=== PATIENT | female | born 2000 | race Caucasian/White ===

== ENCOUNTER 2020-10-10 01:19 | Observation (INO) | payer OTHER, SELFPAY ==
[2020-10-10] VITALS (9 sets, daily range): BP systolic 110–138; BP diastolic 60–95; PULSE 71–105; RESP 16–18; TEMP 35.7–36.6; O2SAT 99–100; BMI 22.4
--- NOTE | ~2020-10-10 | CT_ITS ---
EXAMINATION: CT abdomen pelvis w con DATE: 10/10/2020 03:50 INDICATION: Epigastric pain. Elevated lipase. TECHNIQUE: Computed tomography (CT) of the abdomen and pelvis was performed with 100 mL Omnipaque-350 intravenous contrast. Automated exposure control and iterative reconstruction technique were employe d. The dose-length product was 262.72 mGy-cm. COMPARISON: None FINDINGS: Calcified right lower lobe nodule consistent with old granulomatous disease. Heart size is normal. No pericardial or pleural effusion. Liver, gallbladder, spleen, bilateral adrenal glands and kidneys ar e normal. Swelling with interstitial edema in the head and body of the pancreas system with acute int erstitial pancreatitis. There is additional nonloculated peripancreatic fluid/edema which extends int o the right anterior pararenal space. No loculated abscess/pseudocyst. No nonenhancing pancreatic nec rosis. No abnormal bowel wall thickening or obstruction. The appendix is not visualized. No pericecal inflammatory change to suggest acute appendicitis. Bladder, uterus and right adnexa are normal. 1.4 cm cyst/follicle at the left ovary. Trace amount of free fluid at the cul-de-sac. No abscess or free intraperitoneal gas. No pathologically enlarged abdominal or pelvic lymphadenopathy. Mild lumbar dext rocurvature. L5 is sacralized on the right.. IMPRESSION: 1. Radiographically uncomplicated acute interstitial pancreatitis. Reviewed, dictated and finalized at location A.
--- NOTE | 2020-10-10 02:00 | ECG_ITS ---
Measurements Intervals [place] Rate: 92 P: 84 [place]: 168 QRS: 77 QRSD: 87 T: 24 QT: 357 QTc: 443 Interpretive Statements SINUS RHYTHM POSSIBLE LEFT ATRIAL ENLARGEMENT MINIMAL Q WAVES- INFERIOR LEADS BASELINE ARTIFACT- I, III, AVL BORDERLINE ECG Electronically Signed On 10-10-2020 7:05:33 CDT by Josh Ambrocio D.O.
--- NOTE | 2020-10-10 02:08 | ED.ABDPAIN ---
HPI - Abdominal Pain General Chief Complaint: Abdominal Pain Stated Complaint: abd pain, vomiting Time Seen by Provider: 10/10/20 01:54 Source: patient Mode of arrival: ambulatory Limitations: no limitations History of Present Illness HPI narrative: This is a 19 year old female with history of PUD who presents for evaluation of epigastric abdominal pain. She developed this pain 3 hours ago. She describes pain as sharp constant that will radiate to her back and chest pain. She has associated nausea, vomiting. She took Tylenol just prior to arrival without improvement of her pain. She rates her pain 10/10. She reports having normal BM today. Denies history of pancreatitis or gallbladder disease Related Data Home Medications Medication Instructions Recorded Confirmed venlafaxine [Effexor XR] 37.5 mg PO DAILY 10/10/20 10/10/20 Allergies Allergy/AdvReac Type Severity Reaction Status Date / Time No Known Allergies Allergy Unverified 09/21/15 16:53 Review of Systems Review of Systems: All systems reviewed & are unremarkable except as noted in HPI and below Constitutional: Constitutional: Denies chills and Denies fever(s) Cardiovascular: Cardiovascular: Reports chest pain, Denies rapid heart rate and Denies radiating jaw, neck or arm pain Respiratory: Respiratory: Denies cough and Denies dyspnea Gastrointestinal: Gastrointestinal: Reports abdominal pain, Denies diarrhea, Reports nausea and Reports vomiting PMFSH Past Medical History Medical History (Updated 10/10/20 @ 05:04 by Debra Zambrano MD) Peptic ulcer disease Surgical History Surgical History (Updated 10/10/20 @ 02:11 by Debra Zambrano MD) No pertinent past surgical history Social History Social History (Updated 10/10/20 @ 02:11 by Debra Zambrano MD) Tobacco type: e-cigarettes/vaping Alcohol intake: current Drinks per week: 6 Alcohol use details: 2 drinks a couple times a week Other substance usage details: use vape Spiritual care concerns: No Exam Const: General: alert Orientation/consciousness: patient oriented x3 Eyes: EOM: EOMs intact bilaterally Resp: Effort & Inspection: normal respiratory effort and no retractions Auscultation: clear to auscultation bilaterally Cardio: Rate: regular rate Rhythm: regular rhythm Heart sounds: no murmurs GI: GI Palp: Yes Soft to palpation, Yes Tenderness to palpation present (GI) (RUQ, epigastric, mild RLQ), No Guarding due to palpation present (GI) and No Rigid due to palpation Auscultation: normal bowel sounds Back/Spine/Pelvis: Back: no CVA tenderness Skin: General skin exam: normal color Rashes: no rashes Neuro: General: patient oriented x3, moves all extremities and CN's II-XI intact bilaterally Course Reevaluation(s) Reevaluation #1: I Discussed with patient and family that she will be admitted for pancreatitis. She reports drink 2 [employer] hard lemonades tonight. Date: 10/10/20 Time: 05:02 Consultations Consultation #1: I discussed case, CT and labs with Dr. marcus. She accepts to hospitalist service with aggressive hydration. Date: 10/10/20 Time: 05:03 Vital Signs Vital signs: Vital Signs Temperature 96.3 F L 10/10/20 01:32 Pulse Rate 102 H 10/10/20 01:32 Respiratory Rate 18 10/10/20 01:32 Blood Pressure 110/67 10/10/20 01:32 Pulse Oximetry 100 10/10/20 01:32 Temperature 97.9 F 10/10/20 06:10 Pulse Rate 71 10/10/20 06:10 Respiratory Rate 16 10/10/20 06:10 Blood Pressure 127/71 10/10/20 06:10 Pulse Oximetry 100 10/10/20 06:10 MDM - Abdominal Pain Lab Data Attestation: I reviewed the patient's lab results. Result diagrams: 10/10/20 02:20 10/10/20 02:20 Labs: Lab Results 10/10/20 10/10/20 10/10/20 Range/Units 02:05 02:20 02:20 WBC 13.5 H (4.5-10.0) K/mm3 RBC 4.33 (4.2-5.4) M/mm3 Hgb 14.0 (12.0-15.0) g/dL Hct 40.3 (37.0-47.0) % MCV 93.1
[2020-10-10 02:19] LABS: Add Urine Microscopic? YES; Appearance Urine Cloudy (Clear); Bacteria Urine Trace /hpf; Bilirubin Urine Negative (Negative); Blood Urine Negative (Negative); Color Urine Yellow (Yellow); Glucose Urine UA Negative (Negative); Ketones Urine Trace mg/dL (Negative); Leukocyte Esterase Ur Trace LEU/UL (Negative); Mucus Urine Few /lpf; Nitrate Urine Negative (Negative); Protein Urine Negative (Negative); RBC Urine 0-2 /hpf (0-2); Specific Grav Ur 1.019 (1.001-1.035); Squamous Epithelial Cell Urine Occasional /hpf (Few); Urobilinogen Urine Negative mg/dL (<2.0)
[2020-10-10] MEDS: LACTATED RINGERS 1,000 ML 999 ML IV CONT ×2 (02:21→05:42)
[2020-10-10] MEDS: ONDANSETRON INJ 4 MG/2 ML VIAL IV PUSH ×4 (02:21→20:44)
[2020-10-10] MEDS: PANTOPRAZOLE SODIUM IV 40 MG VIAL IV PUSH (02:21)
[2020-10-10 02:27] LABS: Basophils Absolute Auto 0.1 K/mm3 (0.0-0.1); Basophils Percent Auto 0.4 % (0.2-1.2); Eosinophils Percent Auto 0.1 % (0-4.4); Hematocrit 40.3 % (37.0-47.0); Immature Granulocyte Absolute 0.07 K/mm3 (0.00-0.031); Immature Granulocyte Percent A 0.5 % (0-0.5); Lymphocytes Absolute Auto 1.26 K/mm3 (0.9-3.2); Lymphocytes Percent Auto 9.3 % (18.3-44.2); Mean Corpuscular HGB Conc 34.7 g/dl (32-36); Mean Corpuscular Hemoglobin 32.3 pg (26-34); Mean Corpuscular Volume 93.1 fl (80-100); Mean Platelet Volume 9.7 fl (7.4-10.4); Monocytes Absolute Auto 0.7 K/mm3 (0.1-0.6); Monocytes Percent Auto 5.2 % (2.6-8.5); Neutrophils Absolute Auto 11.4 K/mm3 (1.3-6.7); Neutrophils Percent Auto 84.5 % (45.5-73.1); Platelet Count Result 224 k/mm3 (150-375); Red Blood Count 4.33 M/mm3 (4.2-5.4); Red Cell Distribution Width 12.1 % (11.5-14.5); White Blood Count 13.5 K/mm3 (4.5-10.0)
[2020-10-10 02:41] LABS: Alanine Aminotransferase 18 U/L (4-35); Albumin Level 4.8 g/dL (3.5-5.1); Alkaline Phosphatase 43 U/L (38-126); Anion Gap 11 mmol/L (8-16); Aspartate Amino Transferase 27 U/L (14-36); Bilirubin,Total 0.5 mg/dL (0.2-1.3); Blood Urea Nitrogen 16 mg/dL (7-17); Calcium 9.4 mg/dL (8.4-10.2); Carbon Dioxide 27 mmol/L (22-30); Chloride 97 mmol/L (98-107); Estimated Glomerular Filt Rate > 60; Glucose 107 mg/dL (65-105); Potassium 3.7 mmol/L (3.4-5.0); Sodium 135 mmol/L (137-145)
[2020-10-10 03:02] LABS: Lipase 5886 U/L (23-300)
[2020-10-10] MEDS: MORPHINE SULFATE (*CRX) 2 MG/ML INJ IV PUSH (03:12)
[2020-10-10] MEDS: PROMETHAZINE HCL 25 MG/ML AMPUL 12.5 MG IV PUSH (03:39)
[2020-10-10] MEDS: MORPHINE SULFATE (*CRX) 4 MG/ML INJ IV PUSH ×8 (05:40→23:14)
--- NOTE | 2020-10-10 06:07 | ADMGEN ---
This patient, Chen Ralph, was admitted to Medical Room 241-01. Patient/family oriented to hospital policies and general routines including ID bracelet, bed and alarms, visiting hours, pain management, procedures, bathroom and other care routines, personal items, smoking policy, room service/diet, and visiting hours. Information on how to activate the Rapid Response Team has been discussed. Patient/Family are encouraged to report perceived risks to care and to ask questions if they do not understand what they are told or what they should do.
[2020-10-10] MEDS: LACTATED RINGERS 1,000 ML 200 ML IV CONT ×4 (06:11→21:55)
[2020-10-10] MEDS: FAMOTIDINE 20 MG/2 ML VIAL IV PUSH ×2 (09:09→20:40)
--- NOTE | 2020-10-10 13:11 | PM.IMPN ---
Progress Note: A&P Assessment and Plan (1) Acute pancreatitis: Qualifiers: Acute pancreatitis complication: unspecified Pancreatitis type: alcohol induced Qualified Code(s): K85.20 - Alcohol induced acute pancreatitis without necrosis or infection Code(s): K85.90 - Acute pancreatitis without necrosis or infection, unspecified Status: Acute Assessment and Plan: 10/10/20 13:11 Patient is a 19 year old female with history peptic ulcer disease, depression, and and alcohol use presented to emergency depart with complaint of epigastric pain which started last night at 11:30 p.m., patient still c/o pain, it is sharp and Band like across her abdomen severe enough to cause her to vomit, denies any fever chills, patient lipase are elevated 5886, Ct scan of abdomen showed radiographically uncomplicated acute interstitial pancreatitis. Most likely patient has alcohol-related acute pancreatitis, will keep the patient NPO, IV for fluids, pain medication as needed, will trend her lipase and plan, her last drink was on 10/09 morning. stats no hx of DT. Will continue to monitor and further recommendation to follow. (2) Depression: Code(s): F32.9 - Major depressive disorder, single episode, unspecified Status: Acute Assessment and Plan: Will resume anti depression when patient able to take oral medication (3) Alcohol abuse: Code(s): F10.10 - Alcohol abuse, uncomplicated Status: Acute Assessment and Plan: Patient with history alcohol consumption will continue to monitor Subjective Date/time seen: 10/10/20 13:11 Patient is a 19 year old female with history peptic ulcer disease, depression, and and alcohol use presented to emergency depart with complaint of epigastric pain which started last night at 11:30 p.m., patient still c/o pain, it is sharp and Band like across her abdomen severe enough to cause her to vomit, denies any fever chills, patient lipase are elevated 5886, Ct scan of abdomen showed radiographically uncomplicated acute interstitial pancreatitis. Most likely patient has alcohol-related acute pancreatitis, will keep the patient NPO, IV for fluids, pain medication as needed, will trend her lipase and plan, her last drink was on 10/09 morning. stats no hx of DT. Will continue to monitor and further recommendation to follow. Review of Systems Review of Systems: All systems reviewed & are unremarkable except as noted in HPI and below Exam Narrative: Exam Narrative: Patient is comfortable, NAD HEENT: eyes are clear and none icteric LUNGS:CTA HEART: RR S1S2 ABD: BS+, tender in epigastric Lower extremities: no edema SKIN: nonjaundiced Neuro: grossly intact. Objective Data Vital Signs Vital Signs: Vital Signs - 24 hr 10/10/20 01:32 10/10/20 02:00 10/10/20 03:10 Temperature 96.3 F L 97.6 F Pulse Rate 102 H 105 H Respiratory Rate 18 16 Blood Pressure 110/67 138/95 H Pulse Oximetry 100 100 10/10/20 04:27 10/10/20 06:10 10/10/20 06:18 Temperature 97.9 F 97.1 F L Pulse Rate 80 71 82 Respiratory Rate 16 16 16 Blood Pressure 137/88 127/71 130/77 Pulse Oximetry 100 100 100 10/10/20 10:29 Temperature Pulse Rate Respiratory Rate Blood Pressure Pulse Oximetry 99 Intake/Output Intake/Output: Intake & Output 10/07/20 10/08/20 10/09/20 10/10/20 23:59 23:59 23:59 23:59 Intake Total 3100 Balance 3100 Meds/Results Medications: Active Medications Generic Name Dose Route Start Last Admin Trade Name Freq PRN Reason Stop Dose Admin Famotidine 20 mg 10/10/20 09:00 10/10/20 09:09 Famotidine 20 Mg/2 Ml Vial IV PUSH 20 mg Q12HR MADDIE Administration Acetaminophen 1,000 mg in 100 mls @ 400 mls/hr 10/10/20 05:04 10/10/20 06:13 Ofirmev 1,000 Mg Ivpb IVPB 10/11/20 05:05 Infused Q6H PRN Infusion Mild Pain (1-3) or Fever Lactated Ringer's 1,000 mls @ 200 mls/hr 10/10/20 05:05 10/10/20 11:33 Lr
[2020-10-10 15:05] LABS: Amphetamine Screen Urine Negative (Negative); Barbiturate Screen Urine Negative (Negative); Benzodiazepines Screen Urine Negative (Negative); Cannabinoid Screen Urine Negative (Negative); Cocaine Screen Urine Negative (Negative); Methadone Screen Urine Negative (Negative); Opiate Screen Urine Positive (Negative); Phencyclidine Screen Urine Negative (Negative)
[2020-10-10] MEDS: MELATONIN 3 MG TABLET PO (20:40)
[2020-10-11] MEDS: LACTATED RINGERS 1,000 ML 200 ML IV CONT (03:34)
[2020-10-11] MEDS: MORPHINE SULFATE (*CRX) 4 MG/ML INJ IV PUSH ×2 (03:34→05:44)
[2020-10-11 05:32] LABS: Basophils Percent Auto 0.3 % (0.2-1.2); Eosinophils Percent Auto 0.4 % (0-4.4); Hematocrit 34.2 % (37.0-47.0); Hemoglobin 11.8 g/dL (12.0-15.0); Immature Granulocyte Absolute 0.03 K/mm3 (0.00-0.031); Immature Granulocyte Percent A 0.4 % (0-0.5); Lymphocytes Absolute Auto 1.08 K/mm3 (0.9-3.2); Lymphocytes Percent Auto 14.6 % (18.3-44.2); Mean Corpuscular HGB Conc 34.5 g/dl (32-36); Mean Corpuscular Hemoglobin 32.3 pg (26-34); Mean Corpuscular Volume 93.7 fl (80-100); Mean Platelet Volume 9.9 fl (7.4-10.4); Monocytes Absolute Auto 0.5 K/mm3 (0.1-0.6); Monocytes Percent Auto 6.8 % (2.6-8.5); Neutrophils Absolute Auto 5.7 K/mm3 (1.3-6.7); Neutrophils Percent Auto 77.5 % (45.5-73.1); Platelet Count Result 148 k/mm3 (150-375); Red Blood Count 3.65 M/mm3 (4.2-5.4); Red Cell Distribution Width 12.3 % (11.5-14.5); White Blood Count 7.4 K/mm3 (4.5-10.0)
[2020-10-11 05:41] VITALS: BP 118/63; PULSE 80; RESP 16; TEMP 36.6; O2SAT 100
[2020-10-11 05:53] LABS: Alanine Aminotransferase 11 U/L (4-35); Albumin Level 3.1 g/dL (3.5-5.1); Alkaline Phosphatase 33 U/L (38-126); Anion Gap 2 mmol/L (8-16); Aspartate Amino Transferase 19 U/L (14-36); Bilirubin,Total 0.8 mg/dL (0.2-1.3); Blood Urea Nitrogen 3 mg/dL (7-17); Calcium 7.8 mg/dL (8.4-10.2); Carbon Dioxide 31 mmol/L (22-30); Chloride 102 mmol/L (98-107); Estimated CRCL calculation 119 ml/min; Estimated Glomerular Filt Rate > 60; Glucose 99 mg/dL (65-105); Lipase 780 U/L (23-300); Magnesium 1.5 mg/dL (1.6-2.3); Potassium 3.5 mmol/L (3.4-5.0); Sodium 135 mmol/L (137-145)
[2020-10-11] MEDS: MAGNESIUM SULF 2 GM/WATER 50ML 2 GM/50 ML BAG IVPB (08:24)
[2020-10-11] MEDS: FAMOTIDINE 20 MG/2 ML VIAL IV PUSH ×2 (08:25→20:06)
[2020-10-11] MEDS: HYDROcodone/acetaminophen (*CRX) 5-325 MG TABLET 1 TAB PO ×2 (08:25→18:00)
[2020-10-11] MEDS: POTASSIUM CHLORIDE 20 MEQ TABLET 40 MEQ PO (08:25)
[2020-10-11] MEDS: LACTATED RINGERS 1,000 ML 125 ML IV CONT ×2 (08:26→18:01)
[2020-10-11] MEDS: MAGNESIUM OXIDE 400 MG TABLET PO (09:06)
[2020-10-11] MEDS: ACETAMINOPHEN 325 MG TABLET 650 MG PO ×2 (12:32→20:11)
[2020-10-11 14:00] VITALS: BP 130/78; PULSE 94; RESP 16; TEMP 36.6; O2SAT 100
[2020-10-11 15:51] LABS: Lipase 513 U/L (23-300)
--- NOTE | 2020-10-11 16:30 | PM.IMPN ---
Progress Note: A&P Assessment and Plan (1) Acute pancreatitis: Qualifiers: Acute pancreatitis complication: unspecified Pancreatitis type: alcohol induced Qualified Code(s): K85.20 - Alcohol induced acute pancreatitis without necrosis or infection Code(s): K85.90 - Acute pancreatitis without necrosis or infection, unspecified Status: Acute Assessment and Plan: 10/11/20 16:30 Patient is a 19 year old female with history peptic ulcer disease, depression, and and alcohol use presented to emergency depart with complaint of epigastric pain which started last night at 11:30 p.m., patient still c/o pain, it is sharp and Band like across her abdomen severe enough to cause her to vomit, denies any fever chills, patient lipase are elevated 5886, Ct scan of abdomen showed radiographically uncomplicated acute interstitial pancreatitis. Most likely patient has alcohol-related acute pancreatitis, will keep the patient NPO, IV for fluids, pain medication as needed, will trend her lipase and plan, her last drink was on 10/09 morning. stats no hx of DT. Will continue to monitor and further recommendation to follow. Today patient states feeling much better the pain has improved and no nausea or vomiting, patient lipase had trended down from 5886 to 780 this am will start the patient on clear liquid, and advanced to full liquid as tolerated, will continue to monitor further recommendation to follow. (2) Depression: Code(s): F32.9 - Major depressive disorder, single episode, unspecified Status: Acute Assessment and Plan: Will resume anti depression when patient able to take oral medication (3) Alcohol abuse: Code(s): F10.10 - Alcohol abuse, uncomplicated Status: Acute Assessment and Plan: Patient with history alcohol consumption will continue to monitor Subjective Date/time seen: 10/11/20 16:30 Patient is a 19 year old female with history peptic ulcer disease, depression, and and alcohol use presented to emergency depart with complaint of epigastric pain which started last night at 11:30 p.m., patient still c/o pain, it is sharp and Band like across her abdomen severe enough to cause her to vomit, denies any fever chills, patient lipase are elevated 5886, Ct scan of abdomen showed radiographically uncomplicated acute interstitial pancreatitis. Most likely patient has alcohol-related acute pancreatitis, will keep the patient NPO, IV for fluids, pain medication as needed, will trend her lipase and plan, her last drink was on 10/09 morning. stats no hx of DT. Will continue to monitor and further recommendation to follow. Today patient states feeling much better the pain has improved and no nausea or vomiting, patient lipase had trended down from 5886 to 780 this am will start the patient on clear liquid, and advanced to full liquid as tolerated, will continue to monitor further recommendation to follow. Review of Systems Review of Systems: All systems reviewed & are unremarkable except as noted in HPI and below Exam Narrative: Exam Narrative: Patient is comfortable, NAD HEENT: eyes are clear and none icteric LUNGS:CTA HEART: RR S1S2 ABD: BS+, tender in epigastric Lower extremities: no edema SKIN: nonjaundiced Neuro: grossly intact. Objective Data Vital Signs Vital Signs: Vital Signs - 24 hr 10/10/20 21:15 10/11/20 05:41 Temperature 97.9 F 97.9 F Pulse Rate 91 80 Respiratory Rate 16 16 Blood Pressure 132/60 118/63 Pulse Oximetry 100 100 Intake/Output Intake/Output: Intake & Output 10/08/20 10/09/20 10/10/20 10/11/20 23:59 23:59 23:59 23:59 Intake Total 5200 3110 Output Total 600 Balance 4600 3110 Meds/Results Medications: Active Medications Generic Name Dose Route Start Last Admin Trade Name Freq PRN Reason Stop Dose Admin Acetaminophen 650 mg 10/11/20 07:56 10/11/20 12:32 Acetaminophen 325 Mg Tablet PO 650 mg
[2020-10-11 22:00] VITALS: BP 119/75; PULSE 92; RESP 16; TEMP 36.3; O2SAT 100
[2020-10-12] MEDS: HYDROcodone/acetaminophen (*CRX) 5-325 MG TABLET 1 TAB PO (01:34)
[2020-10-12] MEDS: LACTATED RINGERS 1,000 ML 125 ML IV CONT (01:36)
[2020-10-12 05:27] VITALS: BP 109/75; PULSE 84; RESP 16; TEMP 35.9; O2SAT 96
[2020-10-12 05:53] LABS: Hematocrit 34.9 % (37.0-47.0); Hemoglobin 11.6 g/dL (12.0-15.0); Mean Corpuscular HGB Conc 33.2 g/dl (32-36); Mean Corpuscular Hemoglobin 31.8 pg (26-34); Mean Corpuscular Volume 95.6 fl (80-100); Mean Platelet Volume 10.5 fl (7.4-10.4); Platelet Count Result 171 k/mm3 (150-375); Red Blood Count 3.65 M/mm3 (4.2-5.4); Red Cell Distribution Width 12.3 % (11.5-14.5); White Blood Count 8.7 K/mm3 (4.5-10.0)
[2020-10-12 06:11] LABS: Alanine Aminotransferase 10 U/L (4-35); Albumin Level 3.3 g/dL (3.5-5.1); Alkaline Phosphatase 40 U/L (38-126); Anion Gap 2 mmol/L (8-16); Aspartate Amino Transferase 20 U/L (14-36); Bilirubin,Total 0.5 mg/dL (0.2-1.3); Blood Urea Nitrogen 3 mg/dL (7-17); Calcium 8.1 mg/dL (8.4-10.2); Carbon Dioxide 31 mmol/L (22-30); Chloride 105 mmol/L (98-107); Estimated CRCL calculation 119 ml/min; Estimated Glomerular Filt Rate > 60; Glucose 110 mg/dL (65-105); Lipase 294 U/L (23-300); Potassium 3.8 mmol/L (3.4-5.0); Sodium 138 mmol/L (137-145)
[2020-10-12] MEDS: MAGNESIUM OXIDE 400 MG TABLET PO (08:54)
[2020-10-12] MEDS: FAMOTIDINE 20 MG/2 ML VIAL IV PUSH (08:55)
[2020-10-12 09:17] VITALS: O2SAT 99
--- NOTE | 2020-10-12 10:09 | PM.DS ---
DS: Admitting Diagnosis Admitting Diagnosis Admitting Diagnosis: Epigastric pain DS: Discharge Diagnosis Discharge Diagnosis (1) Acute pancreatitis: Qualifiers: Acute pancreatitis complication: unspecified Pancreatitis type: alcohol induced Qualified Code(s): K85.20 - Alcohol induced acute pancreatitis without necrosis or infection Code(s): K85.90 - Acute pancreatitis without necrosis or infection, unspecified Status: Acute Assessment and Plan: 10/11/20 16:30 Patient is a 19 year old female with history peptic ulcer disease, depression, and and alcohol use presented to emergency depart with complaint of epigastric pain which started last night at 11:30 p.m., patient still c/o pain, it is sharp and Band like across her abdomen severe enough to cause her to vomit, denies any fever chills, patient lipase are elevated 5886, Ct scan of abdomen showed radiographically uncomplicated acute interstitial pancreatitis. Most likely patient has alcohol-related acute pancreatitis, will keep the patient NPO, IV for fluids, pain medication as needed, will trend her lipase and plan, her last drink was on 10/09 morning. stats no hx of DT. Will continue to monitor and further recommendation to follow. Today patient states feeling much better the pain has improved and no nausea or vomiting, patient lipase had trended down from 5886 to 780 this am will start the patient on clear liquid, and advanced to full liquid as tolerated, will continue to monitor further recommendation to follow. (2) Depression: Code(s): F32.9 - Major depressive disorder, single episode, unspecified Status: Acute Assessment and Plan: Will resume anti depression when patient able to take oral medication (3) Alcohol abuse: Code(s): F10.10 - Alcohol abuse, uncomplicated Status: Acute Assessment and Plan: Patient with history alcohol consumption will continue to monitor DS: Summary Hospital Course Reason for hospitalization: Patient is a 19 year old female with history peptic ulcer disease, depression, and and alcohol use presented to emergency depart with complaint of epigastric pain which started last night at 11:30 p.m., patient still c/o pain, it is sharp and Band like across her abdomen severe enough to cause her to vomit, denies any fever chills, patient lipase are elevated 5886, Ct scan of abdomen showed radiographically uncomplicated acute interstitial pancreatitis. Most likely patient has alcohol-related acute pancreatitis, will keep the patient NPO, IV for fluids, pain medication as needed, will trend her lipase and plan, her last drink was on 10/09 morning. stats no hx of DT. Will continue to monitor and further recommendation to follow. Hospital Course: Patient is a 19 year old female with history peptic ulcer disease, depression, and and alcohol use presented to emergency depart with complaint of epigastric pain which started last night at 11:30 p.m., patient still c/o pain, it is sharp and Band like across her abdomen severe enough to cause her to vomit, denies any fever chills, patient lipase are elevated 5886, Ct scan of abdomen showed radiographically uncomplicated acute interstitial pancreatitis. Most likely patient has alcohol-related acute pancreatitis, will keep the patient NPO, IV for fluids, pain medication as needed, will trend her lipase and plan, her last drink was on 10/09 morning. stats no hx of DT. Will continue to monitor and further recommendation to follow. patient states feeling much better the pain has improved and no nausea or vomiting, patient lipase had trended down from 5886 to 780 this am will start the patient on clear liquid, and advanced to full liquid as tolerated, will continue to monitor further recommendation to follow. patient was feeling better yesterday started on clear liquids and advance her diet and able to tolerated her diet without any complaints, patient is
--- NOTE | 2020-11-07 10:44 | PM.IMHP ---
H&P: HPI History of Present Illness Date/Time: 11/07/20 10:44 Patient is a 19 year old female with history peptic ulcer disease, depression, and and alcohol use presented to emergency depart with complaint of epigastric pain which started last night at 11:30 p.m., patient still c/o pain, it is sharp and Band like across her abdomen severe enough to cause her to vomit, denies any fever chills, patient lipase are elevated 5886, Ct scan of abdomen showed radiographically uncomplicated acute interstitial pancreatitis. Most likely patient has alcohol-related acute pancreatitis, will keep the patient NPO, IV for fluids, pain medication as needed, will trend her lipase and plan, her last drink was on 10/09 morning. stats no hx of DT. Will continue to monitor and further recommendation to follow. Chief Complaint: Abdominal Pain Review of Systems Review of Systems: All systems reviewed & are unremarkable except as noted in HPI and below PMFSH Past Medical History Medical History (Updated 10/10/20 @ 13:23 by Bhavik Bronson MD) Peptic ulcer disease Surgical History Surgical History (Updated 10/10/20 @ 02:11 by Debra Zambrano MD) No pertinent past surgical history Family History Family History (Updated 10/10/20 @ 06:20 by Anastasia Stewart RN) Other Breast cancer Father Hypertension Mother Hypertension Heart attack Social History Social History (Updated 10/10/20 @ 02:11 by Debra Zambrano MD) Smoking packs per day: 0.5 Smoking cigarettes per day: 10.0 Years smoked: 4 Smoking pack-years: 2.00 Smoking status: Former smoker Tobacco type: cigarettes Second hand tobacco smoke exposure: Yes Smoking end date: 07/15/16 Additional smoking assessment comments: currently uses vape Alcohol intake: current Drinks per week: 6 Alcohol use details: 2 drinks a couple times a week Other substance usage details: use vape Spiritual care concerns: No Meds Home Medications and Allergies Home Medications Medication Instructions Recorded Confirmed Type venlafaxine [Effexor XR] 37.5 mg PO DAILY 10/10/20 10/10/20 History magnesium oxide 400 mg PO QAM #30 tablet 10/12/20 Rx Allergies Allergy/AdvReac Type Severity Reaction Status Date / Time No Known Allergies Allergy Unverified 09/21/15 16:53 Exam Narrative: Exam Narrative: Patient is comfortable, NAD HEENT: eyes are clear and none icteric LUNGS:CTA HEART: RR S1S2 ABD: BS+, tender in epigastric Lower extremities: no edema SKIN: nonjaundiced Neuro: grossly intact. Assessment and Plan Assessment and plan (1) Acute pancreatitis: Qualifiers: Acute pancreatitis complication: unspecified Pancreatitis type: alcohol induced Qualified Code(s): K85.20 - Alcohol induced acute pancreatitis without necrosis or infection Code(s): K85.90 - Acute pancreatitis without necrosis or infection, unspecified Status: Acute Assessment and Plan: Patient is a 19 year old female with history peptic ulcer disease, depression, and and alcohol use presented to emergency depart with complaint of epigastric pain which started last night at 11:30 p.m., patient still c/o pain, it is sharp and Band like across her abdomen severe enough to cause her to vomit, denies any fever chills, patient lipase are elevated 5886, Ct scan of abdomen showed radiographically uncomplicated acute interstitial pancreatitis. Most likely patient has alcohol-related acute pancreatitis, will keep the patient NPO, IV for fluids, pain medication as needed, will trend her lipase and plan, her last drink was on 10/09 morning. stats no hx of DT. Will continue to monitor and further recommendation to follow. (2) Alcohol abuse: Code(s): F10.10 - Alcohol abuse, uncomplicated Status: Acute Assessment and Plan: Patient with history alcohol consumption will continue to monitor (3) Depression: Code(s): F32.9 - Major depressive d
== END 2020-10-12 10:45 | disposition home or self-care (01) ==
LOC: ANHED 05:04 → ANH2MED 05:50
PROVIDERS: Admitting Provider Internal Medicine; Emergency Provider General Practice; PCP Family Medicine; Visit Provider Family Medicine
DX: K85.20 Alcohol induced acute pancreatitis without necrosis or infection (principal); K27.9 Peptic ulcer, site unspecified, unspecified as acute or chronic, without hemorrhage or perforation; F32.9 Major depressive disorder, single episode, unspecified; F10.10 Alcohol abuse, uncomplicated; F17.290 Nicotine dependence, other tobacco product, uncomplicated; Z79.899 Other long term (current) drug therapy
CPT/HCPCS: 36415; 74177; 80053; 80307; 81001; 81025; 83690; 83735; 85025; 85027; 93005; 96361; 96365; 96374; 96375; 96376; 99285; A9270; C9113; G0378; G0379; J0131; J2270; J2405; J2550; J3475; J7120; Q9967

== ENCOUNTER 2021-01-14 21:40 | Emergency (ER) | payer OTHER, SELFPAY ==
--- NOTE | ~2021-01-14 | XR_ITS ---
EXAMINATION: XR abdomen/kub 1V INDICATION: Constipation, lower abdominal pain TECHNIQUE: Supine views of the abdomen were obtained on 2 radiographs. COMPARISON: CT, 10/10/2020 FINDINGS: The bowel gas pattern is normal. No dilated loops of bowel are evident. The visualized osse ous structures are unremarkable. IMPRESSION: 1. No radiographic correlate for the patient's symptoms. Reviewed, dictated and finalized at location A.
[2021-01-14 21:46] VITALS: BP 146/103; PULSE 82; RESP 16; TEMP 36.4; O2SAT 100
--- NOTE | 2021-01-14 21:56 | PC.NURSE ---
Patient attempting to have a BM.
[2021-01-14 22:41] LABS: Add Urine Microscopic? YES; Appearance Urine Clear (Clear); Bilirubin Urine Negative (Negative); Blood Urine Negative (Negative); Color Urine Yellow (Yellow); Glucose Urine UA Negative (Negative); Ketones Urine 1+ mg/dL (Negative); Leukocyte Esterase Ur Negative LEU/UL (Negative); Mucus Urine Rare /lpf; Nitrate Urine Negative (Negative); Protein Urine 1+ mg/dL (Negative); Squamous Epithelial Cell Urine Many /hpf (Few); WBC Urine 0-3 /hpf
--- NOTE | 2021-01-14 22:42 | PC.NURSE ---
Xray in room at this time.
--- NOTE | 2021-01-14 23:16 | ED.GENADULT ---
HPI - General Adult General Chief complaint: Abdominal Pain Stated complaint: CONSTIPATED X2 DAYS Time Seen by Provider: 01/14/21 21:42 History of Present Illness HPI narrative: Patient is a 20-year-old female who presents ER with reports of constipation. Ongoing for 2 days. Feels like her rectum will spasm at times. She did just have a loose stool without blood noted. Patient also endorses dysuria ongoing over the last 5 days. She reports that she recently was exposed to chlamydia by her significant other. He was tested but has not been formally diagnosed. She reports she had chlamydia back in November of this year for which she received azithromycin and ceftriaxone. She denies anal intercourse but does endorse analingus. No pelvic pain or suprapubic pressure. No change in vaginal discharge. Related Data Home Medications Medication Instructions Recorded Confirmed venlafaxine [Effexor XR] 37.5 mg PO DAILY 10/10/20 10/10/20 dicyclomine mg 01/14/21 pantoprazole PO 01/14/21 Allergies Allergy/AdvReac Type Severity Reaction Status Date / Time No Known Allergies Allergy Verified 01/14/21 22:10 Review of Systems Review of Systems: All systems reviewed & are unremarkable except as noted in HPI and below Constitutional: Constitutional: Denies chills, Denies fever(s) and Denies weakness Gastrointestinal: Gastrointestinal: Denies abdominal pain, Reports constipation, Denies nausea and Denies vomiting Genitourinary: Genitourinary: Denies abnormal vaginal bleeding, Reports dysuria, Denies pelvic pain and Reports vaginal discharge [facility] Past Medical History Medical History (Updated 01/15/21 @ 00:37 by Monroe Haro MD) Peptic ulcer disease Surgical History Surgical History (Updated 10/10/20 @ 02:11 by Debra Zambrano MD) No pertinent past surgical history Family History Family History (Updated 10/10/20 @ 06:20 by Anastasia Stewart RN) Other Breast cancer Father Hypertension Mother Hypertension Heart attack Social History Social History (Updated 10/10/20 @ 02:11 by Debra Zambrano MD) Smoking packs per day: 0.5 Smoking cigarettes per day: 10.0 Years smoked: 4 Smoking pack-years: 2.00 Smoking status: Former smoker Tobacco type: cigarettes Second hand tobacco smoke exposure: Yes Smoking end date: 07/15/16 Additional smoking assessment comments: currently uses vape Alcohol intake: current Drinks per week: 6 Other substance usage details: use vape Spiritual care concerns: No Exam Narrative: Exam Narrative: GENERAL: Well-appearing, well-nourished, and in no acute distress. HEAD: Normocephalic, atraumatic. ENT: Mucous membranes moist. CHEST: Clear to auscultation. No respiratory distress. HEART: Regular rate and rhythm. Normal peripheral pulses. ABDOMEN: Soft, nontender, nondistended. : Normal external genitalia, small amount of vaginal discharge, mild friability of the cervix without CMT, no bleeding. EXTREMITIES: Normal range of motion. No edema. SKIN: Warm, dry, no rash. NEURO: Alert and oriented x3. Course Course Emergency Course: Patient treated for STI. Received enema and feels much better and has had evacuation of stool. Discharge home. Vital Signs Vital signs: Vital Signs Temperature 97.5 F L 01/14/21 21:46 Pulse Rate 82 01/14/21 21:46 Respiratory Rate 16 01/14/21 21:46 Blood Pressure 146/103 H 01/14/21 21:46 Pulse Oximetry 100 01/14/21 21:46 Temperature 97.5 F L 01/14/21 21:46 Pulse Rate 78 01/15/21 00:27 Respiratory Rate 17 01/15/21 00:27 Blood Pressure 127/78 01/15/21 00:27 Pulse Oximetry 98 01/15/21 00:27 Medical Decision Making Vital Signs Vital Signs: Vital Signs Temperature 97.5 F L 01/14/21 21:46 Pulse Rate 82 01/14/21 21:46 Respiratory Rate 16 01/14/21 21:46 Blood Pressure 146/103 H 01/14/21 21:46 Pulse Oximetry 100 01/14/21 21:46 Temperature 97.5 F L 01/14/21 21:46
[2021-01-14] MEDS: DOXYCYCLINE HYCLATE 100 MG TABLET PO (23:17)
[2021-01-14] MEDS: cefTRIAXone 1 GM VIAL 0.5 GM IM (23:18)
[2021-01-14] MEDS: LIDOCAINE HCL 1% LOCAL INJ 20 ML VIAL 2.1 ML XX (23:18)
--- NOTE | 2021-01-14 23:31 | PC.NURSE ---
Patient on BSC after soap suds enema.
[2021-01-15 00:27] VITALS: BP 127/78; PULSE 78; RESP 17; O2SAT 98
--- NOTE | 2021-01-15 00:27 | PC.NURSE ---
Patient states some relief with the enema. Patient was able to have a BM after enema.Patient states relief of her back pain and some relief of her abd pain, states it just feels like I have period cramps now.
== END 2021-01-15 00:56 | disposition home or self-care (01) ==
PROVIDERS: Emergency Provider Emergency Medicine; PCP Family Medicine
DX: K59.00 Constipation, unspecified (principal); Z20.2 Contact with and (suspected) exposure to infections with a predominantly sexual mode of transmission
CPT/HCPCS: 74018; 81001; 87070; 87491; 87591; 87808; 96372; 99284; A9270; J0696

== ENCOUNTER 2021-03-25 22:13 | Emergency (ER) | payer OTHER, SELFPAY ==
--- NOTE | ~2021-03-25 | CT_ITS ---
EXAMINATION: CT abdomen pelvis w con EXAM DATE: 03/25/2021 23:42 INDICATION: Diffuse abdominal pain TECHNIQUE: Spiral CT of the abdomen and pelvis was performed following intravenous injection of 100 m L Omnipaque 350. Axial, coronal and sagittal images of the abdomen and pelvis were reviewed. The do se-length product (DLP) for this examination was 264.80 mGy-cm. The exposure was tailored according to patient size (auto mA exposure control), and iterative reconstruction (ASIR) was used as additiona l dose reduction technique. Comparison is made to prior examination from 10/10/2020. FINDINGS: The bladder is distended, and there is mild bilateral hydronephrosis which could be transmi tted from the bladder. No obstructing stones identified. Please exclude urinary tract infection with urinalysis. The liver, spleen, adrenal glands and pancreas are unremarkable. Gallbladder is unremarkable. No bi liary obstruction. The bladder is unremarkable. There is no retroperitoneal or pelvic lymphadenopat hy. The appendix is normal. The stomach and small bowel are unremarkable. There is expected amount of c olonic stool. No free intraperitoneal gas. The heart is normal in size. There are no pericardial or pleural effusions. Right lower lobe calcified granuloma. The bones are unremarkable. Compared to prior study, peripancreatic inflammation has resolved. IMPRESSION: Mild bilateral hydroureteronephrosis could be transmitted from distended bladder. Please check urinalysis to exclude urinary tract infection. Reviewed, dictated and finalized at location A. IMPRESSION: Mild bilateral hydroureteronephrosis could be transmitted from dist ended bladder. Please check urinalysis to exclude urinary tract infection.
[2021-03-25 22:16] VITALS: BP 133/100; PULSE 118; RESP 18; TEMP 36.6; O2SAT 100
[2021-03-25] MEDS: ONDANSETRON INJ 4 MG/2 ML VIAL IV PUSH (22:46)
[2021-03-25] MEDS: SODIUM CHLORIDE 0.9% IV 1,000 ML 999 ML IV CONT (22:46)
[2021-03-25] MEDS: MORPHINE SULFATE (*CRX) 4 MG/ML INJ IV PUSH (22:47)
[2021-03-25 22:57] LABS: Basophils Percent Auto 0.4 % (0.2-1.2); Eosinophils Absolute Auto 0.1 K/mm3 (0-0.3); Eosinophils Percent Auto 0.9 % (0-4.4); Hematocrit 37.6 % (37.0-47.0); Hemoglobin 12.9 g/dL (12.0-15.0); Immature Granulocyte Absolute 0.04 K/mm3 (0.00-0.031); Immature Granulocyte Percent A 0.5 % (0-0.5); Lymphocytes Absolute Auto 2.33 K/mm3 (0.9-3.2); Lymphocytes Percent Auto 31.2 % (18.3-44.2); Mean Corpuscular HGB Conc 34.3 g/dl (32-36); Mean Corpuscular Hemoglobin 32.5 pg (26-34); Mean Corpuscular Volume 94.7 fl (80-100); Mean Platelet Volume 9.8 fl (7.4-10.4); Monocytes Absolute Auto 0.6 K/mm3 (0.1-0.6); Monocytes Percent Auto 8.3 % (2.6-8.5); Neutrophils Absolute Auto 4.4 K/mm3 (1.3-6.7); Neutrophils Percent Auto 58.7 % (45.5-73.1); Platelet Count Result 233 k/mm3 (150-375); Red Blood Count 3.97 M/mm3 (4.2-5.4); Red Cell Distribution Width 11.9 % (11.5-14.5); White Blood Count 7.5 K/mm3 (4.5-10.0)
[2021-03-25 23:11] LABS: Acetaminophen < 10 ug/mL (10-30); Ethanol 157 mg/dL (<10); Salicylate < 1.0 mg/dL (2-20)
[2021-03-25 23:12] LABS: Add Urine Microscopic? YES; Appearance Urine Clear (Clear); Bacteria Urine Trace /hpf; Bilirubin Urine Negative (Negative); Blood Urine Negative (Negative); Color Urine Straw (Yellow); Glucose Urine UA Negative (Negative); Ketones Urine Negative (Negative); Leukocyte Esterase Ur Trace LEU/UL (Negative); Nitrate Urine Negative (Negative); Protein Urine Negative (Negative); RBC Urine 0-2 /hpf (0-2); Specific Grav Ur 1.009 (1.001-1.035); Squamous Epithelial Cell Urine Moderate /hpf (Few); Urobilinogen Urine Negative mg/dL (<2.0); WBC Urine 0-3 /hpf
[2021-03-25 23:17] LABS: Amphetamine Screen Urine Negative (Negative); Barbiturate Screen Urine Negative (Negative); Benzodiazepines Screen Urine Negative (Negative); Cannabinoid Screen Urine Negative (Negative); Cocaine Screen Urine Positive (Negative); Methadone Screen Urine Negative (Negative); Opiate Screen Urine Negative (Negative); Phencyclidine Screen Urine Negative (Negative)
[2021-03-25 23:24] LABS: Alanine Aminotransferase 16 U/L (4-35); Albumin Level 4.5 g/dL (3.5-5.1); Alkaline Phosphatase 37 U/L (38-126); Anion Gap 15 mmol/L (8-16); Aspartate Amino Transferase 26 U/L (14-36); Bilirubin,Total 1.3 mg/dL (0.2-1.3); Blood Urea Nitrogen 10 mg/dL (7-17); Calcium 8.9 mg/dL (8.4-10.2); Carbon Dioxide 19 mmol/L (22-30); Chloride 107 mmol/L (98-107); Estimated CRCL calculation 113 ml/min; Estimated Glomerular Filt Rate > 60; Glucose 83 mg/dL (65-110); Lipase 96 U/L (23-300); Sodium 141 mmol/L (137-145)
[2021-03-26 00:58] VITALS: BP 126/74; PULSE 77; RESP 18; O2SAT 100
[2021-03-26] MEDS: KETOROLAC 30 MG/ML VIAL (*BKC) IV PUSH (01:51)
--- NOTE | 2021-03-26 02:36 | ED.GENADULT ---
HPI - General Adult General Chief complaint: Abdominal Pain Stated complaint: Abd cramping, mental issues Time Seen by Provider: 03/25/21 22:21 History of Present Illness HPI narrative: Patient is a 20-year-old female presents to emergency department with chief complaint of abdominal pain. Patient reports she has pain all throughout her abdomen reports its in the upper parts and also in the lower parts. Patient reports that she is also been very anxious denies actual suicidal ideation at this time but states she has been under a lot of stress patient reports that she has had irregular periods recently and had some bleeding the other day but then stopped having bleeding. Patient states that she has had a test recently that was negative. Related Data Home Medications Medication Instructions Recorded Confirmed amitriptyline 25 mg 03/25/21 pantoprazole 40 mg PO 03/25/21 venlafaxine 150 mg PO 03/25/21 Allergies Allergy/AdvReac Type Severity Reaction Status Date / Time latex Allergy Hives Verified 03/25/21 22:53 Review of Systems Review of Systems: A 10 system review of systems was completed on the patient and is negative except for what is stated in the HPI. Nursing and ancillary documentation was reviewed. [facility] Past Medical History Medical History Peptic ulcer disease Surgical History Surgical History No pertinent past surgical history Family History Family History Other Breast cancer Father Hypertension Mother Hypertension Heart attack Social History Social History Smoking packs per day: 0.5 Smoking cigarettes per day: 10.0 Years smoked: 4 Smoking pack-years: 2.00 Smoking status: Former smoker Tobacco type: cigarettes Second hand tobacco smoke exposure: Yes Smoking end date: 07/15/16 Additional smoking assessment comments: currently uses vape Alcohol intake: current Drinks per week: 6 Alcohol use details: 2 drinks a couple times a week Other substance usage details: use vape Spiritual care concerns: No Exam Narrative: GENERAL: Well-appearing, well-nourished, and in no acute distress. HEAD: Normocephalic, atraumatic. EYES: PERRLA and EOMI. ENT: Nares clear, no rhinorrhea or epistaxis. Mucous membranes moist. NECK: Supple. CHEST: Clear to auscultation. No respiratory distress. HEART: Regular rate and rhythm. No murmur heard. Normal peripheral pulses. ABDOMEN: Soft, nontender, nondistended, normal active bowel sounds. EXTREMITIES: Normal range of motion. No edema. SKIN: Warm, dry, no rash. NEURO: No focal deficits. Alert and oriented x3. PSYCH: Normal mood and affect. Course Course Emergency Course: CT scan shows no evidence of acute process she does have mild bilateral hydronephrosis but no evidence of obstructive uropathy. Vital Signs Vital signs: Vital Signs Temperature 36.6 C 03/25/21 22:16 Pulse Rate 118 H 03/25/21 22:16 Respiratory Rate 18 03/25/21 22:16 Blood Pressure 133/100 H 03/25/21 22:16 Pulse Oximetry 100 03/25/21 22:16 Temperature 36.6 C 03/25/21 22:16 Pulse Rate 77 03/26/21 00:58 Respiratory Rate 18 03/26/21 00:58 Blood Pressure 126/74 03/26/21 00:58 Pulse Oximetry 100 03/26/21 00:58 Medical Decision Making Vital Signs Vital Signs: Vital Signs Temperature 36.6 C 03/25/21 22:16 Pulse Rate 118 H 03/25/21 22:16 Respiratory Rate 18 03/25/21 22:16 Blood Pressure 133/100 H 03/25/21 22:16 Pulse Oximetry 100 03/25/21 22:16 Temperature 36.6 C 03/25/21 22:16 Pulse Rate 77 03/26/21 00:58 Respiratory Rate 18 03/26/21 00:58 Blood Pressure 126/74 03/26/21 00:58 Pulse Oximetry 100 03/26/21 00:58 Lab Data Resul
== END 2021-03-26 03:06 | disposition home or self-care (01) ==
PROVIDERS: Emergency Provider Emergency Medicine; PCP Family Medicine
DX: R10.84 Generalized abdominal pain (principal); Z87.11 Personal history of peptic ulcer disease; F17.290 Nicotine dependence, other tobacco product, uncomplicated
CPT/HCPCS: 36415; 74177; 80053; 80307; 81001; 81025; 83690; 84443; 85025; 96361; 96374; 96375; 99284; J1885; J2270; J2405; J7030; Q9967

== ENCOUNTER 2021-04-21 12:48 | Outpatient (CLI) | payer OTHER, SELFPAY ==
--- NOTE | ~2021-04-21 | US_ITS ---
EXAMINATION: US pelvic complete w TV DATE: 04/21/2021 14:11 INDICATION: Amenorrhea. TECHNIQUE: Multiple transabdominal and transvaginal sonographic images of the pelvis were obtained. COMPARISON: CT abdomen and pelvis 03/25/2021 FINDINGS: TRANSABDOMINAL ULTRASOUND: The uterus measures 6.6 x 3.9 x 3.2 cm. There is no free fluid in the pelvis. TRANSVAGINAL ULTRASOUND: The endometrial complex measures 5 mm in thickness. The right ovary measures 3.0 x 2.5 x 2.8 cm. The left ovary measures 3.0 x 2.4 x 2.3 cm. There is normal vascular flow in the ovaries. IMPRESSION: 1. Normal pelvis. Reviewed, dictated and finalized at location A. IMPRESSION: 1. Normal pelvis.
== END 2021-04-21 12:49 | disposition home or self-care (01) ==
LOC: ANHIMG 12:54
PROVIDERS: PCP Family Medicine; Visit Provider Family Medicine
DX: N91.2 Amenorrhea, unspecified (principal)
CPT/HCPCS: 76830; 76856

== ENCOUNTER 2021-04-24 06:55 | Emergency (ER) | payer OTHER, SELFPAY ==
[2021-04-24 06:59] VITALS: BP 100/80; PULSE 108; RESP 18; TEMP 35.9; O2SAT 99
[2021-04-24 07:04] VITALS: RESP 18
--- NOTE | 2021-04-24 08:10 | ECG_ITS ---
Measurements Intervals [place] Rate: 77 P: 65 TX: 152 QRS: 71 QRSD: 84 T: 40 QT: 375 QTc: 426 Interpretive Statements SINUS RHYTHM MINIMAL Q WAVES- INFERIOR LEADS BASELINE WANDER- I, II, AVR, AVL, AVF, V3-V6 BORDERLINE ECG Electronically Signed On 04-24-2021 14:28:42 CDT by Josh Ambrocio D.O.
[2021-04-24 08:35] LABS: Basophils Absolute Auto 0.1 K/mm3 (0.0-0.1); Basophils Percent Auto 1.4 % (0.2-1.2); Eosinophils Absolute Auto 0.1 K/mm3 (0-0.3); Eosinophils Percent Auto 1.8 % (0-4.4); Hematocrit 37.7 % (37.0-47.0); Hemoglobin 12.7 g/dL (12.0-15.0); Immature Granulocyte Absolute 0.03 K/mm3 (0.00-0.031); Immature Granulocyte Percent A 0.7 % (0-0.5); Lymphocytes Percent Auto 34.1 % (18.3-44.2); Mean Corpuscular HGB Conc 33.7 g/dl (32-36); Mean Corpuscular Hemoglobin 32.6 pg (26-34); Mean Corpuscular Volume 96.9 fl (80-100); Mean Platelet Volume 10.2 fl (7.4-10.4); Monocytes Absolute Auto 0.4 K/mm3 (0.1-0.6); Monocytes Percent Auto 9.1 % (2.6-8.5); Neutrophils Absolute Auto 2.3 K/mm3 (1.3-6.7); Neutrophils Percent Auto 52.9 % (45.5-73.1); Platelet Count Result 200 k/mm3 (150-375); Red Blood Count 3.89 M/mm3 (4.2-5.4); Red Cell Distribution Width 12.3 % (11.5-14.5); White Blood Count 4.4 K/mm3 (4.5-10.0)
[2021-04-24 08:38] LABS: Add Urine Microscopic? NO; Appearance Urine Clear (Clear); Bilirubin Urine Negative (Negative); Blood Urine Negative (Negative); Color Urine Yellow (Yellow); Glucose Urine UA Negative (Negative); Ketones Urine Negative (Negative); Leukocyte Esterase Ur Negative LEU/UL (Negative); Nitrate Urine Negative (Negative); Protein Urine Negative (Negative); Specific Grav Ur 1.015 (1.001-1.035); Urobilinogen Urine Negative mg/dL (<2.0)
[2021-04-24 08:47] LABS: Alanine Aminotransferase 16 U/L (4-35); Albumin Level 4.7 g/dL (3.5-5.1); Alkaline Phosphatase 31 U/L (38-126); Anion Gap 9 mmol/L (8-16); Aspartate Amino Transferase 28 U/L (14-36); Bilirubin,Total 0.6 mg/dL (0.2-1.3); Blood Urea Nitrogen 17 mg/dL (7-17); Calcium 8.9 mg/dL (8.4-10.2); Carbon Dioxide 25 mmol/L (22-30); Chloride 105 mmol/L (98-107); Estimated Glomerular Filt Rate > 60; Glucose 109 mg/dL (65-110); Potassium 4.2 mmol/L (3.4-5.0); Sodium 139 mmol/L (137-145)
[2021-04-24 08:53] LABS: Amphetamine Screen Urine Negative (Negative); Barbiturate Screen Urine Negative (Negative); Benzodiazepines Screen Urine Positive (Negative); Cannabinoid Screen Urine Positive (Negative); Cocaine Screen Urine Negative (Negative); Methadone Screen Urine Negative (Negative); Opiate Screen Urine Negative (Negative); Phencyclidine Screen Urine Negative (Negative)
--- NOTE | 2021-04-24 08:53 | ED.GENADULT ---
HPI - General Adult General Chief complaint: Overdose Stated complaint: OD? Time Seen by Provider: 04/24/21 08:01 Source: patient History of Present Illness HPI narrative: Patient is a 20 y/o female complaining of epigastric abdominal pain and vomiting starting last night. She states that her pain is mild and there is no pain radiation. There is no alleviating or exacerbating factor. Of note, she states that she took 1.5 mg of Xanax and someone else's Suboxone. She also had several drinks. She denies any SI or HI. She states that she just tried to relax. Related Data Home Medications Medication Instructions Recorded Confirmed amitriptyline 25 mg 03/25/21 pantoprazole 40 mg PO 03/25/21 venlafaxine 150 mg PO 03/25/21 alprazolam 04/24/21 famotidine 04/24/21 fluoxetine mg 04/24/21 Allergies Allergy/AdvReac Type Severity Reaction Status Date / Time latex Allergy Hives Verified 04/24/21 07:03 Review of Systems Constitutional: Constitutional: Denies chills, Reports fatigue, Denies fever(s), Denies headache(s), Reports malaise and Denies weakness Eyes: Eyes: Denies blurry vision ENT: Denies headache(s) and Denies neck pain Cardiovascular: Cardiovascular: Denies chest pain and Denies dyspnea Respiratory: Respiratory: Denies cough and Denies dyspnea Gastrointestinal: Gastrointestinal: Reports abdominal pain, Denies diarrhea, Reports nausea and Reports vomiting Genitourinary: Genitourinary: Denies hematuria and Denies dysuria Musculoskeletal: Musculoskeletal: Denies back pain and Denies neck pain Neurologic: Denies headache(s) and Denies weakness [facility] Past Medical History Medical History Peptic ulcer disease Surgical History Surgical History No pertinent past surgical history Family History Family History Other Breast cancer Father Hypertension Mother Hypertension Heart attack Social History Social History Smoking packs per day: 0.5 Smoking cigarettes per day: 10.0 Years smoked: 4 Smoking pack-years: 2.00 Smoking status: Former smoker Tobacco type: cigarettes Second hand tobacco smoke exposure: Yes Smoking end date: 07/15/16 Additional smoking assessment comments: currently uses vape Alcohol intake: current Drinks per week: 6 Alcohol use details: 2 drinks a couple times a week Other substance usage details: use vape Spiritual care concerns: No Exam Const: General: no acute distress and well developed Orientation/consciousness: oriented to person, oriented to place, oriented to time and patient oriented x3 HENMT: Head: normocephalic Ears: external ears normal General nose exam: Normal external nose present Eyes: General: appearance normal, both eyes and all related structures Conjunctivae: conjunctivae normal Neck: Neck: normal visual inspection and full ROM Chest: Chest palpation & inspection: normal inspection of the chest and no tenderness Resp: Effort & Inspection: normal respiratory effort Auscultation: clear to auscultation bilaterally Cardio: Rate: regular rate Rhythm: regular rhythm GI: GI Palp: No abdominal tenderness and Yes Soft to palpation Skin: General skin exam: normal color and turgor normal Neuro: General: oriented to person, oriented to place, oriented to time and patient oriented x3 Cognition (Neuro): normal cognition Extrem: General: normal to inspection, full ROM and no pedal edema Psych: Appearance: grossly normal Mental Status: mental status grossly normal Affect: normal affect Course Reevaluation(s) Reevaluation #1: Rechecked. Patient feels better. She is able to tolerate oral intake. Date: 04/24/21 Time: 11:29 Vital Signs Vital signs: Vital Signs Temperature
[2021-04-24 09:00] VITALS: BP 94/70; PULSE 94; RESP 14; O2SAT 100
[2021-04-24] MEDS: ONDANSETRON INJ 4 MG/2 ML VIAL IV PUSH (09:00)
[2021-04-24] MEDS: SODIUM CHLORIDE 0.9% IV 1,000 ML 999 ML IV CONT (09:00)
[2021-04-24 09:04] LABS: Acetaminophen < 10 ug/mL (10-30); Ethanol < 10 mg/dL (<10); Salicylate < 1.0 mg/dL (2-20)
--- NOTE | 2021-04-24 10:00 | PC.NURSE ---
lab notified to add on lipase to blood already in lab
[2021-04-24 10:08] LABS: Lipase 83 U/L (23-300)
[2021-04-24 11:15] VITALS: BP 118/85; PULSE 72; RESP 14; O2SAT 99
[2021-04-24] MEDS: METOCLOPRAMIDE HCL INJ 10 MG/2 ML VIAL IV PUSH (11:15)
[2021-04-24 11:47] VITALS: BP 112/68; PULSE 88; RESP 16; O2SAT 100
== END 2021-04-24 11:47 | disposition home or self-care (01) ==
PROVIDERS: Emergency Provider Emergency Medicine; PCP Family Medicine
DX: F19.10 Other psychoactive substance abuse, uncomplicated (principal); T40.711A Poisoning by cannabis, accidental (unintentional), initial encounter; R11.15 Cyclical vomiting syndrome unrelated to migraine; Z87.11 Personal history of peptic ulcer disease; Z87.891 Personal history of nicotine dependence
CPT/HCPCS: 36415; 80053; 80307; 81003; 81025; 83690; 84443; 85025; 93005; 96361; 96374; 96375; 99284; J2405; J2765; J7030

== ENCOUNTER 2021-06-18 00:19 | Emergency (ER) | payer OTHER, SELFPAY ==
[2021-06-18] VITALS (26 sets, daily range): BP systolic 106–132; BP diastolic 77–96; PULSE 63–92; RESP 13–22; TEMP 36.6–36.7; O2SAT 97–100
--- NOTE | 2021-06-18 00:26 | PC.NURSE ---
Abbi RN at poison control contacted. Patient took approx 60 - 0.25mg xanax approx 2 hours. Per poison control, peak is in 2 hours. 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 They encourage us to provide supportive care for any symptoms.
--- NOTE | 2021-06-18 00:31 | ECG_ITS ---
Measurements Intervals [place] Rate: 86 P: 70 SD: 167 QRS: 85 QRSD: 88 T: 29 QT: 356 QTc: 427 Interpretive Statements SINUS RHYTHM MINIMAL Q WAVES- INFERIOR LEADS BASELINE ARTIFACT- II, III, AVR, AVF, V1-V6 BORDERLINE ECG Electronically Signed On 06-18-2021 7:07:27 WOOD POLISHER by Josh Ambrocio D.O.
--- NOTE | 2021-06-18 00:58 | ED.OVERDOSE ---
HPI - Overdose General Chief Complaint: Overdose <Jai Murillo MD - Last Filed: 06/19/21 07:54> Stated Complaint: SI attempt <Jai Murillo MD - Last Filed: 06/19/21 07:54> Time Seen by Provider: 06/18/21 00:53 <Jai Murillo MD - Last Filed: 06/19/21 07:54> Source: patient <Jai Murillo MD - Last Filed: 06/19/21 07:54> History of Present Illness HPI Narrative: Patient presents for suicide attempt. Patient ports history depression and prior psychiatric admissions. For she is on is alprazolam and only takes it twice daily. Reports she took her usual dose in the morning and the evening however around 10:00 she took additional doses and took anywhere from 30 to 60 tablets from 10 PM to midnight. Friend was concerned and called EMS and patient was brought in for evaluation. She reports she does want to and this is an attempt to kill herself. <Jai Murillo MD - Last Filed: 06/19/21 07:54> Related Data Home Medications: Home Medications Medication Instructions Recorded Confirmed pantoprazole 40 mg PO DAILY 03/25/21 alprazolam 0.25 mg PO BID 04/24/21 famotidine 20 mg PO BID 04/24/21 fluoxetine 40 mg PO DAILY 04/24/21 ondansetron HCl 8 mg PO DAILY 06/18/21 <Jai Murillo MD - Last Filed: 06/19/21 07:54> Allergies/Adverse Reactions: Allergies Allergy/AdvReac Type Severity Reaction Status Date / Time latex Allergy Hives Verified 06/18/21 00:51 <Jai Murillo MD - Last Filed: 06/19/21 07:54> Review of Systems Review of Systems: CONSTITUTIONAL: Denies fever, chills, or sweats. EYES: Denies visual changes, redness, or discharge. ENT: Denies rhinorrhea, congestion, sore throat, or otalgia. CARDIOVASCULAR: Denies chest pain, palpitations, or edema. RESPIRATORY: Denies cough or dyspnea. GASTROINTESTINAL: Denies abdominal pain, vomiting, or diarrhea. GENITOURINARY: Denies dysuria or hematuria. SKIN: Denies rash or itching. MUSCULOSKELETAL: Denies back pain, joint pain, or myalgia. NEUROLOGIC: Denies headache, numbness, dizziness, or weakness. PSYCHIATRIC: Denies anxiety or depression. <Jai Murillo MD - Last Filed: 06/19/21 07:54> PMFSH Past Medical History Medical History: Medical History Peptic ulcer disease <Jai Murillo MD - Last Filed: 06/19/21 07:54> Surgical History Surgical History: Surgical History No pertinent past surgical history <Jai Murillo MD - Last Filed: 06/19/21 07:54> Family History Family History: Family History Other Breast cancer Father Hypertension Mother Hypertension Heart attack <Jai Murillo MD - Last Filed: 06/19/21 07:54> Social History Social History: Social History Smoking packs per day: 0.5 Smoking cigarettes per day: 10.0 Years smoked: 4 Smoking pack-years: 2.00 Smoking status: Former smoker Tobacco type: cigarettes Second hand tobacco smoke exposure: Yes Smoking end date: 07/15/16 Additional smoking assessment comments: currently uses vape Alcohol intake: current Drinks per week: 6 Alcohol use details: 2 drinks a couple times a week Substance use type: marijuana Other substance usage details: use vape Spiritual care concerns: No <Jai Murillo MD - Last Filed: 06/19/21 07:54> Exam Narrative: GENERAL: Well-appearing, well-nourished, and in no acute distress. HEAD: Normocephalic, atraumatic. EYES: PERRLA and EOMI. ENT: Nares clear, no rhinorrhea or epistaxis. Mucous membranes moist. NECK: Supple. No masses. No JVD CHEST: Clear to auscultation. No respiratory distress. No wheezes rales or rhonchi HEART: Regular rate and rhythm. No murmur heard. Normal peripheral pulses. ABDOMEN: Soft, nont
[2021-06-18 01:01] LABS: Basophils Absolute Auto 0.1 K/mm3 (0.0-0.1); Basophils Percent Auto 0.9 % (0.2-1.2); Eosinophils Absolute Auto 0.2 K/mm3 (0-0.3); Eosinophils Percent Auto 2.8 % (0-4.4); Hematocrit 37.2 % (37.0-47.0); Immature Granulocyte Absolute 0.07 K/mm3 (0.00-0.031); Lymphocytes Absolute Auto 2.52 K/mm3 (0.9-3.2); Lymphocytes Percent Auto 36.5 % (18.3-44.2); Mean Corpuscular HGB Conc 34.9 g/dl (32-36); Mean Corpuscular Hemoglobin 33.5 pg (26-34); Mean Corpuscular Volume 95.9 fl (80-100); Monocytes Absolute Auto 0.4 K/mm3 (0.1-0.6); Monocytes Percent Auto 5.5 % (2.6-8.5); Neutrophils Absolute Auto 3.7 K/mm3 (1.3-6.7); Neutrophils Percent Auto 53.3 % (45.5-73.1); Platelet Count Result 227 k/mm3 (150-375); Red Blood Count 3.88 M/mm3 (4.2-5.4); Red Cell Distribution Width 11.9 % (11.5-14.5); White Blood Count 6.9 K/mm3 (4.5-10.0)
[2021-06-18 01:10] LABS: Acetaminophen < 10 ug/mL (10-30); Ethanol 65 mg/dL (<10); Salicylate < 1.0 mg/dL (2-20)
[2021-06-18 01:11] LABS: Add Urine Microscopic? YES; Appearance Urine Cloudy (Clear); Bacteria Urine Trace /hpf; Bilirubin Urine Negative (Negative); Blood Urine Negative (Negative); Color Urine Straw (Yellow); Glucose Urine UA Negative (Negative); Ketones Urine Negative (Negative); Leukocyte Esterase Ur Negative LEU/UL (Negative); Mucus Urine Rare /lpf; Nitrate Urine Negative (Negative); Protein Urine Negative (Negative); Squamous Epithelial Cell Urine Many /hpf (Few); Urobilinogen Urine Negative mg/dL (<2.0); WBC Urine 0-3 /hpf
[2021-06-18 01:11] LABS: Alanine Aminotransferase 18 U/L (4-35); Albumin Level 4.2 g/dL (3.5-5.1); Alkaline Phosphatase 39 U/L (38-126); Anion Gap 13 mmol/L (8-16); Aspartate Amino Transferase 26 U/L (14-36); Bilirubin,Total 0.5 mg/dL (0.2-1.3); Blood Urea Nitrogen 12 mg/dL (7-17); Carbon Dioxide 20 mmol/L (22-30); Chloride 106 mmol/L (98-107); Estimated CRCL calculation 103 ml/min; Estimated Glomerular Filt Rate > 60; Glucose 113 mg/dL (65-110); Potassium 3.5 mmol/L (3.4-5.0); Sodium 139 mmol/L (137-145)
[2021-06-18 01:13] LABS: Specific Grav Ur 1.003 (1.001-1.035)
[2021-06-18] MEDS: ONDANSETRON INJ 4 MG/2 ML VIAL IV PUSH (01:20)
[2021-06-18 01:24] LABS: Amphetamine Screen Urine Negative (Negative); Barbiturate Screen Urine Negative (Negative); Benzodiazepines Screen Urine Positive (Negative); Cannabinoid Screen Urine Negative (Negative); Cocaine Screen Urine Negative (Negative); Methadone Screen Urine Negative (Negative); Opiate Screen Urine Negative (Negative); Phencyclidine Screen Urine Negative (Negative)
--- NOTE | 2021-06-18 02:18 | PC.NURSE ---
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 This RN currently on hold with [facility], as instructed by CRISIS as pt is 20 y/o.
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
--- NOTE | 2021-06-18 04:48 | PC.NURSE ---
Poison Control contacted by this RN to update on pt care. no further instructions/recommendations given.
--- NOTE | 2021-06-18 05:27 | PC.NURSE ---
Pt moved from ED 12 to ED 15.
[2021-06-18 05:39] LABS: EDCOVIDSCREEN Negative (Negative)
--- NOTE | 2021-06-18 06:32 | PC.NURSE ---
Pt now wants to leave. Hates her room and being here. Wants her bed and her cats. Asking this RN if she can just sign out AMA. Per Akira, he is currently working on placement. ED MD notified that pt no longer wants to be admitted, but at present, he does not feel like pt safe to ama or d/c home after taking 60+ alprazolam pills. [facility] called back by this RN, they are paging Akira or other clinician who will return my call.
[2021-06-18] MEDS: FAMOTIDINE 20 MG TABLET PO (10:29)
[2021-06-18] MEDS: FLUoxetine HCL 20 MG CAPSULE 40 MG PO (10:29)
[2021-06-18] MEDS: PANTOPRAZOLE 40 MG TABLET PO (10:29)
--- NOTE | 2021-06-18 11:13 | PC.NURSE ---
Pt called out saying she wants to leave AMA. Pt told that she is currently awaiting placement for an involuntary bed. She states well if i have to stay in the hospital and not work then I cant pay my rent and then i'll definitely want to kill myself. You guys took all my pills so i cant take those.
--- NOTE | 2021-06-18 12:35 | PC.NURSE ---
spoke / october reports someone will be here shortly with the involuntary petition. reports we can fax to [employer] when petition has been obtained.
--- NOTE | 2021-06-18 13:00 | PC.NURSE ---
pt. requesting to be reevaluated by Akira, reports she was barely conscious when she originally spoke w/ him. reports she is now in the right states of mind. Akira at bedside to speak w/ pt.
[2021-06-18] MEDS: NICOTINE (*PBKC) 21 MG PATCH 1 PATCH TRANSDERM (15:59)
[2021-06-18] MEDS: hydrOXYzine pamoate 25 MG CAPSULE 50 MG PO (17:00)
--- NOTE | 2021-06-18 20:00 | PC.NURSE ---
pt in room with sitter at bedside.
[2021-06-19] MEDS: MELATONIN 5 MG TABLET PO (04:57)
[2021-06-19 10:00] VITALS: BP 129/88; PULSE 72; RESP 16; O2SAT 100
--- NOTE | 2021-06-19 10:14 | PC.NURSE ---
bilingual secretary faxed pt file to [employer] @[phone]
[2021-06-19] MEDS: NICOTINE (*PBKC) 21 MG PATCH 1 PATCH TRANSDERM (10:28)
[2021-06-19] MEDS: ALPRAZolam (*CRX) 0.5 MG TABLET PO (10:28)
[2021-06-19] MEDS: ACETAMINOPHEN 325 MG TABLET 650 MG PO (10:45)
--- NOTE | 2021-06-19 10:58 | PC.NURSE ---
leonid made contact with ward secretary. asked to fax [facility] again but a different number @[phone]
[2021-06-19] MEDS: FAMOTIDINE 20 MG TABLET PO (11:09)
[2021-06-19] MEDS: PANTOPRAZOLE 40 MG TABLET PO (11:09)
[2021-06-19] MEDS: ONDANSETRON HCL ODT 4 MG TABLET PO (11:09)
[2021-06-19] MEDS: FLUoxetine HCL 10 MG CAPSULE 40 MG PO (11:10)
--- NOTE | 2021-06-19 12:28 | PCCCNOTE ---
Called to [facility] spoke with intake they do have beds available, Faxed referral to [phone]. Will need rapid covid if accepted. Provided intake with phone number for career development coordinator.
--- NOTE | 2021-06-19 13:32 | PC.NURSE ---
PT STATES SHE WILL NOW GO VOLUNTARY. AWAITING CALL BACK FROM GREGORIO AT [facility] AT [phone]
[2021-06-19] MEDS: NAPROXEN SODIUM 220 MG TABLET PO (15:15)
--- NOTE | 2021-06-19 16:49 | PC.NURSE ---
paralegal legal secretary re-faxed pt file. file was sent at [phone]
[2021-06-19 17:00] VITALS: BP 138/97; PULSE 66; RESP 16; TEMP 36.6; O2SAT 100
[2021-06-19] MEDS: ACETAMINOPHEN 500 MG TABLET 1000 MG PO (17:43)
[2021-06-19] MEDS: hydrOXYzine pamoate 25 MG CAPSULE 50 MG PO ×2 (17:44→22:27)
[2021-06-19 19:11] LABS: SARS-CoV-2 RNA PCR Negative
[2021-06-19 19:35] VITALS: BP 129/88; PULSE 71; RESP 20; O2SAT 100
--- NOTE | 2021-06-19 19:38 | PC.NURSE ---
Assumed care of pt. at this time report from Lola, RN
--- NOTE | 2021-06-19 20:26 | PC.NURSE ---
Pt. accepted at [facility] RN faxed over covid-19 negative results to [phone]. RN to give nurse to nurse report at [phone]. [id number] Report to DEONNA Hummel [address] Dr[address] [place] accepting physician. Mariama jaquez contact [phone]
[2021-06-19 22:30] VITALS: BP 122/88; PULSE 88; RESP 19; O2SAT 97
== END 2021-06-19 22:30 ==
PROVIDERS: Emergency Medicine; General Practice; Emergency Provider Family Medicine; PCP Family Medicine
DX: Z20.822 Contact with and (suspected) exposure to COVID-19 (principal); R45.851 Suicidal ideations
CPT/HCPCS: 36415; 80053; 80307; 81001; 81025; 84443; 85025; 87426; 93005; 96374; 99285; A9270; C9803; J2405; U0003; U0005

== ENCOUNTER 2021-07-07 13:25 | Observation (INO) | payer OTHER, SELFPAY ==
[2021-07-07] VITALS (11 sets, daily range): BP systolic 90–142; BP diastolic 43–84; PULSE 119–148; RESP 11–27; TEMP 36.7–36.9; O2SAT 98–100; BMI 23.1
--- NOTE | 2021-07-07 13:40 | PC.NURSE ---
This RN called poison control and spoke with pharmacist Amrita. Per Amrita she is not worried about Klonopin as this should have peaked sometime last night. With possible Wellbutrin overdose we need to watch for possible seizure, tachycardia, hypokalemia and conduction disturbances. Supportive care is also needed. Labs need to be drawn are : Tylenol, aspirin, urine drug screen, Ethyol level , EKG and registered nurse cardiac telemetry all need to be done. Posision control is sending over information in regards to medications as well.
--- NOTE | 2021-07-07 14:00 | PC.NURSE ---
took over care of patient, asked pt why she took pills she states I just wanted to feel better, feel different, just get through the holidays Pt denies any desire to kill herself.
--- NOTE | 2021-07-07 14:12 | ECG_ITS ---
Measurements Intervals [place] Rate: 132 P: 81 MT: 143 QRS: 78 QRSD: 84 T: 27 QT: 332 QTc: 493 Interpretive Statements SINUS TACHYCARDIA MINIMAL Q WAVES- ANTEROLAT/INF LEADS NONSPECIFIC ST & T-WAVE ABNORMALITY- ANTEROLAT/INF LEADS BASELINE ARTIFACT- I, II, III, AVR, AVL, AVF ABNORMAL ECG Electronically Signed On 07-07-2021 16:58:35 MENTAL HEALTH NURSE by Josh Ambrocio D.O.
--- NOTE | 2021-07-07 14:12 | ED.OVERDOSE ---
HPI - Overdose General Chief Complaint: Overdose Stated Complaint: OD Time Seen by Provider: 07/07/21 13:45 Source: patient Mode of arrival: ambulatory Limitations: altered mental status History of Present Illness HPI Narrative: Patient is a 20-year-old female brought in by EMS secondary to drug overdose. Patient states that she took 60 Klonopin pills last night, 2 Tylenol pills and 2 Suboxone pills. Patient states she took the pills to make her feel good . Patient denies any suicidal ideations. Patient denies any homicidal ideations. Patient was seen here on June 15 due to suicide attempt. Related Data Home Medications Medication Instructions Recorded Confirmed pantoprazole 40 mg PO DAILY 03/25/21 alprazolam 0.25 mg PO BID 04/24/21 famotidine 20 mg PO BID 04/24/21 fluoxetine 40 mg PO DAILY 04/24/21 ondansetron HCl 8 mg PO DAILY 06/18/21 Allergies Allergy/AdvReac Type Severity Reaction Status Date / Time latex Allergy Hives Verified 06/18/21 00:51 Review of Systems Review of Systems: All systems reviewed & are unremarkable except as noted in HPI and below Constitutional: Constitutional: Denies body ache(s), Denies chills, Denies excessive sweating, Denies fatigue, Denies fever(s), Denies headache(s), Denies lethargy, Denies malaise, Denies weakness and Denies weight loss Eyes: Eyes: Denies blurry vision, Denies change in vision and Denies loss of vision ENT: Denies dizziness, Denies ear discharge, Denies headache(s), Denies lip swelling, Denies epistaxis, Denies nasal congestion, Denies neck pain, Denies throat swelling and Denies tongue swelling Cardiovascular: Cardiovascular: Denies chest pain, Denies chest pain at rest, Denies chest pain with activity, Denies diaphoresis, Denies rapid heart rate, Denies edema, Denies irregular heart rhythm, Denies lightheadedness, Denies palpitations, Denies dyspnea and Denies dyspnea on exertion Respiratory: Respiratory: Denies chest congestion, Denies cough, Denies hemoptysis, Denies dyspnea and Denies dyspnea on exertion Gastrointestinal: Gastrointestinal: Denies abdominal pain, Denies melena, Denies hematochezia, Denies diarrhea, Denies nausea, Denies vomiting and Denies hematemesis Musculoskeletal: Musculoskeletal: Denies abnormal gait, Denies deformity, Denies joint swelling, Denies limited range of motion, Denies neck pain and Denies numbness Neurologic: Denies Abnormal speech present, Denies abnormal gait, Denies confusion, Denies dizziness, Denies headache(s), Denies focal weakness, Denies loss of vision, Denies numbness, Denies Other visual disturbances, Denies Sensory deficit (Neuro) and Denies weakness Psychiatric: Psychiatric: Denies confusion, Denies depression, Denies auditory hallucinations, Denies homicidal ideation and Denies suicidal ideation Endocrine: Endocrine: Denies cold intolerance, Denies excessive sweating, Denies fatigue, Denies heat intolerance and Denies palpitations Hematologic/Lymphatic: Hematologic/Lymphatic: Denies easy bleeding and Denies easy bruising Allergic/Immunologic: Allergic/Immunologic: Denies lip swelling, Denies throat swelling and Denies tongue swelling PMFSH Past Medical History Medical History Peptic ulcer disease Surgical History Surgical History No pertinent past surgical history Family History Family History Other Breast cancer Father Hypertension Mother Hypertension Heart attack Social History Social History Smoking packs per day: 0.5 Smoking cigarettes per day: 10.0 Years smoked: 4 Smoking pack-years: 2.00 Smoking status: Former smoker Tobacco type: cigarettes Second hand tobacco smoke exposure: Yes Smoking end date: 07/15/16 Additional smoking assessment comments: liang
[2021-07-07 14:31] LABS: Basophils Absolute Auto 0.1 K/mm3 (0.0-0.1); Basophils Percent Auto 0.9 % (0.2-1.2); Eosinophils Absolute Auto 0.1 K/mm3 (0-0.3); Eosinophils Percent Auto 0.7 % (0-4.4); Hemoglobin 14.2 g/dL (12.0-15.0); Immature Granulocyte Absolute 0.05 K/mm3 (0.00-0.031); Immature Granulocyte Percent A 0.7 % (0-0.5); Lymphocytes Absolute Auto 1.47 K/mm3 (0.9-3.2); Lymphocytes Percent Auto 21.1 % (18.3-44.2); Mean Corpuscular HGB Conc 33.8 g/dl (32-36); Mean Corpuscular Hemoglobin 32.4 pg (26-34); Mean Corpuscular Volume 95.9 fl (80-100); Mean Platelet Volume 10.3 fl (7.4-10.4); Monocytes Absolute Auto 0.6 K/mm3 (0.1-0.6); Monocytes Percent Auto 8.9 % (2.6-8.5); Neutrophils Absolute Auto 4.7 K/mm3 (1.3-6.7); Neutrophils Percent Auto 67.7 % (45.5-73.1); Platelet Count Result 219 k/mm3 (150-375); Red Blood Count 4.38 M/mm3 (4.2-5.4); Red Cell Distribution Width 12.2 % (11.5-14.5)
[2021-07-07 14:42] LABS: Acetaminophen 99 ug/mL (10-30); Ethanol 17 mg/dL (<10); Salicylate < 1.0 mg/dL (2-20)
[2021-07-07 14:44] LABS: Alanine Aminotransferase 22 U/L (4-35); Albumin Level 4.7 g/dL (3.5-5.1); Alkaline Phosphatase 42 U/L (38-126); Anion Gap 13 mmol/L (8-16); Aspartate Amino Transferase 30 U/L (14-36); Bilirubin,Total 1.7 mg/dL (0.2-1.3); Blood Urea Nitrogen 18 mg/dL (7-17); Calcium 8.7 mg/dL (8.4-10.2); Carbon Dioxide 23 mmol/L (22-30); Chloride 99 mmol/L (98-107); Estimated CRCL calculation 103 ml/min; Estimated Glomerular Filt Rate > 60; Glucose 78 mg/dL (65-110); Potassium 3.8 mmol/L (3.4-5.0); Sodium 135 mmol/L (137-145)
--- NOTE | 2021-07-07 16:19 | PCCCNOTE ---
Met with patient bedside, patient is alert and oriented x 3. patients mom is bedside. patient inquired about her Vap Pen . She is under the impression that the staff or paramedics took her vap pen. CC informed her that the ER staff did not have her vap pen. CC asked patient if she felt suicidal or homicidal and patient stated no. patient stated that she took all the pills to chill out. CC will continue to follow for any needs that arise.
--- NOTE | 2021-07-07 16:20 | PC.NURSE ---
Spoke with Poison control. They suggest getting a magnesium level and giving a dose of potassium to keep K and mag levels on the higher side of normal. Recommends repeat EKG at 5pm and to monitor prolonged QRS. If pt had prolong QRS give dose of bicarb. Discussed recommendations with Dr. Gonzalez. new orders placed
[2021-07-07 16:41] LABS: Magnesium 1.9 mg/dL (1.6-2.3)
[2021-07-07] MEDS: POTASSIUM CHLORIDE 20 MEQ PACKET (FOR LIQUID) 40 MEQ PO (16:46)
--- NOTE | 2021-07-07 16:56 | ECG_ITS ---
Measurements Intervals [place] Rate: 131 P: 86 RI: 148 QRS: 81 QRSD: 89 T: 35 QT: 328 QTc: 485 Interpretive Statements SINUS TACHYCARDIA MINIMAL Q WAVES- INFERIOR LEADS BORDERLINE ST-T WAVE ABNORMALITY- INFERIOR LEADS BASELINE ARTIFACT- II, III, AVR, AVL, AVF ABNORMAL ECG Electronically Signed On 07-07-2021 20:08:35 GASKET SUPERVISOR by Josh Ambrocio D.O.
[2021-07-07 17:05] LABS: Amphetamine Screen Urine Negative (Negative); Barbiturate Screen Urine Negative (Negative); Benzodiazepines Screen Urine Positive (Negative); Cannabinoid Screen Urine Negative (Negative); Cocaine Screen Urine Negative (Negative); Methadone Screen Urine Negative (Negative); Opiate Screen Urine Negative (Negative); Phencyclidine Screen Urine Negative (Negative)
--- NOTE | 2021-07-07 17:30 | PM.IMHP ---
H&P: HPI History of Present Illness Date/Time: 07/07/21 17:30 Chief Complaint: Overdose. Narrative: This is a 20-year-old female with history of suicide attempt, anxiety, depression who presented to the emergency department earlier today via EMS from home for evaluation after an overdose. At the time my evaluation she seems to be confused and hallucinating and is difficult to get an accurate history from her. As such a majority of the following is obtained via a review of her electronic medical records as well as discussions with staff and the patient's mother, Radha, at bedside with the patient's permission. The patient has been seen in this emergency department several times in the last few months under similar circumstances and most recently she was transferred to the psychiatric floor at [facility] through the emergency department on 06/18/2021. At that time she apparently had presented with suicidal ideation and the patient's mom tells me that she was only there for a couple of days. The patient has been doing okay at home and has been going to her job though over the last week or so she has become increasingly depressed. Late morning the patient's neighbor noticed that her apartment door was open and the patient did not respond when they called out to her. The neighbor then got in touch with the patient's friend who came and found the patient sitting on the toilet, somnolent and perhaps a bit confused. She had indicated to her friend that she took between 30 and 60 alprazolam, of which she is prescribed 0.25 mg tablets. She also reported taking 10 Tylenol, strength unknown, and possibly to of her friend's Suboxone pills. It is not entirely clear if she took them in attempt to harm herself or not. On EMS arrival she was lethargic and fell asleep quite easily and initially she was pretty calm in the emergency department although she seemed to be hallucinating the time my evaluation as she was picking at things in the air and she is speaking nonsensically and tangentially. She was also tachycardic with heart rates in the 140s to 170s and pupils were markedly dilated. Within about 30 minutes of my evaluation of the patient, she became agitated and violent, requiring chemical sedation with Benadryl, Ativan, and Haldol per the emergency department physician. Her symptoms and appearance were concerning for anticholinergic overdose and on further investigation I noted that she had a prescription filled just today for amitriptyline 25 mg tablets, 30 were dispensed. The patient's mother then went to her apartment indeed found an empty bottle of amitriptyline. She is being admitted to the ICU in this setting for close monitoring. Poison Control has been contacted and we will follow their recommendations. Review of Systems Review of Systems: Unable to obtain accurately given current clinical condition. [facility] Past Medical History Medical History (Updated 07/07/21 @ 22:47 by Betty Whitman PA-C) Anxiety Depression History of suicide attempt Pancreatitis Peptic ulcer disease Polysubstance abuse Surgical History Surgical History (Updated 07/07/21 @ 22:41 by Betty Whitman PA-C) History of esophagogastroduodenoscopy Family History Family History Other Breast cancer Father Hypertension Mother Hypertension Heart attack Social History Social History (Updated 07/07/21 @ 22:42 by Betty Whitman PA-C) Social History: Surrogate decision maker: Radha Donis, mother. Code status: Full code. Smoking packs per day: 0.5 Smoking cigarettes per day: 10.0 Years smoked: 4 Smoking pack-years: 2.00 Smoking status: Former smoker Second hand tobacco smoke exposure: Yes Additional smoking assessment comments: Currently vapes Alcohol intake: current Drinks per week: 8 Alcohol use details: 2 drinks several times a week Substance use type: prescripti
[2021-07-07] MEDS: WATER IVPB (17:57)
[2021-07-07] MEDS: ACETYLCYSTEINE IVPB (17:57)
[2021-07-07] MEDS: DEXTROSE 5% IVPB (17:57)
[2021-07-07] MEDS: SODIUM CHLORIDE 0.9% IV 1,000 ML 999 ML IV CONT (17:58)
--- NOTE | 2021-07-07 17:59 | PC.NURSE ---
Pt beginning to hallucinate.... trying to picker packer things that aren't there, taking to people not there, talking about things that dont make since.
--- NOTE | 2021-07-07 18:00 | PC.NURSE ---
While attempting to give ativan, pt thrashing and rips out forearm IV. unsure if pt recieved any of the Ativan. VORB from Dr. Gonzalez for 2 more mg.
--- NOTE | 2021-07-07 18:00 | PC.NURSE ---
Pt becoming combative with this RN. Pt thrashing, sliding down stretcher, attempting to bite this RN. VORB for 5mg Haldol, 2 mg Ativan, 25 benadryl.
[2021-07-07] MEDS: HALOPERIDOL LACTATE 5 MG/ML VIAL IM (18:14)
[2021-07-07] MEDS: LORazepam INJ (*CRX) 2 MG/ML VIAL IV PUSH ×2 (18:15→18:19)
[2021-07-07] MEDS: diphenhydrAMINE HCl INJ 50 MG/ML VIAL 25 MG IV PUSH (18:15)
--- NOTE | 2021-07-07 19:00 | PC.NURSE ---
This RN made aware that pt had amtryptilline filled today and the bottle was found empty. Called poison control to update. they states pt needs 1-2 meq/kg bolus of bicarb. do not admin haldol, benadryl or dilantin.
--- NOTE | 2021-07-07 19:22 | PC.NURSE ---
pt calm at this time. resting on bed.
--- NOTE | 2021-07-07 21:01 | ADMGEN ---
This patient, Chen Ralph, was admitted to Intensive Care Unit-4 at 2049 on 07/07/2021. Patient/family oriented to hospital policies and general routines including ID bracelet, bed and alarms, visiting hours, pain management, procedures, bathroom and other care routines, personal items, smoking policy, room service/diet, and visiting hours. Information on how to activate the Rapid Response Team has been discussed. Patient/Family are encouraged to report perceived risks to care and to ask questions if they do not understand what they are told or what they should do.
[2021-07-07] MEDS: SODIUM CHLORIDE 0.9% IV 1,000 ML 125 ML IV CONT ×2 (22:22→22:44)
--- NOTE | 2021-07-07 23:00 | ECG_ITS ---
Measurements Intervals [place] Rate: 119 P: 84 FL: 157 QRS: 73 QRSD: 88 T: 48 QT: 433 QTc: 609 Interpretive Statements SINUS TACHYCARDIA LEFT ATRIAL ENLARGEMENT MINIMAL Q WAVES- INFERIOR LEADS BORDERLINE ST-T WAVE ABNORMALITY- ANTEROLAT/INF LEADS BASELINE ARTIFACT- I, II, III, AVR, AVL, AVF ABNORMAL ECG Electronically Signed On 07-08-2021 7:46:49 MOTOR VEHICLE INSPECTOR by Josh Ambrocio D.O.
[2021-07-07 23:48] LABS: Alveolar/Arterial O2 Gradient 8.4 mmHg; Carboxyhemoglobin 0.3 % THb (0-2.0); Fractional Inspired Oxygen 21 %; HCO3 ABG 20.6 mEq/l (22.0-26.0); Methemoglobin ABG 0.3 %THb (0-1.5); Oxygen Content ABG 17.3 %vol (16.0-22.0); Oxygen Saturation ABG 97.3 % (95.0-100.0); PCO2 ABG 36.2 mmHg (35.0-45.0); PO2 FiO2 Ratio Arterial Blood 4.67 %; Reduced Hemoglobin 3.4 %THb (0-5.0); Total Hemoglobin 12.7 g/dL (12.0-18.0); pH ABG 7.373 (7.350-7.450)
[2021-07-07 23:49] LABS: Device ROOM AIR; Modified Allen's Test Pass; Site Drawn LEFT RADIAL
[2021-07-08] VITALS (12 sets, daily range): BP systolic 106–129; BP diastolic 56–79; PULSE 75–116; RESP 13–18; TEMP 36.3–37.3; O2SAT 97–100
[2021-07-08] MEDS: SODIUM BICARBONATE 8.4% 50 MEQ/50 ML SYRINGE 100 MEQ IV PUSH (00:10)
[2021-07-08 00:15] LABS: Anion Gap 12 mmol/L (8-16); Blood Urea Nitrogen 9 mg/dL (7-17); Calcium 8.2 mg/dL (8.4-10.2); Carbon Dioxide 18 mmol/L (22-30); Chloride 103 mmol/L (98-107); Estimated CRCL calculation 103 ml/min; Estimated Glomerular Filt Rate > 60; Glucose 86 mg/dL (65-110); Potassium 3.5 mmol/L (3.4-5.0); Sodium 133 mmol/L (137-145)
[2021-07-08] MEDS: POTASSIUM CHLORIDE 20 MEQ PACKET (FOR LIQUID) PO (01:50)
[2021-07-08 04:29] LABS: Hematocrit 35.6 % (37.0-47.0); Mean Corpuscular HGB Conc 33.7 g/dl (32-36); Mean Corpuscular Hemoglobin 32.5 pg (26-34); Mean Corpuscular Volume 96.5 fl (80-100); Platelet Count Result 177 k/mm3 (150-375); Red Blood Count 3.69 M/mm3 (4.2-5.4); Red Cell Distribution Width 12.2 % (11.5-14.5); White Blood Count 8.9 K/mm3 (4.5-10.0)
[2021-07-08 04:42] LABS: Acetaminophen < 10 ug/mL (10-30)
[2021-07-08 04:44] LABS: Alanine Aminotransferase 21 U/L (4-35); Albumin Level 3.7 g/dL (3.5-5.1); Alkaline Phosphatase 31 U/L (38-126); Anion Gap 7 mmol/L (8-16); Aspartate Amino Transferase 44 U/L (14-36); Bilirubin,Total 0.8 mg/dL (0.2-1.3); Blood Urea Nitrogen 5 mg/dL (7-17); Calcium 8.1 mg/dL (8.4-10.2); Carbon Dioxide 24 mmol/L (22-30); Chloride 106 mmol/L (98-107); Estimated CRCL calculation 103 ml/min; Estimated Glomerular Filt Rate > 60; Glucose 104 mg/dL (65-110); Phosphorus 2.2 mg/dL (2.5-4.5); Potassium 3.4 mmol/L (3.4-5.0); Sodium 137 mmol/L (137-145)
[2021-07-08] MEDS: SODIUM CHLORIDE 0.9% IV 1,000 ML 125 ML IV CONT ×2 (06:42→15:29)
[2021-07-08] MEDS: LACTATED RINGERS 1,000 ML 999 ML IV CONT (08:30)
[2021-07-08] MEDS: POTASSIUM CHLORIDE 20 MEQ TABLET 40 MEQ PO (08:30)
[2021-07-08] MEDS: ARTIFICIAL TEARS OPHTH SOLN 15 ML BOTTLE 1 DROP EACH EYE (11:08)
--- NOTE | 2021-07-08 11:48 | WPDCNINT ---
Assessment and Plan Assessment and plan (1) Intentional drug overdose: Qualifiers: Encounter type: initial encounter Qualified Code(s): T50.902A - Poisoning by unspecified drugs, medicaments and biological substances, intentional self-harm, initial encounter Code(s): T50.902A - Poisoning by unspecified drugs, medicaments and biological substances, intentional self-harm, initial encounter Status: Acute Assessment and Plan: Patient ingested amitriptyline, Tylenol, clonazepam. -poison control has been in contact, -patient completed N-acetylcysteine, received bicarb for tricyclic overdose -patient was being monitored for QT prolongation, tremors were noted which is a side effect amitriptyline -patient is awake, alert, oriented, nonfocal -hemodynamically stable (2) Suicidal behavior: Code(s): R45.89 - Other symptoms and signs involving emotional state Status: Acute Assessment and Plan: Patient denied suicidal behavior. Patient states she took all these medications to relax. -she stated she did a much to take, so she took so many pills. I did tell her that the dose on the bottle is what she should be taking. (3) Anxiety: Code(s): F41.9 - Anxiety disorder, unspecified Status: Acute Assessment and Plan: Will hold anxiety medications at this time (4) Depression: Code(s): F32.9 - Major depressive disorder, single episode, unspecified Status: Acute Assessment and Plan: Will hold meds Additional Plan Care coordination and crisis management to evaluate Code status: Full code Critical care time spent: 41 minutes This dictation may have been done utilizing a voice recognition system. Attempts have been made to correct errors. However, there may be uncorrected grammatical, spelling, and recognition errors present. Due to a high probability of clinically significant, life threatening deterioration, the patient required my highest level of preparedness to intervene emergently and I personally spent this critical care time directly and personally managing the patient. This critical care time included obtaining a history; examining the patient; pulse oximetry; ordering and review of studies; arranging urgent treatment with development of a management plan; evaluation of patient's response to treatment; frequent reassessment; and discussions with other providers. It was exclusive of separately billable procedures and treating other patients and teaching time. Please see Assessment and Plan section and the rest of the note for further information on patient assessment and treatment Cylinder Machine Operator Pulp Drier Consult Note Consult date: 07/08/21 Time Seen: 07:02 Reason for consult: Alprazolam, amitriptyline and Tylenol overdose HPI: Chen Ralph is a 20 year old female with past medical history of anxiety, depression, history of suicide attempt, pancreatitis, peptic ulcer disease, polysubstance abuse presented the ED with drug overdose. According the patient she took around Klonopin times 60 pills, Tylenol time 10 pills, Suboxone x2 pills. According the ER patient she took these pills to relax her with sleep well but she has denied any suicidal attempt or wanting to harm herself. Patient recently here and 06/15/2021 for suicidal attempt and was transferred to [facility] sent to the psychiatry floor which she was there for around 2 days. The mother also found an empty bottle of amitriptyline 25 mg times 30 tablets which was filled on 07/07/2021. Poison Control was notified, patient was started on N-Acetyl cysteine, given 2 amps of bicarbonate in the ICU. She received 1 L IV fluids and was started on maintenance IV fluids. Her initial Tylenol levels are 99, repeat this morning was <10. Urine drug screen was positive for benzodiazepines. Patient was admitted to the ICU for further management Patient seen and examined the ICU, states she took all those medication jus
[2021-07-08 12:05] LABS: Acetaminophen < 10 ug/mL (10-30); Alanine Aminotransferase 19 U/L (4-35); Albumin Level 3.1 g/dL (3.5-5.1); Alkaline Phosphatase 29 U/L (38-126); Anion Gap 6 mmol/L (8-16); Aspartate Amino Transferase 42 U/L (14-36); Bilirubin,Total 0.5 mg/dL (0.2-1.3); Blood Urea Nitrogen 2 mg/dL (7-17); Calcium 8.2 mg/dL (8.4-10.2); Carbon Dioxide 23 mmol/L (22-30); Chloride 109 mmol/L (98-107); Estimated CRCL calculation 103 ml/min; Estimated Glomerular Filt Rate > 60; Glucose 91 mg/dL (65-110); Potassium 3.7 mmol/L (3.4-5.0); Sodium 138 mmol/L (137-145)
--- NOTE | 2021-07-08 12:54 | PM.IMPN ---
Progress Note: A&P Assessment and Plan (1) Intentional drug overdose: Qualifiers: Encounter type: initial encounter Qualified Code(s): T50.902A - Poisoning by unspecified drugs, medicaments and biological substances, intentional self-harm, initial encounter Code(s): T50.902A - Poisoning by unspecified drugs, medicaments and biological substances, intentional self-harm, initial encounter Status: Acute (2) Overdose of tricyclic antidepressants: Code(s): T43.011A - Poisoning by tricyclic antidepressants, accidental (unintentional), initial encounter Status: Acute (3) Acetaminophen overdose: Code(s): T39.1X1A - Poisoning by 4-Aminophenol derivatives, accidental (unintentional), initial encounter Status: Acute (4) Benzodiazepine overdose: Code(s): T42.4X1A - Poisoning by benzodiazepines, accidental (unintentional), initial encounter Status: Acute (5) Suicide attempt: Code(s): T14.91XA - Suicide attempt, initial encounter Status: Acute (6) Depression: Code(s): F32.9 - Major depressive disorder, single episode, unspecified Status: Acute (7) Anxiety: Code(s): F41.9 - Anxiety disorder, unspecified Status: Acute Additional Plan Drug overdose with multiple different medication clonazepam Tylenol amitriptyline QT prolongation noted will recheck today to ensure improvement. Acetaminophen overdose received NS status cystine infusion LFTs been normal recheck labs in morning Accidental versus suicidal overdose. She has underlying psychosocial risk factors along with history of suicide attempts in the past. Will have crisis team see her once medically cleared. Anxiety disorder/major depressive disorder recurrent episode follow psychiatrist regularly Prolong QT Acute drug-induced delirium currently improving Continue on suicide precautions Recheck labs in the morning May move out of the ICU Subjective Date/time seen: 07/08/21 12:54 Interval history: HPI:This is a 20-year-old female with history of suicide attempt, anxiety, depression who presented to the emergency department earlier today via EMS from home for evaluation after an overdose. At the time my evaluation she seems to be confused and hallucinating and is difficult to get an accurate history from her. As such a majority of the following is obtained via a review of her electronic medical records as well as discussions with staff and the patient's mother, Radha, at bedside with the patient's permission. The patient has been seen in this emergency department several times in the last few months under similar circumstances and most recently she was transferred to the psychiatric floor at [facility] through the emergency department on 06/18/2021. At that time she apparently had presented with suicidal ideation and the patient's mom tells me that she was only there for a couple of days. The patient has been doing okay at home and has been going to her job though over the last week or so she has become increasingly depressed. Late morning the patient's neighbor noticed that her apartment door was open and the patient did not respond when they called out to her. The neighbor then got in touch with the patient's friend who came and found the patient sitting on the toilet, somnolent and perhaps a bit confused. She had indicated to her friend that she took between 30 and 60 alprazolam, of which she is prescribed 0.25 mg tablets. She also reported taking 10 Tylenol, strength unknown, and possibly to of her friend's Suboxone pills. It is not entirely clear if she took them in attempt to harm herself or not. On EMS arrival she was lethargic and fell asleep quite easily and initially she was pretty calm in the emergency department although she seemed to be hallucinating the time my evaluation as she was picking at things in the air and she is speaking nonsensically and tangentially. She was also tachycardic
--- NOTE | 2021-07-08 13:14 | ECG_ITS ---
Measurements Intervals [place] Rate: 83 P: 42 MD: 151 QRS: 72 QRSD: 82 T: 33 QT: 364 QTc: 428 Interpretive Statements SINUS RHYTHM MINIMAL Q WAVES- INFERIOR LEADS NONSPECIFIC T-WAVE ABNORMALITY- ANTERIOR LEADS BORDERLINE ECG Electronically Signed On 07-08-2021 14:41:24 BUMPER OPERATOR by Josh Ambrocio D.O.
--- NOTE | 2021-07-08 14:39 | PC.NURSE ---
Patient moved from ICU-4 to 333 via bed at 1410. Telemetry monitoring in place. All hazardous materials removed from room. Sitter at bedside. Patient alert and oriented x4 and drowsy. Denies any pains or discomfort when asked. Step mom made aware of room move. Video monitoring in place.
[2021-07-08] MEDS: NICOTINE (*PBKC) 14 MG PATCH 1 PATCH TRANSDERM (16:13)
[2021-07-08] MEDS: KETOROLAC 10 MG TABLET PO (18:43)
[2021-07-08] MEDS: LORazepam INJ (*CRX) 2 MG/ML VIAL 1 MG IV PUSH (18:48)
[2021-07-08] MEDS: ACETAMINOPHEN 325 MG TABLET 650 MG PO (23:58)
[2021-07-09] VITALS (9 sets, daily range): BP systolic 109–123; BP diastolic 55–77; PULSE 75–86; RESP 14–19; TEMP 36.4–37.2; O2SAT 98–100
[2021-07-09 06:24] LABS: Basophils Percent Auto 0.5 % (0.2-1.2); Eosinophils Absolute Auto 0.2 K/mm3 (0-0.3); Eosinophils Percent Auto 2.9 % (0-4.4); Hematocrit 36.3 % (37.0-47.0); Hemoglobin 12.1 g/dL (12.0-15.0); Immature Granulocyte Absolute 0.03 K/mm3 (0.00-0.031); Immature Granulocyte Percent A 0.5 % (0-0.5); Lymphocytes Absolute Auto 1.64 K/mm3 (0.9-3.2); Lymphocytes Percent Auto 29.5 % (18.3-44.2); Mean Corpuscular HGB Conc 33.3 g/dl (32-36); Mean Corpuscular Hemoglobin 31.8 pg (26-34); Mean Corpuscular Volume 95.5 fl (80-100); Mean Platelet Volume 10.6 fl (7.4-10.4); Monocytes Absolute Auto 0.5 K/mm3 (0.1-0.6); Monocytes Percent Auto 9.2 % (2.6-8.5); Neutrophils Absolute Auto 3.2 K/mm3 (1.3-6.7); Neutrophils Percent Auto 57.4 % (45.5-73.1); Platelet Count Result 168 k/mm3 (150-375); Red Cell Distribution Width 12.2 % (11.5-14.5); White Blood Count 5.6 K/mm3 (4.5-10.0)
[2021-07-09 06:44] LABS: Alanine Aminotransferase 21 U/L (4-35); Albumin Level 3.7 g/dL (3.5-5.1); Alkaline Phosphatase 36 U/L (38-126); Anion Gap 9 mmol/L (8-16); Aspartate Amino Transferase 44 U/L (14-36); Bilirubin,Total 0.5 mg/dL (0.2-1.3); Blood Urea Nitrogen 3 mg/dL (7-17); Calcium 8.9 mg/dL (8.4-10.2); Carbon Dioxide 23 mmol/L (22-30); Chloride 106 mmol/L (98-107); Estimated CRCL calculation 118 ml/min; Estimated Glomerular Filt Rate > 60; Glucose 99 mg/dL (65-110); Magnesium 1.8 mg/dL (1.6-2.3); Potassium 3.5 mmol/L (3.4-5.0); Sodium 138 mmol/L (137-145)
[2021-07-09] MEDS: NICOTINE (*PBKC) 14 MG PATCH 1 PATCH TRANSDERM (09:40)
--- NOTE | 2021-07-09 13:27 | PM.DS ---
DS: Admitting Diagnosis Discharge Date 07/09/21 Admitting Diagnosis Poly drug overdose DS: Discharge Diagnosis Discharge Diagnosis (1) Intentional drug overdose: Qualifiers: Encounter type: initial encounter Qualified Code(s): T50.902A - Poisoning by unspecified drugs, medicaments and biological substances, intentional self-harm, initial encounter Code(s): T50.902A - Poisoning by unspecified drugs, medicaments and biological substances, intentional self-harm, initial encounter Status: Acute Assessment and Plan: Patient ingested amitriptyline, Tylenol, clonazepam. -poison control has been in contact, -patient completed N-acetylcysteine, received bicarb for tricyclic overdose -patient was being monitored for QT prolongation, tremors were noted which is a side effect amitriptyline. EKG monitored for QT prolongation treated with bicarbonate back to normal by the time of discharge. -patient is awake, alert, oriented, nonfocal -hemodynamically stable (2) Suicidal behavior: Code(s): R45.89 - Other symptoms and signs involving emotional state Status: Acute Assessment and Plan: Patient denied suicidal behavior. Patient states she took all these medications to relax. she stated she did not now how much to take, so she took so many pills. She was counseled that dose on the bottle is what she should be taking. Crisis team evaluated and cleared her for discharge (3) Anxiety: Code(s): F41.9 - Anxiety disorder, unspecified Status: Acute Assessment and Plan: Will hold anxiety medications on admission Further resumption of her benzodiazepine after consultation with a psychiatrist She was also counseled to not take more than what is prescribed (4) Depression: Code(s): F32.9 - Major depressive disorder, single episode, unspecified Status: Acute Assessment and Plan: Resume home medication at discharge Counseled not to take more than what is prescribed. She verbalizes understanding. DS: Summary Hospital Course Hospital Course: See above Time Spent with Patient Time attestation: Total time spent providing and/or coordinating discharge services: 45 minutes Exam Narrative: General: Well-developed female common cooperative HEENT: Normocephalic, atraumatic. Respiratory: Lungs are clear to auscultation bilaterally. No respiratory distress Cardiovascular: Regular rate and rhythm no murmur rubs or gallops Gastrointestinal: Abdomen is soft, nontender, and nondistended with positive bowel sounds. Skin: Warm and dry. No rash or lesions on limited exam. Extremities: No cyanosis, clubbing, or edema. Radial and pedal pulses intact. Neurological: Alert and oriented x3 no focal motor deficits. Psychiatric: Calm and cooperative DS: Data Data Completed and Pending Labs on day of discharge: Labs from last 24 hours 07/09/21 07/09/21 05:11 05:11 WBC 5.6 RBC 3.80 L Hgb 12.1 Hct 36.3 L MCV 95.5 MCH 31.8 MCHC 33.3 RDW 12.2 Plt Count 168 MPV 10.6 H Immature Gran % (Auto) 0.5 Neut % (Auto) 57.4 Lymph % (Auto) 29.5 [place] % (Auto) 9.2 H Eos % (Auto) 2.9 Baso % (Auto) 0.5 Lymph # (Auto) 1.64 [place] # (Auto) 0.5 Eos # (Auto) 0.2 Baso # (Auto) 0.0 Abs Immat Gran (auto) 0.03 Absolute Neuts (auto) 3.2 Absolute Nucleated RBC 0.0 Nucleated RBC % 0.0 Sodium 138 Potassium 3.5 Chloride 106 Carbon Dioxide 23 Anion Gap 9 BUN 3 L Creatinine 0.60 L Estim Creat Clear Calc 118 Estimated GFR > 60 Glucose 99 Calcium 8.9 Magnesium 1.8 Total Bilirubin 0.5 AST 44 H ALT 21 Alkaline Phosphatase 36 L Total Protein 6.0 L Albumin 3.7 Discharge Plan Discharge Attending physician on discharge: Jourdan Hdez Consulting providers: Kae Loepz Discharging Clinician: Jourdan Hdez Anticipated Discharge Date/Time: 07/09/21 13:24 Patient Disposition: Home
--- NOTE | 2021-07-09 14:41 | PM.IMPN ---
Progress Note: A&P Assessment and Plan (1) Intentional drug overdose: Qualifiers: Encounter type: initial encounter Qualified Code(s): T50.902A - Poisoning by unspecified drugs, medicaments and biological substances, intentional self-harm, initial encounter Code(s): T50.902A - Poisoning by unspecified drugs, medicaments and biological substances, intentional self-harm, initial encounter Status: Acute Assessment and Plan: Patient ingested amitriptyline, Tylenol, clonazepam. -poison control has been in contact, -patient completed N-acetylcysteine, received bicarb for tricyclic overdose -patient was being monitored for QT prolongation, tremors were noted which is a side effect amitriptyline. EKG monitored for QT prolongation treated with bicarbonate back to normal . -patient is awake, alert, oriented, nonfocal -hemodynamically stable medically stable for discharge from medical standpoint. further treatment from psych team to be pursued. (2) Suicidal behavior: Code(s): R45.89 - Other symptoms and signs involving emotional state Status: Acute Assessment and Plan: Patient denied suicidal behavior. Patient states she took all these medications to relax. she stated she did not now how much to take, so she took so many pills. She was counseled that dose on the bottle is what she should be taking. Crisis team evaluated and suggest inpatient. will make arrangement as needed (3) Anxiety: Code(s): F41.9 - Anxiety disorder, unspecified Status: Acute Assessment and Plan: Will hold anxiety medications on admission Further resumption of her benzodiazepine after consultation with a psychiatrist She was also counseled to not take more than what is prescribed (4) Depression: Code(s): F32.9 - Major depressive disorder, single episode, unspecified Status: Acute Assessment and Plan: further treamtent per psych Counseled not to take more than what is prescribed. She verbalizes understanding. Subjective Date/time seen: 07/09/21 14:41 Interval history: HPI:This is a 20-year-old female with history of suicide attempt, anxiety, depression who presented to the emergency department earlier today via EMS from home for evaluation after an overdose. At the time my evaluation she seems to be confused and hallucinating and is difficult to get an accurate history from her. As such a majority of the following is obtained via a review of her electronic medical records as well as discussions with staff and the patient's mother, Radha, at bedside with the patient's permission. The patient has been seen in this emergency department several times in the last few months under similar circumstances and most recently she was transferred to the psychiatric floor at [facility] through the emergency department on 06/18/2021. At that time she apparently had presented with suicidal ideation and the patient's mom tells me that she was only there for a couple of days. The patient has been doing okay at home and has been going to her job though over the last week or so she has become increasingly depressed. Late morning the patient's neighbor noticed that her apartment door was open and the patient did not respond when they called out to her. The neighbor then got in touch with the patient's friend who came and found the patient sitting on the toilet, somnolent and perhaps a bit confused. She had indicated to her friend that she took between 30 and 60 alprazolam, of which she is prescribed 0.25 mg tablets. She also reported taking 10 Tylenol, strength unknown, and possibly to of her friend's Suboxone pills. It is not entirely clear if she took them in attempt to harm herself or not. On EMS arrival she was lethargic and fell asleep quite easily and initially she was pretty calm in the emergency department although she seemed to be hallucinating the time my evaluation as she was picking at things
[2021-07-09 15:25] LABS: EDCOVIDSCREEN Negative (Negative)
[2021-07-09] MEDS: LORazepam INJ (*CRX) 2 MG/ML VIAL 1 MG IV PUSH ×2 (16:19→22:56)
[2021-07-09 18:41] LABS: Pregnancy On Board Control Positive; Urine Pregnancy Test Negative
[2021-07-09] MEDS: MELATONIN 5 MG TABLET 10 MG PO (23:52)
[2021-07-10 05:51] VITALS: BP 116/66; PULSE 74; RESP 16; TEMP 36.6; O2SAT 97
--- NOTE | 2021-07-10 08:11 | PM.IMPN ---
Progress Note: A&P Assessment and Plan (1) Intentional drug overdose: Qualifiers: Encounter type: initial encounter Qualified Code(s): T50.902A - Poisoning by unspecified drugs, medicaments and biological substances, intentional self-harm, initial encounter Code(s): T50.902A - Poisoning by unspecified drugs, medicaments and biological substances, intentional self-harm, initial encounter Status: Acute Assessment and Plan: Patient ingested amitriptyline, Tylenol, clonazepam. -poison control has been in contact, -patient completed N-acetylcysteine, received bicarb for tricyclic overdose -patient was being monitored for QT prolongation, tremors were noted which is a side effect amitriptyline. EKG monitored for QT prolongation treated with bicarbonate back to normal . -patient is awake, alert, oriented, nonfocal -hemodynamically stable medically stable for discharge from medical standpoint. further treatment from psych team to be pursued. Planned inpatient psychiatry treatment, awaiting placement (2) Suicidal behavior: Code(s): R45.89 - Other symptoms and signs involving emotional state Status: Acute Assessment and Plan: Patient denied suicidal behavior. Patient states she took all these medications to relax. she stated she did not now how much to take, so she took so many pills. She was counseled that dose on the bottle is what she should be taking. Crisis team evaluated and suggest inpatient. Awaiting placement (3) Anxiety: Code(s): F41.9 - Anxiety disorder, unspecified Status: Acute Assessment and Plan: Will hold anxiety medications on admission Further resumption of her benzodiazepine after consultation with a psychiatrist She was also counseled to not take more than what is prescribed (4) Depression: Code(s): F32.9 - Major depressive disorder, single episode, unspecified Status: Acute Assessment and Plan: further treamtent per psych Counseled not to take more than what is prescribed. She verbalizes understanding. Subjective Date/time seen: 07/10/21 08:11 Interval history: HPI:This is a 20-year-old female with history of suicide attempt, anxiety, depression who presented to the emergency department earlier today via EMS from home for evaluation after an overdose. At the time my evaluation she seems to be confused and hallucinating and is difficult to get an accurate history from her. As such a majority of the following is obtained via a review of her electronic medical records as well as discussions with staff and the patient's mother, Radha, at bedside with the patient's permission. The patient has been seen in this emergency department several times in the last few months under similar circumstances and most recently she was transferred to the psychiatric floor at [facility] through the emergency department on 06/18/2021. At that time she apparently had presented with suicidal ideation and the patient's mom tells me that she was only there for a couple of days. The patient has been doing okay at home and has been going to her job though over the last week or so she has become increasingly depressed. Late morning the patient's neighbor noticed that her apartment door was open and the patient did not respond when they called out to her. The neighbor then got in touch with the patient's friend who came and found the patient sitting on the toilet, somnolent and perhaps a bit confused. She had indicated to her friend that she took between 30 and 60 alprazolam, of which she is prescribed 0.25 mg tablets. She also reported taking 10 Tylenol, strength unknown, and possibly to of her friend's Suboxone pills. It is not entirely clear if she took them in attempt to harm herself or not. On EMS arrival she was lethargic and fell asleep quite easily and initially she was pretty calm in the emergency department although she seemed to be hallucinating the t
[2021-07-10] MEDS: NICOTINE (*PBKC) 14 MG PATCH 1 PATCH TRANSDERM (09:03)
[2021-07-10] MEDS: LORazepam INJ (*CRX) 2 MG/ML VIAL 1 MG IV PUSH ×2 (09:03→15:25)
--- NOTE | 2021-07-10 11:00 | PM.DS ---
DS: Admitting Diagnosis Discharge Date 07/10/21 Admitting Diagnosis multiple drug overdose DS: Discharge Diagnosis Discharge Diagnosis (1) Intentional drug overdose: Qualifiers: Encounter type: initial encounter Qualified Code(s): T50.902A - Poisoning by unspecified drugs, medicaments and biological substances, intentional self-harm, initial encounter Code(s): T50.902A - Poisoning by unspecified drugs, medicaments and biological substances, intentional self-harm, initial encounter Status: Acute Assessment and Plan: Patient ingested amitriptyline, Tylenol, clonazepam. -poison control has been in contact, -patient completed N-acetylcysteine, received bicarb for tricyclic overdose -patient was being monitored for QT prolongation, tremors were noted which is a side effect amitriptyline. EKG monitored for QT prolongation treated with bicarbonate back to normal . -patient is awake, alert, oriented, nonfocal -hemodynamically stable medically stable for discharge from medical standpoint. further treatment from psych team to be pursued. Planned inpatient psychiatry treatment, transferred to psych facility (2) Suicidal behavior: Code(s): R45.89 - Other symptoms and signs involving emotional state Status: Acute Assessment and Plan: Patient denied suicidal behavior. Patient states she took all these medications to relax. she stated she did not now how much to take, so she took so many pills. She was counseled that dose on the bottle is what she should be taking. Crisis team evaluated and suggest inpatient. transferred to psych facility (3) Anxiety: Code(s): F41.9 - Anxiety disorder, unspecified Status: Acute Assessment and Plan: Will hold anxiety medications on admission Further resumption of her benzodiazepine after consultation with a psychiatrist She was also counseled to not take more than what is prescribed (4) Depression: Code(s): F32.9 - Major depressive disorder, single episode, unspecified Status: Acute Assessment and Plan: further treamtent per psych Counseled not to take more than what is prescribed. She verbalizes understanding. DS: Summary Hospital Course Hospital Course: see above Time Spent with Patient Time attestation: Total time spent providing and/or coordinating discharge services:40 mins Exam Narrative: General: Well-developed female common cooperative HEENT: Normocephalic, atraumatic. Respiratory: Lungs are clear to auscultation bilaterally. No respiratory distress Cardiovascular: Regular rate and rhythm no murmur rubs or gallops Gastrointestinal: Abdomen is soft, nontender, and nondistended with positive bowel sounds. Skin: Warm and dry. No rash or lesions on limited exam. Extremities: No cyanosis, clubbing, or edema. Radial and pedal pulses intact. Neurological: Alert and oriented x3 no focal motor deficits. Psychiatric: Calm and cooperative DS: Data Data Completed and Pending Labs on day of discharge: Labs from last 24 hours 07/09/21 17:48 SARS-CoV-2 RNA (RT-PCR) Negative Discharge Plan Discharge Attending physician on discharge: Jourdan Hdez Consulting providers: Kae Lopez Discharging Clinician: Jourdan Hdez Anticipated Discharge Date/Time: 07/09/21 13:24 Patient Disposition: Other Activity: as tolerated Diet: regular Discharge Instructions: Follow-up with your psychiatrist for continued treatment your anxiety and depression Patient Instructions: Antibiotic Form, Pain Management (DC) Stand Alone Forms: General Discharge Information Follow-up/Referrals: Mane,[place] MD [Primary Care Provider] - 1 Week Discharge Medications: Continued famotidine 20 mg tablet 20 mg PO BID RF: 0 fluoxetine 20 mg capsule 40 mg PO DAILY RF: 0 bupropion HCl 150 mg tablet sustained-release 12 hr 150 mg PO DAILY RF: 0 clonazepam 0.
[2021-07-10 14:00] VITALS: BP 104/73; PULSE 82; RESP 16; TEMP 36.7; O2SAT 100
[2021-07-10 19:04] LABS: SARS-CoV-2 RNA PCR Negative
== END 2021-07-10 15:35 ==
LOC: ANHED 19:02 → ANH3MEDSUR 07-09 04:50 → ANHICU 07-12 14:06
PROVIDERS: Internal Medicine; Physician Assistant; Admitting Provider Internal Medicine; Emergency Provider Emergency Medicine; PCP Family Medicine; Visit Provider Internal Medicine
DX: T43.012A Poisoning by tricyclic antidepressants, intentional self-harm, initial encounter (principal); F41.8 Other specified anxiety disorders; F17.290 Nicotine dependence, other tobacco product, uncomplicated; Z20.822 Contact with and (suspected) exposure to COVID-19
CPT/HCPCS: 36415; 36600; 80048; 80053; 80307; 81025; 82375; 82805; 83050; 83735; 84100; 84443; 85025; 85027; 87086; 87426; 93005; 96361; 96365; 96372; 96374; 96375; 96376; 99285; A9270; C9803; G0378; G0379; J0132; J1200; J1630; J2060; J7030; J7060; J7070; J7120; U0003; U0005

== ENCOUNTER 2021-07-30 22:01 | Emergency (ER) | payer OTHER, SELFPAY ==
[2021-07-30 22:05] VITALS: BP 141/87; PULSE 110; RESP 24; TEMP 36.4; O2SAT 100
--- NOTE | 2021-07-31 00:10 | PC.NURSE ---
no answer at triage
== END 2021-07-31 03:59 | disposition left against medical advice (07) ==
PROVIDERS: PCP Family Medicine
DX: R10.10 Upper abdominal pain, unspecified (principal)
CPT/HCPCS: 99199

== ENCOUNTER 2021-08-29 09:47 | Emergency (ER) | payer OTHER, SELFPAY ==
[2021-08-29 10:10] VITALS: BP 126/88; PULSE 75; RESP 19; TEMP 36.8; O2SAT 100
[2021-08-29 10:26] LABS: Basophils Percent Auto 0.4 % (0.2-1.2); Eosinophils Absolute Auto 0.1 K/mm3 (0-0.3); Eosinophils Percent Auto 1.1 % (0-4.4); Hematocrit 39.5 % (37.0-47.0); Hemoglobin 13.5 g/dL (12.0-15.0); Immature Granulocyte Absolute 0.04 K/mm3 (0.00-0.031); Immature Granulocyte Percent A 0.4 % (0-0.5); Lymphocytes Percent Auto 16.1 % (18.3-44.2); Mean Corpuscular HGB Conc 34.2 g/dl (32-36); Mean Corpuscular Hemoglobin 32.5 pg (26-34); Mean Platelet Volume 10.1 fl (7.4-10.4); Monocytes Absolute Auto 0.6 K/mm3 (0.1-0.6); Platelet Count Result 234 k/mm3 (150-375); Red Blood Count 4.16 M/mm3 (4.2-5.4); Red Cell Distribution Width 12.4 % (11.5-14.5); White Blood Count 10.6 K/mm3 (4.5-10.0)
--- NOTE | 2021-08-29 10:26 | ED.FEMALEGU ---
HPI - Female Genitourinary General Chief complaint: Urogenital-Female Stated complaint: uti, abd pain Time Seen by Provider: 08/29/21 09:55 Source: patient Mode of arrival: ambulatory Limitations: no limitations History of Present Illness HPI Narrative: This is a 20-year-old female that presents to the emergency department for dysuria noted since last night. Associated with lower abdominal discomfort and frequency. Does report possible concern for STDs. Denies fever or vomiting. Related Data Home Medications Medication Instructions Recorded Confirmed famotidine 20 mg PO BID 04/24/21 07/08/21 fluoxetine 40 mg PO DAILY 04/24/21 07/08/21 ondansetron HCl 8 mg PO DAILY 06/18/21 07/08/21 amitriptyline 25 mg PO DAILY 07/08/21 07/08/21 bupropion HCl 150 mg PO DAILY 07/08/21 07/08/21 clonazepam 0.5 mg PO DAILY 07/08/21 07/08/21 Allergies Allergy/AdvReac Type Severity Reaction Status Date / Time fluoxetine Allergy Unknown Verified 07/30/21 22:11 latex Allergy Hives Verified 07/30/21 22:10 Review of Systems Review of Systems: CONSTITUTIONAL: Denies fever GASTROINTESTINAL: Reports abdominal pain. Denies nausea, vomiting GENITOURINARY: Reports dysuria. Denies hematuria. All systems reviewed & are unremarkable except as noted in HPI and below PMFSH Past Medical History Medical History (Updated 08/29/21 @ 13:03 by Elise Morin PA-C) Anxiety Depression History of suicide attempt Pancreatitis Peptic ulcer disease Polysubstance abuse Surgical History Surgical History (Updated 07/07/21 @ 22:41 by Betty Whitman PA-C) History of esophagogastroduodenoscopy Family History Family History Other Breast cancer Father Hypertension Mother Hypertension Heart attack Social History Social History (Updated 07/07/21 @ 22:42 by Betty Whitman PA-C) Social History: Surrogate decision maker: Radha Donis, mother. Code status: Full code. Smoking packs per day: 0.5 Smoking cigarettes per day: 10.0 Years smoked: 4 Smoking pack-years: 2.00 Smoking status: Former smoker Second hand tobacco smoke exposure: Yes Additional smoking assessment comments: Currently vapes Alcohol intake: current Drinks per week: 8 Alcohol use details: 2 drinks several times a week Substance use type: prescription drug Additional living arrangements comments: The patient lives in her own apartment in [place]. Additional occupation/education comments: Works for [employer]. Exam Narrative: GENERAL: Well-appearing, well-nourished, and in no acute distress. HEAD: Normocephalic, atraumatic. EYES: EOMI. CHEST: Clear to auscultation. No respiratory distress. No wheezes rales or rhonchi HEART: Regular rate and rhythm. No murmur heard. Normal peripheral pulses. ABDOMEN: Soft, nontender, nondistended, normal active bowel sounds. No CVA tenderness EXTREMITIES: Normal range of motion. No edema. SKIN: Warm, dry, no rash. NEURO: No focal deficits. Alert and oriented x3. PSYCH: Normal mood and affect Course Vital Signs Vital signs: Vital Signs Temperature 98.3 F 08/29/21 10:10 Pulse Rate 75 08/29/21 10:10 Respiratory Rate 19 08/29/21 10:10 Blood Pressure 126/88 08/29/21 10:10 Pulse Oximetry 100 08/29/21 10:10 Temperature 98.3 F 08/29/21 10:10 Pulse Rate 69 08/29/21 11:56 Respiratory Rate 15 08/29/21 11:56 Blood Pressure 123/80 08/29/21 11:56 Pulse Oximetry 100 08/29/21 10:10 MDM - Female Genitourinary MDM Narrative Medical decision making narrative: Patient presents to the emergency department for symptoms of UTI present since last night. She is afebrile and nontoxic-appearing. Abdominal exam is benign. No CVA tenderness noted. CBC with mild leukocytosis to 10.6. Metabolic panel and lipase without concerning findings. UA is with evidence of infection. This will be sent for culture. Bedside t
[2021-08-29 10:32] LABS: Alanine Aminotransferase 20 U/L (4-35); Albumin Level 4.7 g/dL (3.5-5.1); Alkaline Phosphatase 38 U/L (38-126); Anion Gap 11 mmol/L (8-16); Aspartate Amino Transferase 26 U/L (14-36); Bilirubin,Total 0.7 mg/dL (0.2-1.3); Blood Urea Nitrogen 13 mg/dL (7-17); Calcium 9.4 mg/dL (8.4-10.2); Carbon Dioxide 22 mmol/L (22-30); Chloride 106 mmol/L (98-107); Estimated CRCL calculation 94 ml/min; Estimated Glomerular Filt Rate > 60; Glucose 115 mg/dL (65-110); Lipase 67 U/L (23-300); Potassium 3.7 mmol/L (3.4-5.0); Sodium 139 mmol/L (137-145)
[2021-08-29 10:35] LABS: Add Urine Microscopic? YES; Appearance Urine Cloudy (Clear); Bacteria Urine Trace /hpf; Bilirubin Urine Negative (Negative); Blood Urine 2+ (Negative); Color Urine Straw (Yellow); Glucose Urine UA Negative (Negative); Ketones Urine Negative (Negative); Leukocyte Esterase Ur 3+ LEU/UL (Negative); Mucus Urine Rare /lpf; Nitrate Urine Negative (Negative); Protein Urine Negative (Negative); Specific Grav Ur 1.009 (1.001-1.035); Squamous Epithelial Cell Urine Few /hpf (Few); Urobilinogen Urine Negative mg/dL (<2.0); WBC Urine >75 /hpf
[2021-08-29 11:56] VITALS: BP 123/80; PULSE 69; RESP 15
[2021-08-29] MEDS: CEFDINIR 300 MG CAPSULE PO (12:26)
== END 2021-08-29 13:15 | disposition home or self-care (01) ==
PROVIDERS: Physician Assistant; Emergency Provider Emergency Medicine; PCP Family Medicine
DX: N30.00 Acute cystitis without hematuria (principal); F41.9 Anxiety disorder, unspecified; F32.A Depression, unspecified; Z87.11 Personal history of peptic ulcer disease; F17.290 Nicotine dependence, other tobacco product, uncomplicated
CPT/HCPCS: 36415; 80053; 81001; 81025; 83690; 85025; 87070; 87077; 87086; 87088; 87186; 87491; 87591; 87808; 99284; A9270

== ENCOUNTER 2023-04-02 10:10 | Outpatient (CLI) | payer OTHER, SELFPAY ==
--- NOTE | 2023-04-02 11:30 | NEURO_ITS ---
Impression: # Non-diabetic complains of numbness of hands. # No Carpal Tunnel Syndrome or ulnar neuropathy. # Normal needle/EMG. # Clinical correlation recommended. Nerve Conduction Studies Anti Sensory Summary Table Stim Site NR Peak (ms) P-T Amp (?V) Site1 Site2 Delta-P (ms) Dist (cm) Deshawn (m/s) Left Median Anti Sensory (2-3nd Digit) Wrist 2.7 102.5 Wrist 2-3nd Digit 2.7 14.0 52 Wrist 2.6 102.0 Wrist 2-3nd Digit 2.7 14.0 52 Right Median Anti Sensory (2-3nd Digit) Wrist 2.6 107.8 Wrist 2-3nd Digit 2.6 14.0 54 Wrist 2.4 136.0 Wrist 2-3nd Digit 2.6 14.0 54 Left Radial Anti Sensory (Base 1st Digit) Wrist 1.7 65.8 Wrist Base 1st Digit 1.7 0.0 Right Radial Anti Sensory (Base 1st Digit) Wrist 2.6 27.9 Wrist Base 1st Digit 2.6 0.0 Left Ulnar Anti Sensory (5th Digit) Wrist 2.6 89.5 Wrist 5th Digit 2.6 14.0 54 Right Ulnar Anti Sensory (5th Digit) Wrist 2.5 81.1 Wrist 5th Digit 2.5 14.0 56 Motor Summary Table Stim Site NR Onset (ms) O-P Amp (mV) Site1 Site2 Delta-0 (ms) Dist (cm) Deshawn (m/s) Left Median Motor (Abd Poll Brev) Wrist 2.5 5.8 Elbow Wrist 4.8 29.0 60 Elbow 7.3 5.5 Right Median Motor (Abd Poll Brev) Wrist 2.4 12.7 Elbow Wrist 4.6 26.0 57 Elbow 7.0 11.2 Left Ulnar Motor (Abd Dig Minimi) Wrist 2.6 7.8 A Elbow Wrist 4.9 29.0 59 A Elbow 7.5 7.0 Right Ulnar Motor (Abd Dig Minimi) Wrist 2.3 8.7 A Elbow Wrist 5.2 30.0 58 A Elbow 7.5 8.0 F Wave Studies NR F-Lat (ms) L-R F-Lat (ms) Left Median (Mrkrs) (Abd Poll Brev) 25.68 0.64 Right Median (Mrkrs) (Abd Poll Brev) 26.33 0.64 Left Ulnar (Mrkrs) (Abd Dig Min) 27.72 0.37 Right Ulnar (Mrkrs) (Abd Dig Min) 27.34 0.37 EMG Side Muscle Nerve Root Ins Act Fibs Amp Dur Recrt Comment Right 1stDorInt Ulnar C8-T1 Nml Nml Nml Nml Nml Right Ext Indicis Radial (Post Int) C7-8 Nml Nml Nml Nml Nml Right Ext Digitorum Radial (Post Int) C7-8 Nml Nml Nml Nml Nml Right BrachioRad Radial C5-6 Nml Nml Nml Nml Nml Right PronatorTeres Median C6-7 Nml Nml Nml Nml Nml Right Abd Poll Brev Median C8-T1 Nml Nml Nml Nml Nml Left 1stDorInt Ulnar C8-T1 Nml Nml Nml Nml Nml Left Ext Indicis Radial (Post Int) C7-8 Nml Nml Nml Nml Nml Left Ext Digitorum Radial (Post Int) C7-8 Nml Nml Nml Nml Nml Left BrachioRad Radial C5-6 Nml Nml Nml Nml Nml Left PronatorTeres Median C6-7 Nml Nml Nml Nml Nml Left Abd Poll Brev Median C8-T1 Nml Nml Nml Nml Nml MTDD
== END 2023-04-02 10:11 | disposition home or self-care (01) ==
LOC: ANHNEURO 10:11
PROVIDERS: PCP Family Medicine; Visit Provider Family Medicine
DX: R20.2 Paresthesia of skin (principal)
CPT/HCPCS: 95886; 95911

== ENCOUNTER 2024-07-20 12:49 | Outpatient (CLI) | payer OTHER, SELFPAY ==
--- NOTE | ~2024-07-20 | US_ITS ---
EXAMINATION: US OB <=14 wk fetus w TV DATE: 07/20/2024 13:53 INDICATION: Gestational dating TECHNIQUE: Real-time transabdominal and transvaginal obstetric ultrasound. FINDINGS: No prior studies for comparison. The uterus measures 8 x 4.7 x 7 cm. There is an intrauterine gestational sac, with pole identif ied. The crown rump length measures 1.92 cm, which correlates with a estimated gestational age of 8 weeks 3 days. heart tones are identified measuring 170 BPM. There is a small subchorionic hem orrhage measuring 1.5 x 0.9 x 0.6 cm. There is a corpus luteal cyst measuring 2.1 cm. There is trace fluid near the cervix. IMPRESSION: 1. SL IUP with an EGA of 8 weeks, 3 days (EDC by current ultrasound of 02/26/2025). 2: Corpus luteal cyst of the left ovary measuring 2.1 cm. 3: Small subchorionic hemorrhage. Reviewed, dictated and finalized at location B. TER PNEUMATIC IMPRESSION: 1. SL IUP with an EGA of 8 weeks, 3 days (EDC by current ultrasound of ). 2: Corpus luteal cyst of the left ovary measuring 2.1 cm. 3: Small subchorionic hemorrhage.
== END 2024-07-20 12:50 | disposition home or self-care (01) ==
PROVIDERS: PCP Family Medicine; Visit Provider Student in an Organized Health Care Education/Training Program
DX: Z36.87 Encounter for antenatal screening for uncertain dates (principal); O34.80 Maternal care for other abnormalities of pelvic organs, unspecified trimester; N83.202 Unspecified ovarian cyst, left side; O46.8X9 Other antepartum hemorrhage, unspecified trimester; Z3A.00 Weeks of gestation of pregnancy not specified
CPT/HCPCS: 76801; 76817

== ENCOUNTER 2024-07-27 14:03 | Outpatient (CLI) | payer OTHER, SELFPAY | END 2024-07-27 14:04 | disposition home or self-care (01) | LOC: ANHLAB 14:08 | PROVIDERS: PCP Physician Assistant; Visit Provider Student in an Organized Health Care Education/Training Program | DX: F41.9 Anxiety disorder, unspecified (principal) | CPT/HCPCS: 36415; 84443 ==

== ENCOUNTER 2024-07-30 09:32 | Emergency (ER) | payer OTHER, SELFPAY ==
[2024-07-30 09:39] VITALS: BP 133/80; PULSE 95; RESP 16; TEMP 36.4; O2SAT 100
[2024-07-30 09:41] VITALS: O2SAT 100
--- NOTE | 2024-07-30 09:54 | ED_ITS ---
HPI - General Adult General Chief complaint: Unspecified Stated complaint: MULTIPLE C/O Time Seen by Provider: 07/30/24 09:34 History of Present Illness HPI narrative: Patient is a 23-year-old female who presents to the ER with complaints of nausea vomiting, headache, dizziness, shakiness. She reports she is approximately 10 weeks . This is her 2nd with the 1st ending in early termination. Patient has a history of migraines, GERD, anxiety. She reports her most concerning symptom is shakiness and reports she was sent home from work today because of it. Patient last saw her OBGYN 3 days ago for similar symptoms. She endorses intermittent back pain, and upper abdominal pain intermittently. Patient also reports her headache is currently a 4/10. Her last menstrual period was May 21. Patient denies any shortness of breath, palpitations, vaginal bleeding, lower abdominal pain, or recent fevers. Related Data Home Medications ?Medication ?Instructions ?Recorded ?Confirmed ?Last Taken ?Type vits no.126-ferrous fum tablet PO 07/16/24 07/16/24 Unknown History 28 mg iron-folic acid 800 mcg tablet (Classic ) Allergies Allergy/AdvReac Type Severity Reaction Status Date / Time fluoxetine Allergy Mild Other Verified 07/30/24 09:33 latex Allergy Hives Verified 07/30/24 09:33 Review of Systems 2 Review of Systems: All systems reviewed & are unremarkable except as noted in HPI and below PMFSH Past Medical History Medical History Suppression of menses Pancreatitis Polysubstance abuse History of suicide attempt Anxiety Depression Peptic ulcer disease Surgical History Surgical History History of esophagogastroduodenoscopy Family History Family History Other Breast cancer Father Hypertension Mother Hypertension Heart attack Social History Social History Smoking packs per day: 0.5 Smoking cigarettes per day: 10.0 Years smoked: 4 Smoking pack-years: 2.00 Smoking status: Former smoker Second hand tobacco smoke exposure: Yes Additional smoking assessment comments: Currently vapes Alcohol intake: former Substance use: former Substance use type: prescription drug Do You Feel Safe in your Home?: Yes Lack of Transportation: No Lack of Food: Never True Current Housing: I Have Housing Concerned About Future Housing: No Difficulty Paying Gas/Electric Bills: No Difficulty Paying for Meds: No Currently Unemployed: No Education: Associate Degree Difficulty w/ Childcare or Family Care: No Living arrangements: with family 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 HEAD: Normocephalic, atraumatic. NECK: Supple. No adenopathy, no masses. RESPIRATORY: Airway patent, respirations nonlabored. Clear to auscultation bilaterally, no rales, rhonchi, wheezing. CARDIOVASCULAR: Regular rate and rhythm without murmurs, rubs, or gallops. Peripheral pulses 2+ and equal bilaterally. ABDOMINAL: Soft, nontender, nondistended, no hepatosplenomegaly. Normoactive BS. MUSCULOSKELETAL: Moves all extremities. Strength/ROM intact without gross deformities. SKIN: Warm, dry, normal color. No rashes. NEURO: A&O X3. Speech clear. Cranial nerves II-XII grossly intact. Steady gait. No ataxic movements. PSYCHIATRIC: Appropriate mood and affect. Normal interaction. Course Vital Signs Vital signs: Vital Signs Temperature 36.4 C 07/30/24 09:39 Pulse Rate 95 07/30/24 09:39 Respiratory Rate 07/30/24 09:39 Blood Pressure 133/80 07/30/24 09:39 Pulse Oximetry 100 07/30/24 09:39 Oxygen Delivery Room Air 07/30/24 09:39 Temperature 36.4 C 07/30/24 09:39 Pulse Rate 95 07/30/24 09:39 Respiratory Rate 07/30/24 09:39 Blood Pressure 133/80 07/30/24 09:39 Pulse Oximetry 100 07/30/24 09:39 Oxygen Delivery Room Air 07/30/24 09:39 Medical Decision Making MDM Narrative Medical decision making narrative: Patient is a 23-year-old female who presents to the ER with complaints of nausea vomiting, headache, dizziness, shakiness. She reports she is approximately 10 weeks . This is her 2nd with the 1st ending in early termination. Patient has a history of migraines, GERD, anxiety. She reports her most concerning symptom is shakiness and reports she was sent home from work today because of it. Patient last saw her OBGYN 3 days ago for similar symptoms. She endorses intermittent back pain, and upper abdominal pain intermittently. Patient also reports her headache is currently a 4/10. Her last menstrual period was May 21. Patient denies any shortness of breath, palpitations, vaginal bleeding, lower abdominal pain, or recent fevers. Labs Ordered: CBC, CMP, lipase, beta HCG quant, COVID/flu/RSV swab Imaging Ordered: None necessary Medications Ordered: Normal saline 1 L bolus, Reglan 10 mg IV, Benadryl 25 mg IV Diagnosis: Mild dehydration, anxiety Consults: None necessary Patient Education/Shared MDM: 1145-Results shared with patient. She reports feeling better after IV bolus, Reglan, Benadryl. Patient is inquiring as to when she can be discharged home. Suggested patient ambulate to see if her symptoms return. She is in agreement with plan. Disposition/Plan: Patient ambulated around the ER with no increasing symptoms. Extensive education provided added to patient and her mother regarding the variable, but normal symptoms that can be associated with in increased hCG levels. She was strongly advised to follow-up with her OBGYN as soon as possible. Patient was also strongly advised to try to maintain a 3 L p.o. water intake each day. She and her mother verbalized understanding and are in agreement with plan. Vital signs stable at time of discharge. All questions answered. Differential Diagnosis Differential Diagnosis: UTI, dehydration, COVID/influenza Vital Signs Vital Signs: Vital Signs Temperature 36.4 C 07/30/24 09:39 Pulse Rate 95 07/30/24 09:39 Respiratory Rate 16 07/30/24 09:39 Blood Pressure 133/80 07/30/24 09:39 Pulse Oximetry 100 07/30/24 09:39 Oxygen Delivery Room Air 07/30/24 09:39 Temperature 36.4 C 07/30/24 09:39 Pulse Rate 95 07/30/24 09:39 Respiratory Rate 16 07/30/24 09:39 Blood Pressure 133/80 07/30/24 09:39 Pulse Oximetry 100 07/30/24 09:39 Oxygen Delivery Room Air 07/30/24 09:39 Lab Data Lab results reviewed: Yes I reviewed the patient's lab results. 07/30/24 10:14 07/30/24 10:14 Labs: Lab Results 07/30/24 07/30/24 Range/Units 10:13 10:14 WBC 7.1 (4.5-10.0) K/mm3 RBC 4.04 L (4.2-5.4) M/mm3 Hgb 12.6 (12.0-15.0) g/dL Hct 36.9 L (37.0-47.0) % MCV 91.3 (80-100) fl MCH 31.2 (26-34) pg MCHC 34.1 (32-36) g/dl RDW 12.5 (11.5-14.5) % Plt Count 199 (150-375) k/mm3 MPV 10.5 H (7.4-10.4) fl Immature Gran % (Auto) 0.6 H (0-0.5) % Neut % (Auto) 69.1 (45.5-73.1) % Lymph % (Auto) 22.8 (18.3-44.2) % [place] % (Auto) 6.0 (2.6-8.5) % Eos % (Auto) 1.1 (0-4.4) % Baso % (Auto) 0.4 (0.2-1.2) % Lymph # (Auto) 1.62 (0.9-3.2) K/mm3 [place] # (Auto) 0.4 (0.1-0.6) K/mm3 Eos # (Auto) 0.1 (0-0.3) K/mm3 Baso # (Auto) 0.0 (0.0-0.1) K/mm3 Abs Immat Gran (auto) 0.04 H (0.00-0.031) K/mm3 Absolute Neuts (auto) 4.9 (1.3-6.7) K/mm3 Absolute Nucleated RBC 0.000 (0.0-0.012) K/mm3 Nucleated RBC % 0.0 (0.0-0.2) % Sodium 136 L (137-145) mmol/L Potassium 4.1 (3.4-5.0) mmol/L Chloride 104 (98-107) mmol/L Carbon Dioxide 26 (22-30) mmol/L Anion Gap 6 (4-12) mmol/L BUN 7 D (7-17) mg/dL Creatinine 0.46 L (0.7-1.0) mg/dL Estim Creat Clear Calc 146 ml/min Estimated GFR > 60 (59 - ) Glucose 81 (65-110) mg/dL Calcium 9.5 (8.4-10.2) mg/dL Total Bilirubin 0.6 (0.2-1.3) mg/dL AST 20 (14-36) U/L ALT 16 (6-35) U/L Alkaline Phosphatase 32 L (38-126) U/L Total Protein 7.0 (6.3-8.2) g/dL Albumin 4.1 (3.5-5.1) g/dL Lipase 79 (23-300) U/L Beta HCG, Quant 49566.00 mIU/ML Urine Color Yellow (Yellow) Urine Appearance Clear (Clear) Urine pH 6.5 (5.0-9.0) Ur Specific [place] 1.005 (1.001-1.035) Urine Protein Negative (Negative) mg/dL Urine Glucose (UA) Negative (Negative) mg/dL Urine Ketones Negative (Negative) mg/dL Ur Blood (Man) Negative (Negative) Urine Nitrate Negative (Negative) Urine Bilirubin Negative (Negative) Urine Urobilinogen 0.2 (<2.0) mg/dL Leukocyte Esterase Rfl Negative (Negative) RONNELL/UL Influenza A (RT-PCR) Negative (Negative) Influenza B (RT-PCR) Negative (Negative) RSV (RT-PCR) Negative (Negative) SARS-CoV-2 RNA (RT-PCR) Negative (Negative) Discharge Plan Discharge Clinical Impression: Dehydration, mild, Anxiety Patient Disposition: Home, Self-Care Condition: Stable Instructions: Antibiotic Form, Dehydration (ED) Additional Instructions: Please return to the ER with an worsening symptoms. Follow-up with primary care provider in the next 2-3 days. Take all medications as prescribed. Patient Language: Macedonian Prescriptions: No Action Classic 28 mg iron- 800 mcg tablet PO ondansetron HCl 4 mg tablet 4 mg PO Q6H PRN (Reason: nausea and vomiting) Qty: 30 1RF Follow-up/Referrals: Roddy,MOE Montes De Oca [Primary Care Provider] - Time of Disposition: 13:22
[2024-07-30] MEDS: SODIUM CHLORIDE 0.9% IV 1,000 ML 999 ML IV CONT (10:17)
[2024-07-30] MEDS: METOCLOPRAMIDE HCL INJ 10 MG/2 ML VIAL IV PUSH (10:17)
[2024-07-30] MEDS: diphenhydrAMINE HCl INJ 50 MG/ML VIAL 25 MG IV PUSH (10:17)
[2024-07-30 10:21] LABS: Basophils Percent Auto 0.4 % (0.2-1.2); Eosinophils Absolute Auto 0.1 K/mm3 (0-0.3); Eosinophils Percent Auto 1.1 % (0-4.4); Hematocrit 36.9 % (37.0-47.0); Hemoglobin 12.6 g/dL (12.0-15.0); Immature Granulocyte Absolute 0.04 K/mm3 (0.00-0.031); Immature Granulocyte Percent A 0.6 % (0-0.5); Lymphocytes Absolute Auto 1.62 K/mm3 (0.9-3.2); Lymphocytes Percent Auto 22.8 % (18.3-44.2); Mean Corpuscular HGB Conc 34.1 g/dl (32-36); Mean Corpuscular Hemoglobin 31.2 pg (26-34); Mean Corpuscular Volume 91.3 fl (80-100); Mean Platelet Volume 10.5 fl (7.4-10.4); Monocytes Absolute Auto 0.4 K/mm3 (0.1-0.6); Neutrophils Absolute Auto 4.9 K/mm3 (1.3-6.7); Neutrophils Percent Auto 69.1 % (45.5-73.1); Platelet Count Result 199 k/mm3 (150-375); Red Blood Count 4.04 M/mm3 (4.2-5.4); Red Cell Distribution Width 12.5 % (11.5-14.5); White Blood Count 7.1 K/mm3 (4.5-10.0)
[2024-07-30 10:23] LABS: Add Urine Microscopic? NO; Appearance Urine Clear (Clear); Bilirubin Urine Negative (Negative); Blood Urine Negative (Negative); Color Urine Yellow (Yellow); Glucose Urine UA Negative (Negative); Ketones Urine Negative (Negative); Leukocyte Esterase Ur Negative LEU/UL (Negative); Nitrate Urine Negative (Negative); Protein Urine Negative (Negative); Specific Grav Ur 1.005 (1.001-1.035); Urobilinogen Urine 0.2 mg/dL (<2.0); pH Urine 6.5 (5.0-9.0)
[2024-07-30 10:34] LABS: Alanine Aminotransferase 16 U/L (6-35); Albumin Level 4.1 g/dL (3.5-5.1); Alkaline Phosphatase 32 U/L (38-126); Anion Gap 6 mmol/L (4-12); Aspartate Amino Transferase 20 U/L (14-36); Bilirubin,Total 0.6 mg/dL (0.2-1.3); Blood Urea Nitrogen 7 mg/dL (7-17); Calcium 9.5 mg/dL (8.4-10.2); Carbon Dioxide 26 mmol/L (22-30); Chloride 104 mmol/L (98-107); Estimated CRCL calculation 146 ml/min; Estimated Glomerular Filt Rate > 60; Glucose 81 mg/dL (65-110); Lipase 79 U/L (23-300); Potassium 4.1 mmol/L (3.4-5.0); Sodium 136 mmol/L (137-145)
[2024-07-30 10:58] LABS: Influenza A QL RT-PCR Negative (Negative); Influenza B QL RT-PCR Negative (Negative); RSV RNA, RT-PCR Negative (Negative); SARS-CoV-2 RNA PCR Negative (Negative)
[2024-07-30 11:00] VITALS: O2SAT 100
== END 2024-07-30 13:41 | disposition home or self-care (01) ==
PROVIDERS: Emergency Provider Registered Nurse; PCP Physician Assistant
DX: O99.281 Endocrine, nutritional and metabolic diseases complicating pregnancy, first trimester (principal); E86.0 Dehydration; O99.341 Other mental disorders complicating pregnancy, first trimester; F41.9 Anxiety disorder, unspecified; F32.A Depression, unspecified; Z20.822 Contact with and (suspected) exposure to COVID-19; O99.611 Diseases of the digestive system complicating pregnancy, first trimester; K21.9 Gastro-esophageal reflux disease without esophagitis; O99.331 Smoking (tobacco) complicating pregnancy, first trimester; F17.290 Nicotine dependence, other tobacco product, uncomplicated; Z3A.10 10 weeks gestation of pregnancy; Z87.11 Personal history of peptic ulcer disease
CPT/HCPCS: 36415; 80053; 81003; 83690; 84702; 85025; 87637; 96374; 96375; 99284; J1200; J2765; J7030

== ENCOUNTER 2024-10-20 15:02 | Outpatient (CLI) | payer OTHER, SELFPAY ==
--- NOTE | ~2024-10-20 | US_ITS ---
EXAMINATION: US OB /maternal detail DATE: 10/21/2024 8:18 CDT INDICATION: Anatomy scan TECHNIQUE: Real-time transabdominal obstetric ultrasound. FINDINGS: 2 para 0 There is a single intrauterine gestation in variable presentation. The placenta is posterior. The tip of the placenta covers the cervix, with approximately 1.5 - 2 cm o f overlap (best visualized on cine view). The cervix measures 3.1cm in length. cardiac activity and movement is noted with a heart rate of 136 beats per minute. The deepest vertical pocket of amniotic fluid measures 4.2 cm Anatomic parameters are as follows The bladder is visualized and is unremarkable. A three-vessel cord is present. Cord insertion is demonstrated to be on the midline. Bilateral kidneys are present without hydronephrosis. The anterior and posterior margin of the diaphragm is continuous. The cervical and lumbar spines are covered in their entirety. The thoracic spine does not demonstrate continuous coverage on the submitted images. choroid plexi are visualized, and unremarkable. Lateral ventricles are visualized and are unremarkable. The falx is visualized and is unremarkable. The cerebellum is visualized measuring 20.4 mm, and is sonographically unremarkable. The cisterna magna measures 4.6 mm in anterior to posterior dimension (normal measurement is 2 to 10 mm). Dedicated evaluation of the nuchal fold is not present on the submitted images. Cine of the four-chamber heart is visualized and is anatomic. Both the right and left ventricular outflow tracts are identified and are anatomic. Limited views of the arms, hands, legs and feet were performed and appear grossly unremarkable. The upper lip and nose demonstrate continuity on the submitted images. The following biometric data were obtained: Biparietal diameter (BPD): 5.3 cm; head circumference (HC): 19.7 cm; abdominal circumference (AC): 17.6 cm; femur length (FL): 3.8 cm. These measurements are concordant. Estimated weight is 493 g +/- 74 g, which correlates with the 82nd percentile when 02/22/2025 is used as estimated date of delivery. As single measurements, these parameters are each equal to the following estimated gestational ages: BPD: 22 weeks 0 days. HC: 21 weeks 6 days. AC: 22 weeks 4 days. FL: 22 weeks 1 day. estimated gestational age based solely on measurements from this exam is 22 weeks 1 day +/- 1 w crow 4 days. IMPRESSION: Single intrauterine gestation with an approximate gestational age of 22 weeks and 1 day. Estimated du e date by ultrasound is 02/22/2025. The placenta is posterior and the tip appears to cover the cervix with an overlap ranging from 1 to 2 cm (on the submitted images) for which short-term follow-up is recommended. The thoracic spine does not demonstrate continuous coverage on the submitted images, likely artifa ctual for which follow-up imaging is recommended for confirmation. Dedicated evaluation of the nuchal fold is not present on the submitted images, for which follow-u p dedicated imaging is recommended. Remainder of anatomy scan is unremarkable, as detailed above. Reviewed, dictated and finalized at location A. IMPRESSION: Single intrauterine gestation with an approximate gestational age of 22 weeks a nd 1 day. Estimated due date by ultrasound is 02/22/2025. The placenta is posterior and the tip appears to cover the cervix with an overl ap ranging from 1 to 2 cm (on the submitted images) for which short-term follow -up is recommended. The thoracic spine does not demonstrate continuous coverage on the submitted images, likely artifactual for which follow-up imaging is recommended for conf irmation. Dedicated evaluation of the nuchal fold is not present on the submitted imag es, for which follow-up dedicated imaging is recommended. Remainder of anatomy scan is unremarkable, as detailed above.
--- OUTSIDE RECORDS SUMMARY | 2024-10-20 16:29 | XMS_ITS | Clinical Summary ---
Author Organization [facility] Address [address] [place] [address] Care Team Providers Care Steam Setter Name Role Phone Mike Ugarte MD Unavailable [phone] Mike Ugarte MD Primary Care Provider Jessica Recinos PT Unavailable Unavailable Pineda, Isabel Johnston AUTOMATED WEAVER Unavailable [phone] Brandi Lambert PT Unavailable Unavailab le Allergies Active Allergy Reactions Criticality Noted Date Comments Sumatriptan Hives Medium 12/02/2022 Medications azithromycin (ZITHROMAX) 250 mg tabletIndication s:Upper respiratory tract infection, unspecified type Take two tabs first day, then one tab daily x 4 days 6 tablet 4 Active Additional Information Patient not taking.Reported on 08/10/2024 albuterol HFA (PROVENTIL HFA,VENTOLIN HFA,PROAIR HFA) 90 mcg/actuation inhalerIndicatio ns:Upper respiratory tract infection, unspecified type Inhale 2 puffs every 4 (four) hours as needed for wheezing or shortness of breath 1 each 4 Active ondansetron (ZOFRAN) 4 mg tablet TAKE 1 TABLET BY MOUTH EVERY 6 HOURS NEEDED FOR NAUSEA OR VOMITING 5 Active Active Problems Problem Noted Date Diagnosed Date Acute vaginitis 11/22/2018 Acute cervicitis 01/27/2018 Urinary tract infection in female 12/26/2017 Estimated Date of Delivery Comme nts Yes 02/26/2025 Encounters Date Type Department Care Team Description 08/10/2024 9:00 AM OPERATION SPECIALIST Office Visit [facility] [place] [address] [place] [address] Bettina Guzman, CHAGO Viral URI with cough (Primary Dx) from Last 3 Months Medical History Medical History Date Comments GERD (gastroesophageal reflux disease) Headache Vitamin D deficiency Gastric ulcer Social History Tobacco Use Types Packs/Day Years Used Date Smoking Tobacco: Former Smokeless Tobacco: Never Tobacco Cessation:Counseling Given: Not Answered Alcohol Use Standard Drinks/Week Comments No 0 (1 standard drink = 0.6 oz pur e alcohol) Estimated Date of Delivery Comme nts Yes 02/26/2025 Sex and Gender Information Value Date Recorded Sex Assigned at Not on file Legal Sex Female 6:10 AM OPERATION SPECIALIST Gender Identity Not on file Sexual Orientation Not on file Obstetrics History Para Term AB IAB SAB Ectopic Multiple Livin g Live Births 1 Date Outcome GA Total Labor Labor/2nd/3rd Weight Sex Type Anes PTL Christine A1 A5 Name Clin Current Last Filed Vital Signs Vital Sign Reading Time Taken Comments Blood Pressure 122/72 08/10/2024 8:37 AM OPERATION SPECIALIST Pulse 100 08/10/2024 8:37 AM OPERATION SPECIALIST Temperature 36.9 C (98.5 F) 08/10/2024 8:37 AM OPERATION SPECIALIST Respiratory Rate 19 08/10/2024 8:37 AM OPERATION SPECIALIST Oxygen Saturation 97% 08/10/2024 8:37 AM OPERATION SPECIALIST Inhaled Oxygen Concentration - - Weight 65.6 kg (144 lb 9.6 oz) 08/10/2024 8:37 A M OPERATION SPECIALIST Height 167.6 cm (5' 6 ) 08/10/2024 8:37 AM OPERATION SPECIALIST Body Mass Index 23.34 08/10/2024 8:37 AM OPERATION SPECIALIST Plan of Treatment Health Maintenance Due Date Last Done Comments Cervical Cancer Screening 1999 Depression Screening 1999 Hepatitis C Screening 1999 Regular Well Visit/Exam 18-64 12/15/2017 DTaP/Tdap/Td Vaccine (7 - Td or Tdap) 02/23/2021 02/23/2011, 03/01/2004, 03/03/2003, Additional history exists Chlamydia and Gonorrhea (GC/CT) Screening 12/03/2023 12/02/2022, 11/22/2018 Covid-19 Vaccine ( season) 2024 08/17/2020, 07/27/2020 Influenza Vaccine (#1) 2024 , 05/20/2013, 06/03/2012 Hepatitis B Screening Completed 05/01/2001 , 01/13/2000, 1999 Varicella Vaccines Completed 03/13/2007, 11/04/2001 HPV Vaccines Completed 11/26/2013, 12/2012, 06/03/2012 Pneumococcal vaccine <65 Aged Out No longer eligible based on patient's age to complete this topic Procedures Procedure Name Priority Date/Time Associated Diagnosis Comments POC INFLUENZA A/B, COVID-19 ANTIGEN Routine 08/10/2024 8:57 AM OPERATION SPECIALIST Viral URI with cough POCT RAPID STREP Routine 08/10/2024 8:51 AM OPERATION SPECIALIST Viral URI with cough N. GONORRHOEAE/C. TRACHOMATIS AMPLIFICATION Routine 12/02/2022 10:26 AM CDT Vaginal burning from Last 3 Months or Most Recently Relevant to Health Maintenance Results * POC Influenza A/B, COVID-19 antigen (08/10/2024 8:57 AM OPERATION SPECIALIST) [facility] Influenza A Ag, POC Negative Negative [facility] Influenza B Ag, POC Negative Negative [facility] COVID-19 Ag POC Presumptive Negative Presumptive Negative, Invalid [facility] Nasal 08/10/2024 8:57 AM OPERATION SPECIALIST us Bettina Guzman NP POINT OF CARE TEST ORDERABLES Fi nal Result [facility] [address] [place] [address], [facility] * POCT rapid strep A (08/10/2024 8:51 AM OPERATION SPECIALIST) Rapid Strep A, POC Negative Negative Swab 08/10/2024 8:51 AM OPERATION SPECIALIST Bettina Guzman NP POINT OF CARE TEST ORDERABLES Fi nal Result * N. gonorrhoeae/C. trachomatis Amplification Urine (12/02/2022 10:26 AM CDT) C. trachomatis Not detected Not detected MICHAEL LEE N. gonorrhoeae Not detected Not detected MICHAEL LEE Comment: Testing performed by the [facility]. This assay detects Chlamydia trachomatis and Neisseria gonorrhoeae by nucleic acid amplification testing (NAAT). This test is approved by the [place] Food and Drug Administration and the performance characteristics have been verified by the laboratory. The performance characteristics of this test have not been evaluated in women or individuals less than 16 years of age. Urine (None) 12/02/2022 10:2 6 AM CDT 12/03/2022 8:43 AM CDT Bettina Guzman NP LAB MICROBIOLOGY - GENERAL ORDER KATHERINE Final Result MICHAEL LEE [id number] Department [place] [address] from Last 3 Months or Most Recently Relevant to Health Maintenance Insurance [facility] MEDICAID [facility] MEDICAID [facility] CHOICE PLUS [facility] MEDICAID [facility] MEDICAID Care Teams Steam Setter Relationship Specialty Start Date End Date Mike Ugarte MD PCP - General 07/26/17 Mike Ugarte MD Pediatrics 07/25/17 Jessica Recinos, PT Physical Therapist Physical Therapy 07/26/17 Isabel Pineda NP [address] [address] Nurse Practitioner Nurse Practitioner 02/05/18 Brandi Lambert, PT Physical Therapist Physical Therapy 02/07/18
--- OUTSIDE RECORDS SUMMARY | 2024-10-20 16:29 | XMS_ITS | Clinical Summary ---
Author Organization [facility] Address [address] [place] [address] Care Team Providers Care Watch Engine Operator Name Role Phone Unavailable Primary Care Provider Unavailabl e Encounters Date Type Department Care Team Description 08/03/2024 Telephone [facility] Family & Internal Medicine [address] [address] Abbi Mon FNP Information from Last 3 Months Social History Tobacco Use Types Packs/Day Years Used Date Smoking Tobacco: Never Assessed Comments Unknown Sex and Gender Information Value Date Recorded Sex Assigned at Not on file Legal Sex Female 11:18 AM FREELANCE INTERPRETER/TRANSLATOR Gender Identity Not on file Sexual Orientation Not on file Plan of Treatment Health Maintenance Due Date Last Done Comments Cervical Cancer Screening Pa p Smear (Age 21 to 29) Every 3 Years 1999 Cervical Cancer Screening 1999 Annual Physical 12/15/2002 HPV Vaccines (1 - 3-dose series) 12/15/2014 Hepatitis C 12/15/2017 DTaP, Tdap and Td Vaccines ( 1 - Tdap) 12/15/2018 Hepatitis B Vaccines (1 of 3 - 19+ 3-dose series) 12/15/2018 COVID-19 Vaccine (2023-2 5 season) 2024 Meningococcal B Vaccine Aged Out No l onger eligible based on patient's age to complete this topic Meningococcal Vaccine Aged Out No duong giorgi eligible based on patient's age to complete this topic Pneumococcal Vaccine: Pediat rics (0 to 5 Years) and At-Risk Patients (6 to 64 Years) Aged Out No longer eligible b ased on patient's age to complete this topic RSV Immunizations Under 20 Months Aged Out No longer eligible based on patient's age to complete this topic
--- OUTSIDE RECORDS SUMMARY | 2024-10-20 16:29 | XMS_ITS | Referral Summary ---
Author Organization [facility] Address [address] [place] [address] Care Team Providers Care Ad Operations Coordinator Name Role Phone Mike Ugarte MD Unavailable [phone] Mike Ugarte MD Primary Care Provider Jessica Recinos PT Unavailable Unavailable Isabel Pineda COBOL MAINFRAME DEVELOPER Unavailable [phone] Brandi Lambert PT Unavailable Unavailab le Encounters Date Type Department Care Team Description 08/10/2024 9:00 AM PRODUCT DEVELOPMENT CHEMIST Office Visit [facility] [place] [address] [place] [id number] Bettina Guzman NP Viral URI with cough (Primary Dx) from Last 3 Months Allergies Active Allergy Reactions Criticality Noted Date Comments Sumatriptan Hives Medium 12/02/2022 Medications azithromycin (ZITHROMAX) 250 mg tabletIndication s:Upper respiratory tract infection, unspecified type Take two tabs first day, then one tab daily x 4 days 6 tablet Active Additional Information Patient not taking.Reported on 08/10/2024 albuterol HFA (PROVENTIL HFA,VENTOLIN HFA,PROAIR HFA) 90 mcg/actuation inhalerIndicatio ns:Upper respiratory tract infection, unspecified type Inhale 2 puffs every 4 (four) hours as needed for wheezing or shortness of breath 1 each 11/25/202 4 Active ondansetron (ZOFRAN) 4 mg tablet TAKE 1 TABLET BY MOUTH EVERY 6 HOURS NEEDED FOR NAUSEA OR VOMITING 5 Active Active Problems Problem Noted Date Diagnosed Date Acute vaginitis 11/22/2018 Acute cervicitis 01/27/2018 Urinary tract infection in female 12/26/2017 Estimated Date of Delivery Comme nts Yes 02/26/2025 Social History Tobacco Use Types Packs/Day Years Used Date Smoking Tobacco: Former Smokeless Tobacco: Never Tobacco Cessation:Counseling Given: Not Answered Alcohol Use Standard Drinks/Week Comments No 0 (1 standard drink = 0.6 oz pur e alcohol) Estimated Date of Delivery Comme nts Yes 02/26/2025 Sex and Gender Information Value Date Recorded Sex Assigned at Not on file Legal Sex Female 6:10 AM PRODUCT DEVELOPMENT CHEMIST Gender Identity Not on file Sexual Orientation Not on file Last Filed Vital Signs Vital Sign Reading Time Taken Comments Blood Pressure 122/72 08/10/2024 8:37 AM PRODUCT DEVELOPMENT CHEMIST Pulse 100 08/10/2024 8:37 AM PRODUCT DEVELOPMENT CHEMIST Temperature 36.9 C (98.5 F) 08/10/2024 8:37 AM PRODUCT DEVELOPMENT CHEMIST Respiratory Rate 19 08/10/2024 8:37 AM PRODUCT DEVELOPMENT CHEMIST Oxygen Saturation 97% 08/10/2024 8:37 AM PRODUCT DEVELOPMENT CHEMIST Inhaled Oxygen Concentration - - Weight 65.6 kg (144 lb 9.6 oz) 08/10/2024 8:37 A M PRODUCT DEVELOPMENT CHEMIST Height 167.6 cm (5' 6 ) 08/10/2024 8:37 AM PRODUCT DEVELOPMENT CHEMIST Body Mass Index 23.34 08/10/2024 8:37 AM PRODUCT DEVELOPMENT CHEMIST Plan of Treatment Not on file Procedures Procedure Name Priority Date/Time Associated Diagnosis Comments POC INFLUENZA A/B, COVID-19 ANTIGEN Routine 08/10/2024 8:57 AM PRODUCT DEVELOPMENT CHEMIST Viral URI with cough POCT RAPID STREP Routine 08/10/2024 8:51 AM PRODUCT DEVELOPMENT CHEMIST Viral URI with cough N. GONORRHOEAE/C. TRACHOMATIS AMPLIFICATION Routine 12/02/2022 10:26 AM CDT Vaginal burning from Last 3 Months or Most Recently Relevant to Health Maintenance Results * POC Influenza A/B, COVID-19 antigen (08/10/2024 8:57 AM PRODUCT DEVELOPMENT CHEMIST) Influenza A Ag, POC Negative Negative [facility] Influenza B Ag, POC Negative Negative [facility] COVID-19 Ag POC Presumptive Negative Presumptive Negative, Invalid [facility] Nasal 08/10/2024 8:57 AM PRODUCT DEVELOPMENT CHEMIST Bettina Guzman NP POINT OF CARE TEST ORDERABLES Fi nal Result Performing Organization Address [facility] Co de Phone Number [facility] [address] [place] [address], [facility] * POCT rapid strep A (08/10/2024 8:51 AM PRODUCT DEVELOPMENT CHEMIST) Pathologist [facility] Rapid Strep A, POC Negative Negative Swab 08/10/2024 8:51 AM PRODUCT DEVELOPMENT CHEMIST Bettina Guzman NP POINT OF CARE TEST ORDERABLES Fi nal Result * N. gonorrhoeae/C. trachomatis Amplification Urine (12/02/2022 10:26 AM CDT) Pathologist [facility] C. trachomatis Not detected Not detected MICHAEL LEE N. gonorrhoeae Not detected Not detected MICHAEL LEE Comment: Testing performed by the [facility]. This assay detects Chlamydia trachomatis and Neisseria gonorrhoeae by nucleic acid amplification testing (NAAT). This test is approved by the [facility] Food and Drug Administration and the performance characteristics have been verified by the laboratory. The performance characteristics of this test have not been evaluated in women or individuals less than 16 years of age. Urine (None) 12/02/2022 10:2 6 AM CDT 12/03/2022 8:43 AM CDT us Bettina Guzman NP LAB MICROBIOLOGY - GENERAL ORDER KATHERINE Final Result Performing Organization Address City/[facility]/ZIP Co de Phone Number MICHAEL LEE [id number] [address] Department [place] [address] from Last 3 Months or Most Recently Relevant to Health Maintenance Insurance [facility] MEDICAID [facility] MEDICAID [facility] CHOICE PLUS [facility] [place] [address] [facility] MEDICAID Care Teams Ad Operations Coordinator Relationship Specialty Start Date End Date Mike Ugarte MD PCP - General 07/26/17 Mike Ugarte MD Pediatrics 07/25/17 Jessica Recinos PT Physical Therapist Physical Therapy 07/26/17 Isabel Pineda NP [address] [address] [place] [id number] Nurse Practitioner Nurse Practitioner 02/05/18 Brandi Lambert PT Physical Therapist Physical Therapy 02/07/18
--- OUTSIDE RECORDS SUMMARY | 2024-10-20 16:29 | XMS_ITS | Clinical Summary ---
Author Organization [facility] Address [address] [place] [address] Care Team Providers Care Vac Press Operator Name Role Phone Jaylyn Andrade MD Primary Care Provider [phone] Source Comments [facility],non-owned Affiliates and Associated Physician Practices is amultiple site organization consisting of ambulatory clinics and hospital sitesin [place], [place], [place] and [place]. This disclosure is being madepursuant to the Care Everywhere program and may not contain all information available regarding this patient. Last updated 18.[facility] [employer] Allergies No known active allergies Medications * Be aware that medications may not be up to date on this document. Alwaysverify current medications with the patient. Medication Sig Dispensed Refills Start Date End Date Status SUMAtriptan (IMITREX) 25 MG tablet 0 10/04/2014 Active naproxen (NAPROSYN) 500 MG tabletIndications:Chr onic daily headache Take 1 Tab by mouth 2 times daily as needed for Pain (moderate-severe headache). 12 Tab 2 11/22/2014 Active nortriptyline (PAMELOR) 10 MG capsuleIndications:Ch ronic daily headache 1 cap PO QHS x 2 weeks, then increase to 2 caps PO QHS 60 Cap 5 11/22/2014 Active Active Problems Problem Noted Date Diagnosed Date Abdominal pain 08/22/2017 Nausea 08/22/2017 Underweight 08/22/2017 Depression 08/22/2017 Adjustment disorder with depressed mood 08/22/19 18 Chronic daily headache 11/22/2014 Assessment & Plan (11/22/2014 2:38 PM CDT): Chronic daily headaches are mostly migraines, worsened by analgesic overuse and some lifestyle issues. 1. Keep headache diary 2. Maintain active lifestyle 3. Eat healthy diet, and do not skip meals 4. Drink plenty of water, and avoid caffeine regularly. 5. Sleep: 1. Maintain good sleep routine. 2. Avoid distractions at bedtime such as TV, computer. 3. Get at least 8-10 hours of sleep nightly 6. Do not use pain medication (such as Tylenol, Ibuprofen) more than 3-4 times/week in order to avoid medication overuse headaches 7. Use Naproxen 500 mg twice a day as needed only for headaches - take at onset of headache 8. Start Nortriptyline 10 mg caps - 1 cap at bedtime x 2 weeks, then increase to 2 caps at bedtime. Take regularly and as prescribed. 9. Call in 4-6 weeks with update regarding headaches, sooner for concerns Social History Tobacco Use Types Packs/Day Years Used Date Smoking Tobacco: Never Assessed Sex and Gender Information Value Date Recorded Sex Assigned at Not on file Gender Identity Not on file Sexual Orientation Not on file Last Filed Vital Signs Vital Sign Reading Time Taken Comments Blood Pressure 108/66 07/25/2017 11:11 AM ASSURANCE SENIOR MANAGER INSURANCE per pcp Pulse 84 07/25/2017 11:11 AM ASSURANCE SENIOR MANAGER INSURANCE per pcp Temperature 36.6 C (97.9 F) 07/25/2017 11:11 AM ASSURANCE SENIOR MANAGER INSURANCE per pcp Respiratory Rate 16 07/25/2017 11:1 1 AM ASSURANCE SENIOR MANAGER INSURANCE per pcp Oxygen Saturation - - Inhaled Oxygen Concentration - - Weight 46.2 kg (101 lb 12.8 oz) 018 11:11 AM ASSURANCE SENIOR MANAGER INSURANCE per pcp Height 168.3 cm (5' 6.25 ) 07/25/2017 1 1:11 AM ASSURANCE SENIOR MANAGER INSURANCE per pcp Body Mass Index 16.31 07/25/2017 11:11 AM ASSURANCE SENIOR MANAGER INSURANCE Plan of Treatment Health Maintenance Due Date Last Done Comments PAP SMEAR 1999 HIV SCREENING 12/15/2014 HPV VACCINE (1 - 3-dose series) 12/15/2014 CHLAMYDIA/GONORRHEA SCREENING 2015 HEPATITIS C SCREENING 12/11/2017 DTAP/TDAP/TD VACCINES (1 - Tdap) 12/15/2018 HEPATITIS B VACCINE (1 of 3 - 19+ 3-dose series) 12/15/2018 COVID-19 VACCINE (1 - 2023-2 5 season) 2024 DEPRESSION SCREENING 07/15/2024 INFLUENZA VACCINE (Season Ended) 2025 ZOSTER VACCINE (1 of 2) 12/15/2049 HIB VACCINE Aged Out No longer eligi ble based on patient's age to complete this topic MENINGOCOCCAL (Group B) VACC INE SHARED DECISION-MAKING Aged Out No longer eligibl e based on patient's age to complete this topic MENINGOCOCCAL GROUPS A/C/Y/W VACCINE Aged Out No longer eligible b ased on patient's age to complete this topic PNEUMOCOCCAL VACCINE Aged Out No long er eligible based on patient's age to complete this topic Care Teams Vac Press Operator Relationship Specialty Start Date End Date Jaylyn Andrade MD [address] [place] [address] PCP - General Pediatrics 11/05/14
== END 2024-10-20 15:03 | disposition home or self-care (01) ==
PROVIDERS: Visit Provider Student in an Organized Health Care Education/Training Program
DX: Z34.82 Encounter for supervision of other normal pregnancy, second trimester (principal); Z3A.22 22 weeks gestation of pregnancy
CPT/HCPCS: 76805

== ENCOUNTER 2024-12-05 11:20 | Outpatient (CLI) | payer OTHER, SELFPAY ==
--- OUTSIDE RECORDS SUMMARY | 2024-12-05 11:23 | XMS_ITS | Clinical Summary ---
Author Organization [facility] Address [address] [place] [address] Phone Care Team Providers Care Fundraising Manager Name Role Phone Provider, None Primary Care Provider Unavailabl e Allergies Active Allergy Reactions Criticality Noted Date Comments Latex Hives 11/29/2024 Medications No known medications Encounters Date Type Department Care Team Description 11/29/2024 12:49 AM CDT - 11/29/2024 2:09 AM CDT Emergency [facility] Emergency [address] [place] [address] Luis Tapia MD COVID Discharge Disposition: Discharged to home or Selfcare 11/29/2024 Travel from Last 3 Months Social History Tobacco Use Types Packs/Day Years Used Date Smoking Tobacco: Never Smokeless Tobacco: Never Tobacco Cessation:Counseling Given: Not Answered Alcohol Use Standard Drinks/Week Comments Never 0 (1 standard drink = 0.6 oz pur e alcohol) Estimated Date of Delivery Comme nts Yes 02/22/2025 Sex and Gender Information Value Date Recorded Sex Assigned at Not on file Legal Sex Female 12:48 AM CDT Gender Identity Not on file Sexual Orientation Not on file Last Filed Vital Signs Vital Sign Reading Time Taken Comments Blood Pressure 117/81 11/29/2024 2:00 AM CDT Pulse 102 11/29/2024 2:00 AM CDT Temperature 37 C (98.6 F) 11/29/2024 12:54 AM CDT Respiratory Rate 18 11/29/2024 2:00 AM CDT Oxygen Saturation 100% 11/29/2024 2:00 AM CDT Inhaled Oxygen Concentration - - Weight 71.2 kg (156 lb 15.5 oz) 025 12:54 AM CDT Height 170.2 cm (5' 7 ) 11/29/2024 12:5 4 AM CDT Body Mass Index 24.58 11/29/2024 12:54 AM CDT Plan of Treatment Not on file Procedures Procedure Name Priority Date/Time Associated Diagnosis Comments RSV,SARS-COV-2,INFL UENZA A&B BY PCR STAT 11/29/2024 1:03 AM CDT from Last 3 Months Results * (ABNORMAL) RSV,SARS-COV-2,INFLUENZA A&B BY PCR (11/29/2024 1:03 AM CDT) FLU A Negative Negative, Error 11/29/2024 1:47 AM CDT [facility] FLU B Negative Negative 11/29/2024 1:47 AM CDT [facility] RESP SYNC VIRUS Negative Negative 11/29/2024 1:47 AM CDT [facility] SARSCOV2 DETECTED(A) (Reference Range for this test is Not Detected) 11/29/2024 1:47 AM CDT [facility] Swab NASOPHARYNGEAL STRUCTURE / Unknown Non-Phlebotomy Collection / Unknown 11/29/2024 1:03 AM CDT 11/29/2024 1:09 AM CDT us Luis Tapia MD MICROBIOLOGY - GENERAL OR DERABLES Final Result [facility] [address] [place] [address] from Last 3 Months Additional Health Concerns Infection Onset Date Last Indicated COVID - 19 Confirmed 11/29/2024 11/29/2024 Care Teams Fundraising Manager Relationship Specialty Start Date End Date Provider, None [place] PCP - General 11/29/24
--- OUTSIDE RECORDS SUMMARY | 2024-12-05 11:23 | XMS_ITS | Clinical Summary ---
Author Organization [facility] Address [address] [place] [address] Care Team Providers Care Precision Jig Grinder Name Role Phone Mike Ugarte MD Unavailable [phone] Mike Ugarte MD Primary Care Provider Jessica Recinos PT Unavailable Unavailable Pineda, Isabel Johnston TRACK TEMPLATE MAKER Unavailable [phone] Brandi aLmbert PT Unavailable Unavailab le Allergies Active Allergy [...] Date of Delivery Comme nts Yes 02/26/2025 Medical History Medical History Date Comments GERD [...] on file Legal Sex Female 6:10 AM ACTIVITIES COUNSELOR Gender Identity Not on file Sexual Orientation Not on file Obstetrics History Para Term AB IAB SAB Ectopic Multiple Livin g Live Births 1 Date Outcome GA Total Labor Labor/2nd/3rd Weight Sex Type Anes PTL Christine A1 A5 Name Clin Current Last Filed Vital Signs Vital Sign Reading Time Taken Comments Blood Pressure 122/72 08/10/2024 8:37 AM ACTIVITIES COUNSELOR Pulse 100 08/10/2024 8:37 AM ACTIVITIES COUNSELOR Temperature 36.9 C (98.5 F) 08/10/2024 8:37 AM ACTIVITIES COUNSELOR Respiratory Rate 19 08/10/2024 8:37 AM ACTIVITIES COUNSELOR Oxygen Saturation 97% 08/10/2024 8:37 AM ACTIVITIES COUNSELOR Inhaled Oxygen Concentration - - Weight 65.6 kg (144 lb 9.6 oz) 08/10/2024 8:37 A M ACTIVITIES COUNSELOR Height 167.6 cm (5' 6 ) 08/10/2024 8:37 AM ACTIVITIES COUNSELOR Body Mass Index 23.34 08/10/2024 8:37 AM ACTIVITIES COUNSELOR Plan of Treatment Health Maintenance Due Date Last Done Comments Cervical Cancer Screening 1999 Depression Screening 1999 Hepatitis C Screening 1999 Regular Well Visit/Exam 18-64 12/15/2017 DTaP/Tdap/Td Vaccine (7 - Td or Tdap) 02/23/2021 02/23/2011, 03/01/2004, 03/03/2003, Additional history exists Chlamydia and Gonorrhea (GC/CT) Screening 12/03/2023 12/02/2022, 11/22/2018 Covid-19 Vaccine ( season) 2024 08/17/2020, 07/27/2020 Influenza Vaccine (Season Ended) 2025 04/03/2021, 05/20/2013, 06/03/2012 Hepatitis B Screening Completed 05/01/2001 , 01/13/2000, 1999 Varicella Vaccines Completed 03/13/2007, 11/04/2001 HPV Vaccines Completed 11/26/2013, 12/2012, 06/03/2012 Pneumococcal vaccine <65 Aged Out No longer eligible based on patient's age to complete this topic Procedures Procedure Name Priority Date/Time Associated Diagnosis Comments N. GONORRHOEAE/C. TRACHOMATIS AMPLIFICATION Routine 12/02/2022 10:26 AM CDT Vaginal burning from Last 3 Months or Most Recently Relevant to Health Maintenance Results * N. gonorrhoeae/C. trachomatis Amplification Urine (12/02/2022 10:26 AM CDT) C. trachomatis Not detected Not detected MICHAEL LEE N. gonorrhoeae Not detected Not detected MICHAEL LEE Comment: Testing performed by the [facility]. This assay detects Chlamydia trachomatis and Neisseria gonorrhoeae by nucleic acid amplification testing (NAAT). This test is approved by the [facility] Food and Drug Administration and the performance characteristics have been verified by the laboratory. The performance characteristics of this test have not been evaluated in women or individuals less than 16 years of age. Urine (None) 12/02/2022 10:2 6 AM CDT 12/03/2022 8:43 AM CDT Bettina Guzman NP LAB MICROBIOLOGY - GENERAL ORDER KATHERINE Final Result MICHAEL [id number] [address] [place] [address] from Last 3 Months or Most Recently Relevant to Health Maintenance Insurance [facility] MEDICAID [facility] MEDICAID [facility] CHOICE PLUS [facility] MEDICAID [facility] MEDICAID Care Teams Precision Jig Grinder Relationship Specialty Start Date End Date Mike Ugarte MD PCP - General 07/26/17 Mike Ugarte MD Pediatrics 07/25/17 Jessica Recinos, PT Physical Therapist Physical Therapy 07/26/17 Isabel Pineda NP [address] [place] [address] Nurse Practitioner Nurse Practitioner 02/05/18 Brandi Lambert, PT Physical Therapist Physical Therapy 02/07/18
--- OUTSIDE RECORDS SUMMARY | 2024-12-05 11:23 | XMS_ITS | Clinical Summary ---
Author Organization [facility] Address [address] [place] [address] Care Team Providers Care Pharmacy Retail Support Specialist Name Role Phone Jaylyn Andrade MD Primary Care Provider Source Comments [facility],non-owned Affiliates and Associated Physician Practices is amultiple site organization consisting of ambulatory clinics and hospital sitesin [place], [place], [place] and [place]. This disclosure is being madepursuant to the Care Everywhere program and may not contain all information available regarding this patient. Last updated 18.[facility] [employer] [facility] Allergies No known active allergies Medications * Be aware that medications may not be up to date on this document. Alwaysverify current medications with the patient. SUMAtriptan (IMITREX) 25 MG tablet 0 10/04/2014 Active naproxen (NAPROSYN) 500 MG tabletIndicatio ns:Chronic daily headache Take 1 Tab by mouth 2 times daily as needed for Pain (moderate-sev ere headache). 12 Tab 2 11/22/2014 Active nortriptyline (PAMELOR) 10 MG capsuleIndicati ons:Chronic daily headache 1 cap PO QHS x [...] with update regarding headaches, sooner for concerns Estimated Date of Delivery Comme nts Yes 02/25/2025 Based on last ne nstrual period of 05/21/2024 Encounters Date Type Department Care Team Description 11/30/2024 8:56 AM CDT - 11/30/2024 11:59 PM CDT Hospital Encounter [facility] [address] [place] [address] Gali Nguyen MD Discharge Disposition: Home or Self Care 11/02/2024 12:56 PM CDT - 11/02/2024 11:59 PM T Hospital Encounter [facility] [address] [place] [address] Erick Steinberg MD Discharge Disposition: Home or Self Care 10/27/2024 Travel 10/26/2024 Telephone [facility] SOAP MAKER [address] [place] [address] Neto Bolden MD Care from Last 3 Months Social History Tobacco Use Types Packs/Day Years Used Date Smoking Tobacco: Never Assessed Estimated Date of Delivery Comme nts Yes 02/25/2025 Based on last ne nstrual period of 05/21/2024 Sex and Gender Information Value Date Recorded Sex Assigned at Not on file Legal Sex Female 11:00 AM CDT Gender Identity Female 11/03/2024 5:38 PM CDT Sexual Orientation Not on file Last Filed Vital Signs Vital Sign Reading Time Taken Comments Blood Pressure 108/66 07/25/2017 11:11 AM MIDDLE SCHOOL BASEBALL COACH per pcp Pulse 84 07/25/2017 11:11 AM MIDDLE SCHOOL BASEBALL COACH per pcp Temperature 36.6 C (97.9 F) 07/25/2017 11:11 AM MIDDLE SCHOOL BASEBALL COACH per pcp Respiratory Rate 16 07/25/2017 11:1 1 AM MIDDLE SCHOOL BASEBALL COACH per pcp Oxygen Saturation - - Inhaled Oxygen Concentration - - Weight 46.2 kg (101 lb 12.8 oz) 018 11:11 AM MIDDLE SCHOOL BASEBALL COACH per pcp Height 168.3 cm (5' 6.25 ) 07/25/2017 1 1:11 AM MIDDLE SCHOOL BASEBALL COACH per pcp Body Mass Index 16.31 07/25/2017 11:11 AM MIDDLE SCHOOL BASEBALL COACH Plan of Treatment Health Maintenance Due Date Last Done Comments PAP SMEAR 1999 HIV SCREENING 12/15/2014 HPV VACCINE (1 - 3-dose series) 12/15/2014 HEPATITIS C SCREENING 12/11/2017 DTAP/TDAP/TD VACCINES (1 - Tdap) 12/15/2018 HEPATITIS B VACCINE (1 of 3 - 19+ 3-dose series) 12/15/2018 CHLAMYDIA/GONORRHEA SCREENING 12/03/2023 12/02/2022 COVID-19 VACCINE (3 - 2023-2 5 season) 2024 08/17/2020, 07/27/2020 DEPRESSION SCREENING 07/15/2024 OB-ONE HOUR GLUCOSE 11/19/2024 OB-TDAP CURRENT 11/26/2024 02/23/2011 OB-RHOGAM INJECTION 12/03/2024 INFLUENZA VACCINE (Season Ended) 2025 04/03/2021, 05/20/2013, 06/03/2012 ZOSTER VACCINE (1 of 2) 12/15/2049 HIB VACCINE Aged Out No longer eligi ble based on patient's age to complete this topic MENINGOCOCCAL (Group B) VACCINE SHARED DECISION-MAKING Aged Out No longer eligible based on patient's age to complete this topic MENINGOCOCCAL GROUPS A/C/Y/W VACCINE Aged Out No longer eligible b ased on patient's age to complete this topic PNEUMOCOCCAL VACCINE Aged Out No long er eligible based on patient's age to complete this topic Respiratory Syncytial Virus (RSV) Vaccine Pt: or over 60 yrs (No Doses Required) Completed Procedures Procedure Name Priority Date/Time Associated Diagnosis Comments SONOGRAM - COMPLETE Routine 11/30/2024 8 :54 AM CDT Encounter for anatomic survey (HCC) Placenta previa without hemorrhage, antepartum (HCC) SONOGRAM - COMPLETE Routine 11/02/2024 1 2:54 PM CDT Encounter for anatomic survey (HCC) Placenta previa without hemorrhage, antepartum (HCC) from Last 3 Months Results * SONOGRAM - COMPLETE (11/30/2024 8:54 AM CDT) Only the most recent of2 resultswithin the time period is included. Linked Results Indication ======== US 11/02- low-lying placenta, dilated kidneys, Left VEGETABLE LOADER Placenta previa on outside ultrasound Incomplete spine imaging Hx subchorionic hematoma in early History ====== OB History 2. Para 0 A1 Lab Tests Test Date Result NIPT Low risk, Male Maternal Assessment Physical Exam Height 168 cm, 5 ft 6 in. Weight 69 kg, 152 lb. Initial weight 65 kg, 144 lb. BMI 24.53 kg/m . Initial BMI 23.24 kg/m . Weight gain 4 kg, 8 lb Method ====== Transabdominal ultrasound. View: Sufficient ========= Pascual . Number of fetuses: 1 Dating ====== Date Details Gest. age NICHOLAS Stated NICHOLAS 27 w + 3 d 02/26/2025 Previous U/S 07/20/2024 GA, GA 8 w + 3 d 27 w + 3 d 02/26/2025 U/S 11/30/2024 based upon AC, BPD, Femur, HC 28 w + 5 d 02/17/2025 Assigned dating based on ultrasound (GA), selected on 11/02/2024 27 w + 3 d 02/26/2025 General Evaluation Cardiac activity present. FHR 132 bpm. Presentation: breech Placenta: Placental site: posterior; left. Placental slgx-jr-liyjzzdt os distance 23 mm. no longer low-lying Umbilical cord: Cord vessels: 3 vessel cord - previously documented. Insertion site: normal insertion - previously documented Amniotic fluid: Amount of AF: normal. MVP 5.3 cm Biometry BPD 71.7 mm 28w 5d 81% Hadlock HC 264.5 mm 28w 6d 66% Hadlock AC 240.4 mm 28w 2d 70% Hadlock Femur 54.8 mm 29w 0d 78% Hadlock Humerus 48.6 mm 28w 4d 76% Laisha HC / AC 1.10 Weight Calculation: EFW 1,254 g 81% Hadlock EFW (lb,oz) 2 lb 12 oz EFW by Hadlock (XED-[id number]-FL) appropriate Growth Overview Exam date GA BPD (mm) HC (mm) AC (mm) FL (mm) HL (mm) EFW (g) 11/02/2024 23w 3d 59.7 78% 219.2 55% 194.1 64% 43.4 65% 40.6 76% 666 75% 11/30/2024 27w 3d 71.7 81% 264.5 66% 240.4 70% 54.8 78% 48.6 76% 1254 81% Anatomy The following structures appear normal: Head / Neck Choroid plexus. Abdomen Stomach. Kidneys. Bladder. Spine Lumbar spine. Sacral spine. The following structures were documented previously: Head / Neck Cranium. Lateral ventricles. Midline falx. Cavum septi pellucidi. Cerebellum. Cisterna magna. Thalami. Nuchal fold. Face Lips. Profile. Nose. Nasal bone. Orbits. Heart / Thorax 4-chamber view. RVOT view. LVOT view. 3-vessel view. 7-bhhqcq-ldjtjqn view. Situs. Aortic arch view. Bicaval view. Ductal arch view. Great vessels. Right lung. Left lung. Diaphragm. Abdomen Cord insertion. Bowel. Genitals. Spine Cervical spine. Thoracic spine. Extremities / Skeleton Arms. Hands. Legs. Feet. Head / Neck other: Left VEGETABLE LOADER is no longer seen sex: male. Maternal Structures Cervix reassuring Approach - Transvaginal: Cervical length 2.90 cm Funneling absent Impression ========= Single, live, intrauterine at 27w 3d The size is appropriate. The amniotic fluid volume is normal. No major malformations were seen within the limitations of ultrasound Comment ======== ultrasound alone cannot detect all structural, genetic, or functional , placental, or maternal abnormalities Follow-up ======== Follow up as clinically indicated Coding ====== Procedures 40620: [place] [id number]: US Preg Uterus Transvaginal [facility] [employer] PACS Anatomical Region Laterality Modality Other 11/30/2024 8:54 AM CDT us Pardeep Smith MD [facility] ORDERABLES Edited Result - Final from Last 3 Months Insurance LEVEL FUNDED: [facility] Care Teams Pharmacy Retail Support Specialist Relationship Specialty Start Date End Date Jaylyn Andrade MD [address] [place] [id number] PCP - General Pediatrics 11/05/14
--- OUTSIDE RECORDS SUMMARY | 2024-12-05 11:23 | XMS_ITS | Data Portability ---
Author Organization [facility], Main Office Address [address] [place] [address] Assessment No assessment recorded. Plan of Treatment Reminders Order Date Submit Date Provider Last Modified By Organization Details Last Modified Time Details Appointments None recorded. Lab None recorded. Referral None recorded. Procedures None recorded. Surgeries None recorded. Imaging None recorded. Medication Orders prednisone 20 mg tablet 2022 023 [email or web address] #[id number], [address], [place], [place], [id number], 3 16:42:00 norethindro ne 1 mg-ethinyl estradiol 10 mcg (24)-iron 10 mcg(2) tablet 2022 023 JAKI [facility] #[id number], [address], [place], [place], [id number], 3 09:45:56 Patient TargetsNo targets recorded. Patient InstructionsNo instructions recorded. Reason for Referral None Reported. Results Created Date Observation Date Name Description Value Unit Range Abnormal Flag Note LastModifiedBy Organization Detail LastModifiedTime 09/11/19 22 09/11/2021 urina lysis , dipst ick Color Yellow Not Available [facility], [place], [address], 09/11/2021 09:37:09 09/11/19 22 09/11/2021 urina lysis , dipst ick Appearance Slight ly Cloudy Not Available [facility] , [place], [address], 09/11/2021 09:37:09/11/1909/11/2021 urina lysis , dipst ick Glucose (reference range: negative mg/dl) Negati ve Not Available [address] [place] [address], [place], [address], 09/11/2021 09:37:09/11/19 22 09/11/2021 urina lysis , dipst ick Bilirubin (reference range: negative mg/dl) Negati ve Not Available [address], [place], [address], 09/11/2021 09:37:09/11/19 22 09/11/2021 urina lysis , dipst ick Ketone (reference range: negative mg/dl) Negati ve Not Available [address], [place], [address], 09/11/2021 09:37:09/11/1909/11/2021 urina lysis , dipst ick Specific [place] (reference range: 1.005-1.030) 1.020 Not Available [place] [address], [place], [address], 09/11/2021 09:37:09/11/19 22 09/11/2021 urina lysis , dipst ick Blood (reference range: negative Zhen/ l) Negati ve Not Available [address], [place], [address], 09/11/2021 09:37:09/11/19 22 09/11/2021 urina lysis , dipst ick pH (reference range: 5-7) 7.0 Not Available [address] [address], [place], [address], 09/11/2021 09:37:09 09/11/19 22 09/11/2021 urina lysis , dipst ick Protein (reference range: negative mg/dl) Negati ve Not Available [address] , [place], [address], 09/11/2021 09:37:09 09/11/19 22 09/11/2021 urina lysis , dipst ick Urobilinogen (reference range: 0.2-1 mg/dl) 0.2 Not Available [address] , [place], [address], 09/11/2021 09:37:09 09/11/19 22 09/11/2021 urina lysis , dipst ick Nitrite (reference rage: negative mg/dl) positi ve Not Available [address] , [place], [address], 09/11/2021 09:37:09 09/11/19 22 09/11/2021 urina lysis , dipst ick Leukocytes (reference range: negative verenice/ l) Small Not Available [address] , [place], [address], 09/11/2021 09:37:09 04/03/20 23 04/02/2023 nerve condu ction study /EMG, upper extre mity (PROC ) No observ ation record ed. [email or web address] [facility] [address], [place], [address], 04/15/2023 18:19:19 07/20/19 25 07/20/2024 US, obste tric No observ ation record ed. [email or web address] [facility] [address], [place], [address], 08/20/2024 10:23:53 Result Notes None recorded. Problems Name Problem SNOMED Code Status Onset Date Resolution Date Notes Provider Name and Address Organization Details Recorded Time Acute pancreatit is 303708550 Active 2020 Not Available [facility] 3 05:57:28 Abdominal pain 66714406 Active Not Available [facility] 3 05:57:28 Mixed anxiety and depressive disorder 133263751 Active 2019 Not Available [facility] 3 05:57:28 Gastroesop hageal reflux disease 145655737 Active Not Available [facility] 3 05:57:28 Migraine 13349847 Active Not Available [facility] 3 05:57:28 Diarrhea 21217567 Active Not Available [facility] 3 05:57:28 Pain of right shoulder joint 0019870092215 9100 Active 2022 Oumou Seals MD [address], [address] , [facility] [employer] [facility] [employer] [facility] 3 10:28:14 Paresthesi a of upper limb 18073078 Active 2022 Oumou Seals MD [address] [facility], [address] [address], [place], [address] , [facility] [employer] [facility] [employer] [facility] 3 16:54:51 Herpes labialis 3043257 Active 2022 MARIANNE Saenz [address], [address] , [facility] [employer] [facility] 3 11:59:33 Problem Notes None recorded. Medical Equipment None Reported. Allergies Allergen ID Allergen Name Allergen Category Reaction Reaction Severity Criticality Documentation Date Start Date Code Code System Note Provider Name and Address Organization Details Recorded Time 41769 Prozac medicatio n other Not available Not available 09/12/2022 57991 RxNorm suici lorne ideat ion Not Available [facility] 3 06:03:12 Medications Name Sig Start Date Stop Date Status Note LastModified by Organization Details LastModified Time fluoxetine 40 mg capsule Take 1 capsule every day by oral route. 07/19 completed Not Available Not Available Not Available bupropion HCl SR 150 mg tablet,12 hr sustained-re lease 01/03 completed Not Available Not Available Not Available venlafaxine ER 37.5 mg capsule,exte nded release 24 hr TAKE 1 CAPSULE BY MOUTH EVERY DAY 01/18 completed Not Available Not Available Not Available venlafaxine ER 75 mg capsule,exte nded release 24 hr TAKE 1 CAPSULE BY MOUTH EVERY DAY active Not Available Not Available No t Available trazodone 50 mg tablet 01/03 completed Not Available Not Available Not Available valacyclovir 1 gram tablet Take 1 tablet every 12 hours by oral route for 7 days. active Not Available Not Available No t Available ondansetron HCl 8 mg tablet TAKE 1 TABLET DAILY 01/03 completed Not Available Not Available Not Available prednisone 20 mg tablet Take 2 tablets every day by oral route for 5 days. 2022 active Not Available Not Available Not Avai lable clonazepam 0.5 mg tablet 08/30 completed Not Available Not Available Not Available metronidazol e 500 mg tablet 01/18 completed Not Available Not Available Not Available alprazolam 0.25 mg tablet Take 1 tablet twice a day by oral route as needed for 30 days. active Not Available Not Available No t Available famotidine 20 mg tablet Take 1 tablet twice a day by oral route for 30 days. 01/03 completed Not Available Not Available Not Available amitriptylin e 25 mg tablet Take 1 tablet every day by oral route at bedtime for 30 days. 07/19 completed Not Available Not Available Not Available magnesium oxide 400 mg (241.3 mg magnesium) tablet TAKE 1 TABLET BY MOUTH EVERY DAY IN THE MORNING 11/02 completed Not Available Not Available Not Available dicyclomine 20 mg tablet 1 po q6 hours prn abd pain 01/03 completed Not Available Not Available Not Available doxycycline monohydrate 100 mg capsule 01/18 completed Not Available Not Available Not Available pantoprazole 40 mg tablet,delay ed release TAKE 1 TABLET BY MOUTH EVERY DAY 01/03 completed Not Available Not Available Not Available buspirone 10 mg tablet 1-1.5 tabs po tid prn anxiety 06/22 /2023 completed Not Available Not Available Not Available promethazine 25 mg/mL injection solution 1 ml IM x 1 03/13 completed Not Available Not Available Not Available omeprazole 20 mg capsule,calvin yed release Take 1 capsule every day by oral route for 30 days. 01/03 completed Not Available Not Available Not Available cefdinir 300 mg capsule 01/03 completed Not Available Not Available Not Available fluoxetine 20 mg capsule Take 1 capsule every day by oral route. active Not Available Not Available No t Available dicyclomine 10 mg capsule Take 1 capsule twice a day by oral route as needed for 30 days. active Not Available Not Available No t Available naproxen 500 mg tablet Take 1 tablet twice a day by oral route. active Not Available Not Available No t Available azithromycin 500 mg tablet 12/22 completed Not Available Not Available Not Available escitalopram 10 mg tablet TAKE 1 TABLET BY MOUTH EVERY DAY active Not Available Not Available No t Available bupropion HCl XL 150 mg 24 hr tablet, extended release 1 po qday 01/03 completed Not Available Not Available Not Available Lexapro 5 mg tablet Take 1 tablet every day by oral route. active Not Available Not Available No t Available nitrofuranto in monohydrate/ macrocrystal s 100 mg capsule Take 1 capsule every 12 hours by oral route for 7 days. 01/03 completed Not Available Not Available Not Available Plan B One-Step 1.5 mg tablet Take 1 tablet by oral route. 01/03 completed Not Available Not Available Not Available Lo Loestrin Fe 1 mg-10 mcg (24)/10 mcg (2) tablet 1 po qday active Not Available Not Available No t Available Vitals Date Recorded Body mass index (BMI) Body height Body weight Provider Name and Address Organization Details Last Updated DateTime 07/19/2021 21.9 kg/m2 170.18 cm 39129.93 g Not Available [facility] 09/12/2022 05:56:42 Date Recorded Body mass index (BMI) Body height Oxygen saturation Oxygen saturation in Arterial blood by Pulse oximetry Heart rate Body temperature Body weight Systolic And Diastolic Provider Name and Address Organization Details Last Updated DateTime 22.2 kg/m2 170.18 cm 98.02 % 98.02 % 69 /min 98.2 [degF] 44652.1 2 g 118/60 mm[Hg] Not Available [facility] 3 05:56:40 Date Recorded Body weight Body mass index (BMI) Body height Body temperature Heart rate Oxygen saturation Oxygen saturation in Arterial blood by Pulse oximetry Systolic And Diastolic Provider Name and Address Organization Details Last Updated DateTime 3 64035.7 9 g 21.5 kg/m2 167.64 cm 97.6 [degF] 97 /min 98 % 98 % 126/84 mm[Hg] Oriana Vance RN [facility] [employer] [facility] 3 09:27:02 Date Recorded Body height Body mass index (BMI) Body weight Body temperature Heart rate Oxygen saturation Oxygen saturation in Arterial blood by Pulse oximetry Systolic And Diastolic Provider Name and Address Organization Details Last Updated DateTime 3 167.64 cm 21.3 kg/m2 74695.1 9 g 98.2 [degF] 98 /min 99 % 99 % 114/80 mm[Hg] Oriana Vance RN [facility] [employer] [facility] 3 10:13:37 Date Recorded Body mass index (BMI) Body height Oxygen saturation Oxygen saturation in Arterial blood by Pulse oximetry Heart rate Body temperature Body weight Systolic And Diastolic Provider Name and Address Organization Details Last Updated DateTime 1 22.4 kg/m2 170.18 cm 98 % 98 % 91 /min 98.1 [degF] 79564.7 1 g 120/80 mm[Hg] Not Available [facility] 3 05:56:40 Social History Question Answer Notes LastModified by Organizat ion Details LastModified Time Tobacco Smoking Status Never Smoker Leanna jackson [place] [employer] [facility] 01/03/2023 09:23:24 Do You Have An Advance Directive? No [id number] Information not available 09/12/2022 What Is Your Level Of Caffeine Consumption? Occasional [id number] Information not available 09/12/2022 How Much Tobacco Do You Chew? None [id number] Information not available 09/12/2022 In The 14 Days Before Symptom Onset, Have You Had Close Contact With A Laboratory-confirm ed COVID-19 While That Case Was Ill? No [email or web address] Information n ot available 01/03/2023 In The 14 Days Before Symptom Onset, Have You Had Close Contact With A Person Who Is Under Investigation For COVID-19 While That Person Was Ill? No [email or web address] Information not available 01/03/2023 What Type Of Diet Are You Following? REGULAR [id number] Information not available 09/12/2022 What Was The Date Of Your Most Recent Tobacco Screening? 01/03/2023 [email or web address] Information not available 01/03/2023 How Much Tobacco Do You Smoke? No [id number] Information not available 09/12/2022 Do You Use Sunscreen Routinely? Yes [email or web address] Information not available 01/03/2023 Do You Have Any Dietary Restrictions? No [email or web address] Information not available 01/03/2023 How Many Years Have You Used E-cigarettes Or Vape? 2 [email or web address] Information not available 01/03/2023 Sex: Female Functional Status Question Answer Note LastModified by Organizat ion Details LastModified Time What is your level of alcohol consumption? None [id number] Information not available 09/12/2022 Do you or have you ever used smokeless tobacco? 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 Current user of electronic cigarettes [email or web address] Information not available 01/03/2023 What is your exercise level? Occasional [id number] Information not available 09/12/2022 Mental Status Question Answer Note LastModified by Organization D etails LastModified Time Do you feel stressed (tense, restless, nervous, or anxious, or unable to sleep at night)? [id number] [email or web address] Information not available 01/03/2023 Family History Relationship Description Onset Age of this Age Resolved Age Notes LastModified by Organization Details LastModified Time Mother Myocardial infarction 3x prior to 42 [id number] Not available 09/12/2022 05:53:12 Father Pancreatitis [email or web address] Not avail able 01/03/2023 09:23:23 Father Schizophreni a Not available 2022 09:23:23 Father Bipolar disorder [email or web address] Not available 2022 09:23:23 Maternal Grandfather Malignant neoplasm of lung Not available 2022 09:23:23 Medical History Condition Response BLINDNESS N RHEUMATIC FEVER N KIDNEY STONES N BLADDER PROBLEMS N MRSA N OTHER # 1 N POLIO N LUNG DISEASE/DISORDER N HISTORY OF DRUG ABUSE N RADIATION / CHEMOTHERAPY N COPD N Other # 2 N BLOOD DISEASES N SURGERY N EAR OR HEARING PROBLEMS N MUMPS N SHINGLES N FEMALE PROBLEMS / INFECTIONS N DEPRESSION (INCLUDING POST ) N BOWEL PROBLEMS N STROKE/TIA N THYROID DISEASE N ULCERS N BENIGN PROSTATIC HYPERPLASIA N MEASLES N CERVICALGIA N TB SKIN TEST N HYPOTENSION N MYOCARDIAL INFARCTION N PARAPELGIA N OBESITY N GERD/NAUSEA N ANEURYSM N URINARY/BLADDER/KIDNEY PROBLEMS N CORONARY ARTERY DISEASE (CAD) N MENIERE'S DISEASE N Do you have Advance directive? N ADDICTION CONCERNS N ENDOMETRIOSIS N USE OF BLOOD THINNERS N SKIN PROBLEMS N EMPHYSEMA N GASTROINTESTINAL DISORDER N MUSCLE,JOINT OR BONE PROBLEMS N GASTROINTESTINAL BLEEDING N Do you have a living will? N BLOOD CLOTS N ASTHMA N CATARACTS N ERECTILE DYSFUNCTION N GI PROBLEMS N CHF N Low Testosterone N NEUROPATHY N INFERTILITY N AIDS/HIV N FRACTURES N CHEMOTHERAPY / RADIATION N VISION/EYE PROBLEMS N LIVER DISEASE N MALE HYPOGONADISM N HYPERTENSION N TOURETTE'S N ANXIETY DISORDER N BLOOD TRANSFUSION N ANEMIA/BLOOD DISORDER N CHRONIC EAR INFECTIONS N BRONCHITIS N TUBERCULOSIS N GLAUCOMA N FOOT PROBLEM N DIVERTICULITIS N SLEEP APNEA N CHICKENPOX N ALLERGIES/HAYFEVER N INFECTIOUS DISEASE N PROSTATE N HEART ARRHYTHMIA N INSOMNIA N HIGH CHOLESTEROL / HYPERLIPIDEMIA N EYE PROBLEMS N HYPERTHYROIDISM N EATING DISORDER N EDEMA N CHRONIC PAIN SYNDROME N CAROTID BLOCKAGE N CONSTIPATION N BACK / NECK PROBLEMS N HAVE YOU BEEN HOSPITALIZED OR SEEN IN [facility] IN THE PAST YEAR ? N MIGRAINES Y ATHEROSCLEROSIS N BREAST PROBLEMS N DIALYSIS N ECZEMA N FIBROMYALGIA N OSTEOPOROSIS N ARTHRITIS N Do you have a healthcare POA? N NO SIGNIFICANT PAST MEDICAL HISTORY N APPENDICITIS N DIABETES, TYPE N BAD TEETH N HEARTBURN / REFLUX N ADD/ADHD N AFIB N AUTISM SPECTRUM DISORDER (ASD) N HEPATITIS / LIVER DISEASE N PULMONARY DISEASE N GOUT N SLEEP DISORDER N ALZHEIMER'S DISEASE N PAIN N DEMENTIA N HERPES N SEIZURES/EPILEPSY N HEADACHES/MIGRAINES N VASCULAR DISEASE N PACEMAKER N DIZZINESS N HEART DISEASE/HEART PROBLEMS N KIDNEY DISEASE N SCARLET FEVER N MULTIPLE SCLEROSIS N MENTAL DISORDER/ILLNESS N DEVELOPMENTAL OR BEHAVIORAL DISORDERS N CANCER: SPECIFY N CARDIAC ARRHYTHMIA N PNEUMONIA N ATRIAL FIBRILLATION N Gall Stones N PULMONARY EMBOLISM N AUTOIMMUNE DISEASE N Gynecological History Statement/Question Response How many live births 0 Flow Moderate Date of LMP 07/15/2021 Dislike of Light during Menstrual Headac he N Menses Monthly N Duration of Flow (days) 4 Current Control Method None Age at Menarche 10 Breast Problems NO Obstetrics History GPAL:G 0 P 0 0 0 0 Immunizations Vaccine Type Date Status Note Provider Nam e and Address Organization Details Recorded Time Influenza, split virus, quadrivalent, PF 04/03/2021 completed Not Available [facility] 06:03:05 Past Encounters Encounter ID Performer Location Encounter Start Date Encounter Closed Date Diagnosis/Indication Diagnosis SNOMED-CT Code Diagnosis ICD10 Code Diagnosis Note [id number] Oumou Seals MD [facility] [address] [place] [address] 11/02/2020 00:00:00 11/02/2020 09:32:33 [id number] Oumou Seals MD [facility] Primary [facility] [address] [place] [address] 12/22/2020 00:00:00 12/22/2020 09:22:50 [id number] _ATHN_MIGR ATION_1 _ATHENA_M IGRATION_ DEFAULT_1 _1 , 01/18/2021 00:00:00 01/18/2021 17:06:49 [id number] Oumou Seals MD [facility] [address] [place] [address] 03/13/2021 00:00:00 03/13/2021 18:54:00 [id number] Oumou Seals MD [facility] Primary Care [address] [place] [address] 04/03/2021 00:00:00 04/03/2021 15:06:21 [id number] MOE Buck [facility] Primary Care [address] [place] [address] 04/07/2021 00:00:00 04/07/2021 12:12:00 [id number] MOE Buck [facility] Primary [facility] [place] [address] [place] [address] 04/18/2021 00:00:00 04/18/2021 10:31:33 [id number] MOE Buck [facility] Primary [facility] [place] [address] [place] [address] 05/08/2021 00:00:00 05/08/2021 11:30:58 [id number] Oumou Seals MD [facility] Primary [facility] [place] [address] [place] [address] 06/12/2021 00:00:00 06/12/2021 12:14:53 [id number] Oumou Seals MD [facility] Primary [facility] [place] [address] [place] [address] 07/19/2021 00:00:00 07/19/2021 15:09:21 [id number] MOE Buck [facility] Primary [facility] [place] [address] [place] [address] 09/11/2021 00:00:00 09/11/2021 16:05:19 [id number] Oumou Seals MD [facility] Primary [facility] [place] [address] [place] [address] 01/03/2023 09:21:58 01/03/2023 09:48:29 Adult health examination 626829189 Z00.00 Begin lo paula fe [id number] Oumou Seals MD [facility] Primary [facility] [place] [address] [place] [address] 02/07/2023 10:07:19 02/07/2023 13:47:33 Pain of right shoulder joint 3691992353 0440813 M25.511 home exercise handout givenpredn isone with food x 5 days, avoid other nsaidscall Saturday for ortho referral if no improvemen t Health Concerns Section Related Observation LastModified by Organization Detai ls LastModified Time None Recorded Concern Status LastModified by Organization Details LastModified Time None Recorded Advance Directives Directive N: Payers Encounter Date Sequence Insurance Name Policy Number Policy Rincon Covered Member ID Rincon Member ID Guarantor Name 01/03/2023 1 [facility] - DOS ON OR AFTER 21 (MEDICAID REPLACEMENT - HMO) Chen Ralph [id number] Chen Ralph 02/07/2023 1 [facility] - DOS ON OR AFTER 21 (MEDICAID REPLACEMENT - HMO) Chen Ralph [id number] Chen Ralph Notes Date Note Type Note Provider Name and Address Organization Details Recorded Time 01/03/2023 text/html Here for check up, had STI screen due to new partner last week all normal. She is up to date with pap smears. She is interested in restarting control. She does not want IUD or nexplanon because she did not do well on these in the past. Nuvaring caused heavier bleeding. Oumou Seals MD [address], [place], [address], [employer] 01/11/2023 14:08:01 02/07/2023 text/html Last saturday stared with right shoulder pain, no recent injury or overuse (has had a problem with it off and on for years). Described as dull but intense pain radiating from back of shoulder/shoulder blade that radiated down to pointer finger and thumb. Still has a pressure sensation. Initially had pins and needles sensation from shoulder down to pointer finger and thumb. Pointer finger is almost back to normal but thumb is constantly numb. She is right hand dominant. She is having a hard time griping due to numbness. She has not done anything to it. She is dropping objects at work. Oumou Seals MD [address], [place], [address], [employer] 02/10/2023 16:42:56 OBGyn Episode No OBEpisode recorded.
--- OUTSIDE RECORDS SUMMARY | 2024-12-05 11:23 | XMS_ITS | Referral Summary ---
Author Organization [facility] Address [address] [place] [address] Care Team Providers Care Channel Account Manager Name Role Phone Mike Ugarte MD Unavailable [phone] Mike Ugarte MD Primary Care Provider Jessica Recinos PT Unavailable Unavailable Pineda, Isabel Johnston PHOTOGRAPHY AND PRINTS CURATOR Unavailable [phone] Brandi Lambert PT Unavailable Unavailab le Allergies [...] on file Legal Sex Female 6:10 AM FINISHING AREA SUPERVISOR Gender Identity Not on file Sexual Orientation Not on file Last Filed Vital Signs Vital Sign Reading Time Taken Comments Blood Pressure 122/72 08/10/2024 8:37 AM FINISHING AREA SUPERVISOR Pulse 100 08/10/2024 8:37 AM FINISHING AREA SUPERVISOR Temperature 36.9 C (98.5 F) 08/10/2024 8:37 AM FINISHING AREA SUPERVISOR Respiratory Rate 19 08/10/2024 8:37 AM FINISHING AREA SUPERVISOR Oxygen Saturation 97% 08/10/2024 8:37 AM FINISHING AREA SUPERVISOR Inhaled Oxygen Concentration - - Weight 65.6 kg (144 lb 9.6 oz) 08/10/2024 8:37 A M FINISHING AREA SUPERVISOR Height 167.6 cm (5' 6 ) 08/10/2024 8:37 AM FINISHING AREA SUPERVISOR Body Mass Index 23.34 08/10/2024 8:37 AM FINISHING AREA SUPERVISOR Plan of Treatment Not on file Procedures Procedure Name Priority Date/Time Associated Diagnosis Comments N. GONORRHOEAE/C. TRACHOMATIS AMPLIFICATION Routine 12/02/2022 10:26 AM CDT Vaginal burning from Last 3 Months or Most Recently Relevant to Health Maintenance Results * N. gonorrhoeae/C. trachomatis Amplification Urine (12/02/2022 10:26 AM CDT) C. trachomatis Not detected Not detected MICHAEL N. gonorrhoeae Not detected Not detected MICHAEL Comment: Testing performed by the [facility]. This assay detects Chlamydia trachomatis and [...] - GENERAL ORDER [place] [address] Department [place] [address] from Last 3 Months or Most Recently Relevant to Health Maintenance Insurance [facility] MEDICAID [facility] CHOICE PLUS [facility] MEDICAID [facility] Care Teams Channel Account Manager Relationship Specialty Start Date End Date Mike Ugarte MD PCP - General 07/26/17 Mike Ugarte MD Pediatrics 07/25/17 Jessica Recinos, PT Physical Therapist Physical Therapy 07/26/17 Isabel Pineda NP [address] [place] [address] [place] [id number] Nurse Practitioner Nurse Practitioner 02/05/18 Brandi Lambert, PT Physical Therapist Physical Therapy 02/07/18
[2024-12-05 13:12] LABS: Basophils Percent Auto 0.4 % (0.2-1.2); Eosinophils Absolute Auto 0.1 K/mm3 (0-0.3); Eosinophils Percent Auto 0.7 % (0-4.4); Hematocrit 33.7 % (37.0-47.0); Hemoglobin 11.2 g/dL (12.0-15.0); Immature Granulocyte Absolute 0.24 K/mm3 (0.00-0.031); Immature Granulocyte Percent A 2.7 % (0-0.5); Lymphocytes Absolute Auto 1.69 K/mm3 (0.9-3.2); Lymphocytes Percent Auto 18.7 % (18.3-44.2); Mean Corpuscular HGB Conc 33.2 g/dl (32-36); Mean Corpuscular Hemoglobin 30.3 pg (26-34); Mean Corpuscular Volume 91.1 fl (80-100); Mean Platelet Volume 10.4 fl (7.4-10.4); Monocytes Absolute Auto 0.4 K/mm3 (0.1-0.6); Monocytes Percent Auto 4.9 % (2.6-8.5); Neutrophils Absolute Auto 6.6 K/mm3 (1.3-6.7); Neutrophils Percent Auto 72.6 % (45.5-73.1); Platelet Count Result 227 k/mm3 (150-375); Red Cell Distribution Width 13.7 % (11.5-14.5)
[2024-12-05 13:21] LABS: Glucose 1 Hour PP 50gm Dose 138 mg/dL
[2024-12-05 14:03] LABS: HIV 1/2 Ab P24 Ag Result Negative (Negative)
[2024-12-05 14:12] LABS: Syphilis IgG/IgM Antibody Negative (Negative)
== END 2024-12-05 11:21 | disposition home or self-care (01) ==
LOC: ANHLAB 11:22
PROVIDERS: Visit Provider Student in an Organized Health Care Education/Training Program
DX: Z34.90 Encounter for supervision of normal pregnancy, unspecified, unspecified trimester (principal); Z3A.00 Weeks of gestation of pregnancy not specified
CPT/HCPCS: 36415; 82947; 85025; 86593; 86703; G0432

== ENCOUNTER 2024-12-14 07:02 | Outpatient (CLI) | payer OTHER, SELFPAY ==
--- OUTSIDE RECORDS SUMMARY | 2024-12-14 07:05 | XMS_ITS | Clinical Summary ---
Author Organization [facility] Address [address] [place] [address] Phone Care Team Providers Care Shellfish Grower Name Role Phone Provider, None Primary Care Provider Unavailabl e Allergies Active Allergy Reactions Criticality Noted Date Comments Latex Hives 11/29/2024 Medications No known medications Encounters Date Type Department Care Team Description 11/29/2024 12:49 AM CDT - 11/29/2024 2:09 AM CDT Emergency [facility] [address] [place] [address] Luis Tapia MD COVID Discharge [...] 12:54 AM CDT Height 170.2 cm (5' 7) 11/29/2024 12:5 4 AM CDT Body Mass Index 24.58 11/29/2024 12:54 AM CDT Plan of Treatment Not on file Procedures Procedure Name Priority Date/Time Associated Diagnosis Comments RSV,SARS-COV-2,INFL UENZA A&B BY PCR STAT 11/29/2024 1:03 AM CDT from Last 3 Months Results * (ABNORMAL) RSV,SARS-COV-2,INFLUENZA A&B BY PCR (11/29/2024 1:03 AM CDT) FLU A Negative Negative, Error 11/29/2024 1:47 AM CDT [facility] FLU B Negative Negative 11/29/2024 1:47 AM CDT [facility] RESP SYNC VIRUS Negative Negative 11/29/2024 1:47 AM CDT [facility] SARSCOV2 DETECTED(A) (Reference Range for this test is Not Detected) 11/29/2024 1:47 AM CDT [facility] Swab NASOPHARYNGEAL STRUCTURE / Unknown Non-Phlebotomy Collection / Unknown 11/29/2024 1:03 AM CDT 11/29/2024 1:09 AM CDT us Luis Tapia MD MICROBIOLOGY - GENERAL OR DERABLES Final Result [facility] [place] [address] from Last 3 Months Additional Health Concerns Infection Onset Date Last Indicated COVID - 19 Confirmed 11/29/2024 11/29/2024 Care Teams Shellfish Grower Relationship Specialty Start Date End Date Provider, None [place] PCP - General 11/29/24
[2024-12-14 07:31] LABS: Glucose Fasting Gestational 100 mg/dL (>/=95)
[2024-12-14 09:07] LABS: Glucose 1 Hour Gest 182 mg/dL (>/=180)
== END 2024-12-14 07:03 | disposition home or self-care (01) ==
LOC: ANHLAB 07:03
PROVIDERS: Visit Provider Student in an Organized Health Care Education/Training Program
DX: O99.810 Abnormal glucose complicating pregnancy (principal); Z3A.00 Weeks of gestation of pregnancy not specified
CPT/HCPCS: 36415; 82951; 82952

== ENCOUNTER 2024-12-25 14:24 | Observation (INO) | payer OTHER, SELFPAY ==
--- NOTE | ~2024-12-25 | US_ITS ---
LIMITED OBSTETRIC ULTRASOUND Ordering provider: Jose Bolanos MD History: . Bleeding/check placenta . Comparison: None. FINDINGS: MATERNAL CERVIX: Not visualized. cm which is normal (normal is equal to or greater than 3.0 cm). PRESENTATION: Vertex. Longitudinal lie. PLACENTAL LOCATION: Posterior . The placenta is near to the age of the cervix which may indicate plac enta marginalis. Follow-up advised. HEART RATE: 150 bpm (normal is between 110 to 160 bpm). AMNIOTIC FLUID INDEX: Normal. OTHER: Maternal ovaries not visualized. IMPRESSION: Posterior placenta with possibility of placenta marginalis cannot be excluded. Follow-up advised. Reviewed, dictated and finalized at location A.
--- NOTE | 2024-12-25 14:24 | OBADM ---
This patient, Chen Ralph, admitted to the OB room OB Post 116 for observation. Patient/family oriented to hospital policies and general routines including ID bracelet, bed and alarms, visiting hours, pain management, procedures, bathroom and other care routines, personal items, smoking policy, room service/diet, and visiting hours. Patient/Family are encouraged to report perceived risks to care and to ask questions if they do not understand what they are told or what they should do.
--- OUTSIDE RECORDS SUMMARY | 2024-12-25 14:33 | XMS_ITS | Clinical Summary ---
Author Organization [facility] Address [address] [place] [address] Phone Care Team Providers Care Case Finisher Name Role Phone Provider, None Primary Care Provider Unavailabl e Allergies Active Allergy Reactions Criticality Noted Date Comments Latex Hives 11/29/2024 Medications No known medications Encounters Date Type Department Care Team Description 11/29/2024 12:49 AM CDT - 11/29/2024 2:09 AM CDT Emergency [facility] [address] [place] [address] Luis Tapia MD COVID Discharge [...] Negative Negative, Error 11/29/2024 1:47 AM CDT [facility] FLU B Negative Negative 11/29/2024 1:47 AM CDT [facility] RESP SYNC VIRUS Negative Negative 11/29/2024 1:47 AM CDT [facility] SARSCOV2 DETECTED(A) (Reference Range for this test is Not Detected) 11/29/2024 1:47 AM CDT [facility] Swab NASOPHARYNGEAL STRUCTURE / Unknown Non-Phlebotomy Collection / Unknown 11/29/2024 1:03 AM CDT 11/29/2024 1:09 AM CDT us Luis Tapia MD MICROBIOLOGY - GENERAL OR DERABLES Final Result [facility] [address] [place] [address] from Last 3 Months Care Teams Case Finisher Relationship Specialty Start Date End Date Provider, None [place] PCP - General 11/29/24
[2024-12-25 14:45] VITALS: BMI 25.9
[2024-12-25 15:31] VITALS: BP 118/71; PULSE 85
[2024-12-25 15:37] LABS: Basophils Percent Auto 0.3 % (0.2-1.2); Eosinophils Absolute Auto 0.1 K/mm3 (0-0.3); Eosinophils Percent Auto 0.5 % (0-4.4); Hematocrit 32.3 % (37.0-47.0); Hemoglobin 10.6 g/dL (12.0-15.0); Immature Granulocyte Absolute 0.13 K/mm3 (0.00-0.031); Immature Granulocyte Percent A 1.3 % (0-0.5); Lymphocytes Absolute Auto 1.54 K/mm3 (0.9-3.2); Lymphocytes Percent Auto 15.7 % (18.3-44.2); Mean Corpuscular HGB Conc 32.8 g/dl (32-36); Mean Corpuscular Volume 91.5 fl (80-100); Mean Platelet Volume 10.8 fl (7.4-10.4); Monocytes Absolute Auto 0.6 K/mm3 (0.1-0.6); Monocytes Percent Auto 5.7 % (2.6-8.5); Neutrophils Absolute Auto 7.5 K/mm3 (1.3-6.7); Neutrophils Percent Auto 76.5 % (45.5-73.1); Platelet Count Result 181 k/mm3 (150-375); Red Blood Count 3.53 M/mm3 (4.2-5.4); Red Cell Distribution Width 13.7 % (11.5-14.5); White Blood Count 9.8 K/mm3 (4.5-10.0)
[2024-12-25 15:39] LABS: Add Urine Microscopic? NO; Appearance Urine Clear (Clear); Bilirubin Urine Negative (Negative); Blood Urine Negative (Negative); Color Urine Yellow (Yellow); Glucose Urine UA Negative (Negative); Ketones Urine Negative (Negative); Leukocyte Esterase Ur Negative LEU/UL (Negative); Nitrate Urine Negative (Negative); Protein Urine Negative (Negative); Specific Grav Ur 1.004 (1.001-1.035); Urobilinogen Urine 0.2 mg/dL (<2.0)
[2024-12-25 15:45] VITALS: BP 122/71; PULSE 79
[2024-12-25 15:46] LABS: Creatinine Urine 10.1 mg/dL; Total Protein Urine Random 14 mg/dL; Ur Ttl Prot Creatinine Ratio 1.39 mg/mg (0-0.20)
[2024-12-25 15:51] LABS: Alanine Aminotransferase 15 U/L (6-35); Albumin Level 3.5 g/dL (3.5-5.1); Alkaline Phosphatase 84 U/L (38-126); Anion Gap 7 mmol/L (4-12); Aspartate Amino Transferase 22 U/L (14-36); Bilirubin,Total 0.4 mg/dL (0.2-1.3); Blood Urea Nitrogen 11 mg/dL (7-17); Calcium 9.3 mg/dL (8.4-10.2); Carbon Dioxide 21 mmol/L (22-30); Chloride 106 mmol/L (98-107); Estimated Glomerular Filt Rate > 60; Glucose 80 mg/dL (65-110); Potassium 3.6 mmol/L (3.4-5.0); Sodium 134 mmol/L (137-145); Total Protein 6.8 g/dL (6.3-8.2); Uric Acid 3.8 mg/dL (2.5-7.5)
[2024-12-25 16:00] VITALS: BP 119/70; PULSE 88
[2024-12-25 16:15] VITALS: BP 120/70; PULSE 82
--- NOTE | 2024-12-25 17:10 | PC.NURSE ---
Called Dr. Bolanos with pt status. Informed of pt complaining of headache, dizziness and vaginal bleeding after intercourse. Orders received for ultrasound and sterile speculum exam to check for pooling. If ultrasound is WNL and no bleeding is noted on speculum exam, may D/C home.
[2024-12-25 17:25] VITALS: RESP 18; TEMP 36.8
--- NOTE | 2024-12-25 17:27 | PC.NURSE ---
Sterile speculum done. No bleeding noted.
[2024-12-25] MEDS: ACETAMINOPHEN 500 MG TABLET 1000 MG PO (17:30)
--- NOTE | 2025-01-21 11:25 | PM.OBTRLD ---
OB - Triage/Final Diagnosis Visit Information Comments/Additional reasons for admission: I have assessed the risk for this patient, Chen Ralph, and determined that she would benefit from observation care. Evaluation Laboratory results: Laboratory Tests 12/25/24 15:16 WBC 9.8 RBC 3.53 L Hgb 10.6 L Hct 32.3 L MCV 91.5 MCH 30.0 MCHC 32.8 RDW 13.7 Plt Count 181 MPV 10.8 H Immature Gran % (Auto) 1.3 H Neut % (Auto) 76.5 H Lymph % (Auto) 15.7 L [place] % (Auto) 5.7 Eos % (Auto) 0.5 Baso % (Auto) 0.3 Lymph # (Auto) 1.54 [place] # (Auto) 0.6 Eos # (Auto) 0.1 Baso # (Auto) 0.0 Abs Immat Gran (auto) 0.13 H Absolute Neuts (auto) 7.5 H Absolute Nucleated RBC 0.000 Nucleated RBC % 0.0 Sodium 134 L Potassium 3.6 Chloride 106 Carbon Dioxide 21 L Anion Gap 7 BUN 11 Creatinine 0.42 L Estim Creat Clear Calc Not Reportable Estimated GFR > 60 Glucose 80 Uric Acid 3.8 Calcium 9.3 Total Bilirubin 0.4 AST 22 ALT 15 Alkaline Phosphatase 84 Total Protein 6.8 Albumin 3.5 Urine Color Yellow Urine Appearance Clear Urine pH 7.0 Ur Specific [place] 1.004 Urine Protein Negative Urine Glucose (UA) Negative Urine Ketones Negative Ur Blood (Man) Negative Urine Nitrate Negative Urine Bilirubin Negative Urine Urobilinogen 0.2 Ur Leukocyte Esterase Negative U Random Total Protein 14 Urine Creatinine 10.1 Protein/Creat Ratio 2 1.39 H Final Diagnosis (1) Spotting affecting : Code(s): O26.859 - Spotting complicating , unspecified trimester Status: Acute
== END 2024-12-25 19:15 | disposition home or self-care (01) ==
PROVIDERS: Admitting Provider Obstetrics & Gynecology; Visit Provider Obstetrics & Gynecology
DX: O26.853 Spotting complicating pregnancy, third trimester (principal); Z3A.31 31 weeks gestation of pregnancy
CPT/HCPCS: 36415; 76815; 80053; 81003; 82570; 84156; 84550; 85025; 87086; A9270; G0378; G0379

== ENCOUNTER 2025-01-15 09:20 | Outpatient (RCR) | payer OTHER, SELFPAY ==
[2025-01-15 10:16] VITALS: BP 112/65
== END 2025-02-20 10:57 | disposition home or self-care (01) ==
LOC: ANHOBOP 09:20
PROVIDERS: Visit Provider Student in an Organized Health Care Education/Training Program
DX: O24.913 Unspecified diabetes mellitus in pregnancy, third trimester (principal); Z3A.34 34 weeks gestation of pregnancy
CPT/HCPCS: 59025

== ENCOUNTER 2025-01-17 13:01 | Outpatient (CLI) | payer OTHER, SELFPAY ==
[2025-01-17] VITALS (11 sets, daily range): BP systolic 115–125; BP diastolic 72–82; PULSE 85–94
--- OUTSIDE RECORDS SUMMARY | 2025-01-17 13:09 | XMS_ITS | Clinical Summary ---
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
--- OUTSIDE RECORDS SUMMARY | 2025-01-17 13:09 | XMS_ITS | Clinical Summary ---
Author Organization [facility] Address [address] [place] [address] Phone Care Team Providers Care Instrument Repairer Steam Plant Name Role Phone Provider, None Primary Care Provider Unavailabl e Allergies Active Allergy Reactions Criticality Noted Date Comments Latex Hives 11/29/2024 Medications No known medications Encounters Date Type Department Care Team Description 11/29/2024 12:49 AM CDT - 11/29/2024 2:09 AM CDT Emergency [facility] 1 [place] [address] Luis Tapia MD COVID Discharge [...] Negative Negative, Error 11/29/2024 1:47 AM CDT [facility] FLU B Negative Negative 11/29/2024 1:47 AM CDT [facility] RESP SYNC VIRUS Negative Negative 11/29/2024 1:47 AM CDT [facility] SARSCOV2 DETECTED(A) (Reference Range for this test is Not Detected) 11/29/2024 1:47 AM CDT [facility] Swab NASOPHARYNGEAL STRUCTURE / Unknown Non-Phlebotomy Collection / Unknown 11/29/2024 1:03 AM CDT 11/29/2024 1:09 AM CDT us Luis Tapia MD MICROBIOLOGY - GENERAL OR DERABLES Final Result [facility] [address] [place] [address] from Last 3 Months Care Teams Instrument Repairer Steam Plant Relationship Specialty Start Date End Date Provider, None [place] PCP - General 11/29/24
[2025-01-17 14:00] LABS: Hematocrit 30.9 % (37.0-47.0); Hemoglobin 10.1 g/dL (12.0-15.0); Immature Granulocyte Percent A 2.0 % (0-0.5); Lymphocytes Absolute Auto 1.58 K/mm3 (0.9-3.2); Mean Corpuscular HGB Conc 32.7 g/dl (32-36); Mean Corpuscular Hemoglobin 28.6 pg (26-34); Mean Corpuscular Volume 87.5 fl (80-100); Nucleated Red Blood Cells Absolute Auto 0.000 K/mm3 (0.0-0.012); Nucleated Red Blood Cells Perc 0.0 % (0.0-0.2); Platelet Count Result 180 k/mm3 (150-375); Red Blood Count 3.53 M/mm3 (4.2-5.4); White Blood Count 9.5 K/mm3 (4.5-10.0)
[2025-01-17 14:12] LABS: Add Urine Microscopic? YES; Appearance Urine Clear (Clear); Glucose Urine UA Negative (Negative); Leukocyte Esterase Ur Trace LEU/UL (Negative); Nitrate Urine Negative (Negative); Non Pathogenic Casts 0-2; Specific Grav Ur 1.005 (1.001-1.035)
[2025-01-17 14:18] LABS: Total Protein Urine Random 13 mg/dL; Ur Ttl Prot Creatinine Ratio 0.80 mg/mg (0-0.20)
[2025-01-17 14:19] LABS: Alanine Aminotransferase 21 U/L (6-35); Albumin Level 3.2 g/dL (3.5-5.1); Alkaline Phosphatase 107 U/L (38-126); Anion Gap 9 mmol/L (4-12); Aspartate Amino Transferase 22 U/L (14-36); Bilirubin,Total 0.3 mg/dL (0.2-1.3); Blood Urea Nitrogen 9 mg/dL (7-17); Calcium 9.1 mg/dL (8.4-10.2); Carbon Dioxide 17 mmol/L (22-30); Chloride 108 mmol/L (98-107); Estimated Glomerular Filt Rate > 60; Glucose 119 mg/dL (65-110); Potassium 3.5 mmol/L (3.4-5.0); Sodium 134 mmol/L (137-145); Total Protein 6.4 g/dL (6.3-8.2); Uric Acid 4.4 mg/dL (2.5-7.5)
[2025-01-17] MEDS: ACETAMINOPHEN 500 MG TABLET 1000 MG PO (14:37)
== END 2025-01-17 16:05 | disposition home or self-care (01) ==
LOC: ANHOBOP 13:08 → ANHOBPP 13:21
PROVIDERS: Obstetrics & Gynecology; Visit Provider Student in an Organized Health Care Education/Training Program
DX: O16.9 Unspecified maternal hypertension, unspecified trimester (principal); O26.899 Other specified pregnancy related conditions, unspecified trimester; R51.9 Headache, unspecified; Z3A.00 Weeks of gestation of pregnancy not specified
CPT/HCPCS: 36415; 59025; 80053; 81001; 82570; 84156; 84550; 85025; 99199; A9270

== ENCOUNTER 2025-01-18 17:36 | Outpatient (CLI) | payer OTHER, SELFPAY ==
[2025-01-18 17:36] VITALS: BMI 26.0
--- OUTSIDE RECORDS SUMMARY | 2025-01-18 17:57 | XMS_ITS | Clinical Summary ---
Author Organization [facility] Address [address] [place] [address] Phone Care Team Providers Care Rv Technician Name Role Phone Provider, None Primary Care Provider Unavailabl e Allergies Active Allergy Reactions Criticality Noted Date Comments Latex Hives 11/29/2024 Medications No known medications Encounters Date Type Department Care Team Description 11/29/2024 12:49 AM CDT - 11/29/2024 2:09 AM CDT Emergency [facility] 1 [place] [address] Luis Tapia MD COVID Discharge [...] Negative Negative, Error 11/29/2024 1:47 AM CDT [facility] FLU [facility] Negative Negative 11/29/2024 1:47 AM CDT [facility] RESP SYNC VIRUS Negative Negative 11/29/2024 1:47 AM CDT [facility] SARSCOV2 DETECTED(A) (Reference Range for this test is Not Detected) 11/29/2024 1:47 AM CDT [facility] Swab NASOPHARYNGEAL STRUCTURE / Unknown Non-Phlebotomy Collection / Unknown 11/29/2024 1:03 AM CDT 11/29/2024 1:09 AM CDT us Luis Tapia MD MICROBIOLOGY - GENERAL OR DERABLES Final Result [facility] [address] [place] [address] from Last 3 Months Care Teams Rv Technician Relationship Specialty Start Date End Date Provider, None [place] PCP - General 11/29/24
--- OUTSIDE RECORDS SUMMARY | 2025-01-18 17:57 | XMS_ITS | Clinical Summary ---
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
[2025-01-18 18:57] LABS: Total Volume 24 Hour Urine 3600 ml
[2025-01-18 19:03] LABS: Total Protein Urine Random 11 mg/dL
[2025-01-18 19:04] LABS: Creatinine Clearance Urine 238.5 ml/min (75-125); Serum Creat 0.44
[2025-01-18 19:07] LABS: Specific Gravity Ur 1.010
[2025-01-18 19:08] LABS: Total Protein Urine 24 Hr 396 mg/24hr (28-141)
== END 2025-01-18 17:37 | disposition home or self-care (01) ==
LOC: ANHOBOP 17:55
PROVIDERS: Visit Provider Obstetrics & Gynecology
DX: Z34.90 Encounter for supervision of normal pregnancy, unspecified, unspecified trimester (principal); Z3A.00 Weeks of gestation of pregnancy not specified
CPT/HCPCS: 81050; 82575; 84156

== ENCOUNTER 2025-02-10 04:48 | Inpatient (IN) | payer OTHER, SELFPAY ==
[2025-02-10] VITALS (164 sets, daily range): BP systolic 90–146; BP diastolic 13–108; PULSE 51–191; RESP 18; TEMP 36.4–37; O2SAT 86–100; BMI 27.0
--- OUTSIDE RECORDS SUMMARY | 2025-02-10 05:11 | XMS_ITS | Clinical Summary ---
Author Organization [facility] Address [address] [place] [address] Phone Care Team Providers Care Civil Preparedness Coordinator Name Role Phone Provider, None Primary Care Provider Unavailabl e Allergies Active Allergy Reactions Criticality Noted Date Comments Latex Hives 11/29/2024 Medications No known medications Encounters Date Type Department Care Team Description 11/29/2024 12:49 AM CDT - 11/29/2024 2:09 AM CDT Emergency [facility] 1 [place] [address] Luis Tapia MD COVID Discharge [...] Negative Negative, Error 11/29/2024 1:47 AM CDT [facility] FLU [facility] Negative Negative 11/29/2024 1:47 AM CDT [facility] RESP SYNC VIRUS Negative Negative 11/29/2024 1:47 AM CDT [facility] SARSCOV2 DETECTED(A) (Reference Range for this test is Not Detected) 11/29/2024 1:47 AM CDT [facility] Swab NASOPHARYNGEAL STRUCTURE / Unknown Non-Phlebotomy Collection / Unknown 11/29/2024 1:03 AM CDT 11/29/2024 1:09 AM CDT us Luis Tapia MD MICROBIOLOGY - GENERAL OR DERABLES Final Result [facility] [address] [place] [address] from Last 3 Months Care Teams Civil Preparedness Coordinator Relationship Specialty Start Date End Date Provider, None [place] PCP - General 11/29/24
--- OUTSIDE RECORDS SUMMARY | 2025-02-10 05:11 | XMS_ITS | Clinical Summary ---
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
[2025-02-10 05:21] LABS: OBXCEM ROM Plus Positive (Negative)
[2025-02-10 06:08] LABS: Hematocrit 31.2 % (37.0-47.0); Hemoglobin 10.5 g/dL (12.0-15.0); Immature Granulocyte Percent A 1.6 % (0-0.5); Lymphocytes Absolute Auto 1.95 K/mm3 (0.9-3.2); Mean Corpuscular HGB Conc 33.7 g/dl (32-36); Mean Corpuscular Hemoglobin 29.0 pg (26-34); Mean Corpuscular Volume 86.2 fl (80-100); Nucleated Red Blood Cells Absolute Auto 0.000 K/mm3 (0.0-0.012); Nucleated Red Blood Cells Perc 0.0 % (0.0-0.2); Platelet Count Result 180 k/mm3 (150-375); Red Blood Count 3.62 M/mm3 (4.2-5.4); White Blood Count 10.7 K/mm3 (4.5-10.0)
[2025-02-10 06:32] LABS: Alanine Aminotransferase 15 U/L (6-35); Albumin Level 3.2 g/dL (3.5-5.1); Alkaline Phosphatase 148 U/L (38-126); Anion Gap 6 mmol/L (4-12); Aspartate Amino Transferase 22 U/L (14-36); Bilirubin,Total 0.4 mg/dL (0.2-1.3); Blood Urea Nitrogen 13 mg/dL (7-17); Calcium 9.1 mg/dL (8.4-10.2); Carbon Dioxide 17 mmol/L (22-30); Chloride 105 mmol/L (98-107); Estimated Glomerular Filt Rate > 60; Glucose 87 mg/dL (65-110); Potassium 3.5 mmol/L (3.4-5.0); Sodium 128 mmol/L (137-145); Total Protein 6.7 g/dL (6.3-8.2)
[2025-02-10 06:59] LABS: Syphilis IgG/IgM Antibody Non-Reactive (Nonreactive)
[2025-02-10] MEDS: fentaNYL CITRATE INJ (*CRX) 100 MCG/2 ML VIAL 50 MCG IV PUSH ×2 (10:51→11:44)
[2025-02-10] MEDS: LACTATED RINGERS 1,000 ML 125 ML IV CONT (12:06)
[2025-02-10] MEDS: OXYTOCIN 30 UNITS/NS 500 ML 30 UNITS/500 ML BAG IV CONT (12:06)
[2025-02-10] MEDS: fentaNYL CITRATE INJ (*CRX) 100 MCG/2 ML VIAL IV PUSH (13:06)
--- NOTE | 2025-02-10 14:06 | WPDANESEPPF ---
Anes - Initial Pre Proc Eval Date/Time: 02/10/25 14:06 Surgeon: Pardeep Smith MD Pre Op Diagnosis: leaking Patient Data Age: 24 Gender: F Height: Weight: Last Vital Signs Temp 36.5 C 02/10/25 07:39 Pulse 72 02/10/25 14:06 BP 134/77 02/10/25 14:06 Pulse Ox 100 02/10/25 14:05 Allergies Allergy/AdvReac Type Severity Reaction Status Date / Time fluoxetine Allergy Severe Other Verified 02/09/25 08:05 latex Allergy Hives Verified 02/09/25 08:05 Home Medications ?Medication ?Instructions ?Recorded ?Confirmed ?Type vits no.126-ferrous fum 1 tablet PO DAILY 07/16/24 02/09/25 History 28 mg iron-folic acid 800 mcg tablet (Classic ) ondansetron 8 mg disintegrating 8 mg PO Q8H #30 tabs 10/26/24 02/09/25 Rx tablet blood-glucose meter (OneTouch #1 ea 12/14/24 02/09/25 Rx Verio Flex Meter) lancets 30 gauge (Easy Touch #200 ea 12/14/24 02/09/25 Rx Safety Lancets) hmcbanmwiy-ociyazjerxbyq-femxacag 1 cap PO Q6H PRN pain #30 caps 12/29/24 02/09/25 Rx 50 mg-300 mg-40 mg capsule (Fioricet) glucagon 3 mg/actuation nasal 3 mg intranasal PRN Hypoglycemia 12/29/24 02/09/25 History spray (Baqsimi) insulin glargine 100 unit/mL (3 6 unit subcut HS 12/29/24 02/09/25 History mL) subcutaneous pen (Lantus Solostar U-100 Insulin) blood sugar diagnostic (OneTouch #100 strips 01/04/25 02/09/25 Rx Verio test strips) famotidine 20 mg tablet (Acid 20 mg PO DAILY 01/17/25 02/09/25 History Controller) diphenhydramine HCl 25 mg capsule 25 mg PO HS 01/28/25 02/09/25 History (Allergy (diphenhydramine)) Laboratory Tests 02/10/25 02/10/25 02/10/25 05:10 06:03 06:05 WBC 10.7 H K/mm3 (4.5-10.0) RBC 3.62 L M/mm3 (4.2-5.4) Hgb 10.5 L g/dL (12.0-15.0) Hct 31.2 L % (37.0-47.0) MCV 86.2 fl (80-100) MCH 29.0 pg (26-34) MCHC 33.7 g/dl (32-36) RDW 14.5 % (11.5-14.5) Plt Count 180 k/mm3 (150-375) MPV 11.8 H fl (7.4-10.4) Immature Gran % (Auto) 1.6 H % (0-0.5) Neut % (Auto) 71.5 % (45.5-73.1) Lymph % (Auto) 18.2 L % (18.3-44.2) [place] % (Auto) 7.5 % (2.6-8.5) Eos % (Auto) 0.7 % (0-4.4) Baso % (Auto) 0.5 % (0.2-1.2) Lymph # (Auto) 1.95 K/mm3 (0.9-3.2) [place] # (Auto) 0.8 H K/mm3 (0.1-0.6) Eos # (Auto) 0.1 K/mm3 (0-0.3) Baso # (Auto) 0.1 K/mm3 (0.0-0.1) Abs Immat Gran (auto) 0.17 H K/mm3 (0.00-0.031) Absolute Neuts (auto) 7.7 H K/mm3 (1.3-6.7) Absolute Nucleated RBC 0.000 K/mm3 (0.0-0.012) Nucleated RBC % 0.0 % (0.0-0.2) Sodium 128 L mmol/L (137-145) Potassium 3.5 mmol/L (3.4-5.0) Chloride 105 mmol/L (98-107) Carbon Dioxide 17 L mmol/L (22-30) Anion Gap 6 mmol/L (4-12) BUN 13 mg/dL (7-17) Creatinine 0.58 L mg/dL (0.7-1.0) Estim Creat Clear Calc Not Reportable Estimated GFR > 60 (59 - ) Glucose 87 mg/dL (65-110) POC Capillary Glucose Calcium 9.1 mg/dL (8.4-10.2) Total Bilirubin 0.4 mg/dL (0.2-1.3) AST 22 U/L (14-36) ALT 15 U/L (6-35) Alkaline Phosphatase 148 H U/L (38-126) Total Protein 6.7 g/dL (6.3-8.2) Albumin 3.2 L g/dL (3.5-5.1) Membranes Rupture Rom plus positive (Negative) Syphilis IgG/IgM Ab Non-reactive (Nonreactive) Blood Type A Positive Antibody Screen Negative 02/10/25 10:09 WBC RBC Hgb Hct MCV MCH MCHC RDW Plt Count MPV Immature Gran % (Auto) Neut % (Auto) Lymph % (Auto) [place] % (Auto) Eos % (Auto) Baso % (Auto) Lymph # (Auto) [place] # (Auto) Eos # (Auto) Baso # (Auto) Abs Immat Gran (auto) Absolute Neuts (auto) Absolute Nucleated RBC Nucleated RBC % Sodium Potassium Chloride Carbon Dioxide Anion Gap BUN Creatinine Estim Creat Clear Calc Estimated GFR Glucose POC Capillary Glucose 126 H mg/dl (65-105) Calcium Total Bilirubin AST ALT Alkaline Phosphatase Total Protein Albumin Membranes Rupture Syphilis IgG/IgM Ab Blood Type Antibody Screen Patient hx anesthesia problems: none Family hx anesthesia problems: none Results Review: All pre-operative results and documents have been reviewed as part of the pre-operative evaluation. [facility] Past Medical History Medical History Abnormal glucose tolerance in Suppression of menses Pancreatitis Polysubstance abuse History of suicide attempt Anxiety Depression Peptic ulcer disease Surgical History Surgical History History of esophagogastroduodenoscopy Family History Family History Other Breast cancer Father Hypertension Mother Hypertension Heart attack Social History Social History Smoking packs per day: 0.5 Smoking cigarettes per day: 10.0 Years smoked: 4 Smoking pack-years: 2.00 Smoking status: Current some day smoker Second hand tobacco smoke exposure: No Additional smoking assessment comments: Currently vapes Alcohol intake: former Substance use: former Substance use type: prescription drug Do You Feel Safe in your Home?: Yes Lack of Transportation: No Lack of Food: Never True Current Housing: I Have Housing Concerned About Future Housing: No Difficulty Paying Gas/Electric Bills: No Difficulty Paying for Meds: No Currently Unemployed: No Education: High School Diploma/GED Difficulty w/ Childcare or Family Care: No Living arrangements: with family Occupation/Education: occupation Additional occupation/education comments: [employer] Gender identity (if verbalized by the patient): Female Sexual Orientation (if Verbalized by the Patient): Straight or Heterosexual Anes - Eval Final PreProcedure Day of Procedure 02/10/25 14:06 Patient weight: overweight Heart: regular rate and rhythm Lungs: clear to auscultation Neurological: alert and oriented ASA classification: III Emergent: no Anesthetic plan: proceed Anesthesia type and monitoring: regional epidural and standard monitoring Results Review: All pre-operative results and documents have been reviewed as part of the pre-operative evaluation. Informed Consent: The patient's anesthetic plan and its attendant risks and benefits were discussed with the patient/family/POA. Questions were solicited and answers provided to the satisfaction of the patient/family/POA.
--- NOTE | 2025-02-10 16:10 | WPDHPUPDATE1 ---
History and Physical Update Update Date/Time: 02/10/25 16:10 24 yo who presents at 38w0d after SROM. Her is complicated by gestational diabetes on 6 units of insulin nightly. Her blood sugars have been well controlled. She has been compliant with testing. History and Physical has been reviewed, including an updated exam of the patient. There are NO changes in the patient's condition. Risks, benefits, and alternatives have been discussed and questions answered. Patient agrees to proceed with procedure. -GDM- 6 units of insulin lightly - Depression- no meds, established w/ therapist - h/o suicide attempts - Chronic MARTINEZ admit to L&D Routine admission orders Rh+ GBS neg Patient given 1 dose of Buccal misoprostol, will augment with Pitocin after Continuous EFM Patient have epidural as needed
--- NOTE | 2025-02-10 19:40 | PM.OBPRVD ---
OB - Vaginal Delivery Note Procedure Delivery date: 02/10/25 Events: Gestational Diabetes Induction method: None Delivery augmentation: Pitocin Delivery monitor: External FHT and Internal Uterine Route of delivery: Episiotomy description: None Laceration Description: Perineal - 1st Degree and Labial (right) Delivery repair: vicryl Specimen: No Quantitative Blood Loss (ml): 150 Anesthesia type: Epidural Disposition: Floor Complications: No immediate complications Narrative: Patient pushed for a spontaneous vaginal delivery. A nuchal cord x 2 was noted and reduced on the perineum. The fetus was delivered atraumatically and placed on the maternal abdomen. The cord was clamped and cut after 1 minute of life. The cord was double clamped and cut and a segment of cord was collected for cord gases. Cord blood was collected for blood type and Coomb's testing. The placenta delivered spontaneously and was noted to be intact. The perineum was inspected and a first degree perineal laceration and a right labial laceration were noted. Both were repaired with 3-0 vicryl in a running fashion. The uterus palpated firm with good hemostasis noted. Infant and mom were stable in the delivery room. Patient was thought to have an accessory placental lobe. Bedside US was performed with no concern for retained placenta. Baby Date of : 02/10/25 Time of : 19:26 Gestational Age by Date: 38 Infant gender: Male presentation: vertex position: Right Occiput Anterior Placenta delivery description: Spontaneous Cord Vessel Description: 3 Vessels and Nuchal Cord (x2) score one minute: 9 score five minutes: 9
[2025-02-10] MEDS: OXYTOCIN 30 UNITS/NS 500 ML 30 UNITS/500 ML BAG 125 UNITS IV CONT (20:00)
[2025-02-10] MEDS: IBUPROFEN 600 MG TABLET PO (20:37)
[2025-02-10] MEDS: ACETAMINOPHEN 325 MG TABLET 650 MG PO (20:37)
--- NOTE | 2025-02-10 20:45 | LDADM ---
This patient, Chen Ralph, was admitted to Labor/Delivery/Recovery 104 on 02/10/25 at 04:48. Plans for labor, pain management and were discussed with patient. Patient/family oriented to hospital policies and general routines including ID bracelet, bed and alarms, visiting hours, pain management, procedures, bathroom and other care routines, personal items, smoking policy, room service/diet and guest tray routines, infant security routines, and visiting hours. Patient/Family are encouraged to report perceived risks to care and to ask questions if they do not understand what they are told or what they should do. See OBIX for further documentation.
[2025-02-11 00:24] VITALS: BP 125/77; PULSE 86; RESP 18; TEMP 37.1; O2SAT 98
[2025-02-11] MEDS: IBUPROFEN 600 MG TABLET PO ×3 (02:49→15:34)
[2025-02-11] MEDS: ACETAMINOPHEN 325 MG TABLET 650 MG PO ×3 (02:49→15:34)
[2025-02-11 04:00] VITALS: BP 119/94; PULSE 79; RESP 14; TEMP 37.1; O2SAT 99
[2025-02-11 05:07] LABS: Hematocrit 29.3 % (37.0-47.0); Hemoglobin 9.0 g/dL (12.0-15.0)
[2025-02-11 07:10] VITALS: BP 143/97; PULSE 82; RESP 16; TEMP 36.5; O2SAT 100
--- NOTE | 2025-02-11 07:11 | PM.OBPNVD ---
OB - PN: Subj Subjective Date/time seen: 02/11/25 07:11 Narrative: PPD#1 Chen reports doing well today. 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 Her pain is controlled. She is tolerating regular diet, voiding, passing gas, and ambulating without issues. She is breast feeding. She would like her son circumcised. OB - PN: Obj Data Labs 02/11/25 03:55 02/10/25 06:05 Labs: Laboratory Results - last 24 hr 02/10/25 02/10/25 02/10/25 10:09 16:54 17:12 Hgb Hct POC Capillary Glucose 126 H 60 L 75 02/10/25 02/11/25 17:58 03:55 Hgb 9.0 L Hct 29.3 L POC Capillary Glucose 93 OB - PN A/P Assessment and Plan (1) Normal vaginal delivery of first : Code(s): O80 - Encounter for full-term uncomplicated delivery Status: Acute Plan day: 1 Plan: routine care Comments: - PO pain meds - Regular diet - Ambulation and hydration encouraged - Continue putting baby to breast q2-3hr - Anemia: pt to let us know if she would like venofer 400mg IV once vs oral iron Time Spent With Patient Time: Total time spent is greater than 50% in coordination of care (as documented) at patient's floor/unit and/or counseling patient: Review of Systems Constitutional: Constitutional: Denies chills, Denies fever(s) and Denies headache(s) Eyes: Eyes: Denies change in vision ENT: Denies dizziness and Denies headache(s) Cardiovascular: Cardiovascular: Denies chest pain, Denies palpitations and Denies dyspnea Respiratory: Respiratory: Denies cough and Denies dyspnea Gastrointestinal: Gastrointestinal: Denies nausea and Denies vomiting Neurologic: Denies dizziness and Denies headache(s) Endocrine: Endocrine: Denies palpitations Exam Const: General: cooperative, comfortable and no acute distress Orientation/consciousness: patient oriented x3 Resp: Effort & Inspection: normal respiratory effort Auscultation: clear to auscultation bilaterally Cardio: Rate: regular rate GI: Inspection: non-distended GI Palp: No abdominal tenderness and Yes Soft to palpation Auscultation: normal bowel sounds : Other: fundus firm Skin: General skin exam: normal color Neuro: General: patient oriented x3 Extrem: General: normal to inspection Psych: Appearance: grossly normal Affect: normal affect Attitude: cooperative
[2025-02-11 08:00] VITALS: PULSE 77; RESP 16; O2SAT 100
[2025-02-11] MEDS: MULTIVIT/MIN/PREN/FOL AC/IRON TABLET 1 TAB PO (08:37)
[2025-02-11] MEDS: DOCUSATE SODIUM 100 MG CAPSULE PO ×2 (08:37→17:37)
[2025-02-11 12:15] VITALS: BP 129/84; PULSE 77; RESP 16; TEMP 36.7; O2SAT 100
--- NOTE | 2025-02-11 13:44 | PC.NURSE ---
1210. Met with patient to assess and discuss needs related to feeding. Mother states it is her intention to pump and bottle feed when she gets home, but she plans to breastfeed while she is here in the hospital. Mom is currently using a nipple shield due to flat nipples. Mom requested a hand pump to use on her own in between feedings. Mom does have a history of depression but is currently not on any medication. Encouraged mother to breastfeed 8-12 times in 24 hours (approximately every 2-3 hours), watching for early feeding cues. If is sleepy, unwrap and place baby skin to skin. Discussed signs that is effectively , i.e. sufficient voids and stools, jaundice within normal limits, <10% weight loss from . Mother educated on milk production, supply and demand, and expectations for in the immediate period. Encouraged feeding on demand and feeding durations of 15 minutes or greater. Discussed breast/nipple care with good hand hygiene, signs of a correct latch, listening for swallows and documenting feedings on the feeding sheet. Mother instructed to call for assistance if infant will not feed every 3 hours, if there is discomfort with , or if mother has any other questions or concerns. resources provided including the Mom and Baby Guide and name/number on communication board. Mother verbalized understanding. Updated patient?s primary RN with education provided.?
--- NOTE | 2025-02-11 14:09 | WPDANLDPN2 ---
Anes-Prog Note L&D Date/Time: 02/11/25 14:09 Comfortable throughout: labor and delivery Neuraxial method: epidural Epidural/Spinal procedure site: clean & non-tender Neuro status: Neuro function grossly intact. Cardiovascular status: normal Respiratory status: normal Airway patency: baseline Mental status: baseline Post-Op hydration status: normal Vital Signs: Last Vital Signs Temp 36.7 C 02/11/25 12:15 Pulse 77 02/11/25 12:15 Resp 16 02/11/25 12:15 BP 129/84 02/11/25 12:15 Pulse Ox 100 02/11/25 12:15 O2 Del Method Room Air 02/11/25 08:00 Pain score (VAS): 1 I/O: Intake & Output 02/10/25 02/11/25 02/11/25 23:59 07:59 15:59 Output Total 800 Balance -800 Post-procedural complaints: none Patient feedback: Patient satisfied with anesthetic care.
[2025-02-11 19:49] VITALS: BP 121/63; PULSE 83; RESP 18; TEMP 37.1; O2SAT 99
[2025-02-12] MEDS: IBUPROFEN 600 MG TABLET PO (00:34)
[2025-02-12] MEDS: ACETAMINOPHEN 325 MG TABLET 650 MG PO (00:35)
--- NOTE | 2025-02-12 06:16 | PM.OBDSVD ---
DS: Admitting Diagnosis Discharge Date 02/12/25 Admitting Diagnosis SROM [id number] DS: Discharge Diagnosis Discharge Diagnosis (1) Normal vaginal delivery of first : Code(s): O80 - Encounter for full-term uncomplicated delivery Status: Acute OB - DS: Summary OB Procedures : NST and Ultrasound OB Procedures Intrapartum: Spontaneous Vag Delivery OB Procedures: : None Peripartum Data Infant Delivery Method: Natural Vaginal Laceration Description: Perineal - 1st Degree and Labial (right) Episiotomy description: None complications: none Grants 1: Gender: Male Disposition of : home Status at Discharge Functional status at discharge: independent ambulation Overall status at discharge: patient is back to baseline Time Spent with Patient Time attestation: Total time spent providing and/or coordinating discharge services: Exam Const: General: cooperative, healthy appearing, comfortable and no acute distress Orientation/consciousness: patient oriented x3 Resp: Effort & Inspection: normal respiratory effort Auscultation: clear to auscultation bilaterally Cardio: Rate: regular rate GI: Inspection: non-distended GI Palp: No abdominal tenderness and Yes Soft to palpation Auscultation: normal bowel sounds : Other: fundus firm Skin: General skin exam: normal color Neuro: General: patient oriented x3 Extrem: General: normal to inspection Psych: Appearance: grossly normal Affect: normal affect Attitude: cooperative DS: Data Data Completed and Pending Labs on day of discharge: Labs from last 24 hours 02/11/25 02/10/25 02/10/25 03:55 17:58 17:12 Hgb 9.0 L Hct 29.3 L POC Capillary Glucose 93 75 02/10/25 16:54 Hgb Hct POC Capillary Glucose 60 L Discharge Plan Discharge Attending physician on discharge: Jaz Merino Discharging Clinician: Jaz Merino Anticipated Discharge Date/Time: 02/12/25 10:00 Patient Disposition: Home Activity: may shower and pelvic rest Diet: regular Patient Instructions: Antibiotic Form Patient Language: Kinyarwanda Stand Alone Forms: General Discharge Information Follow-up/Referrals: Pardeep Smith MD [Physician] - 4 Weeks Discharge Medications: New acetaminophen 325 mg Tablet 650 mg PO Q6H PRN (Reason: Mild Pain (1-3) Or Headache) Qty: 60 0RF docusate sodium 100 mg Capsule 100 mg PO BID PRN (Reason: Constipation) Qty: 90 0RF polysaccharide iron complex 150 mg iron Capsule 150 mg PO BIDWM Qty: 90 1RF ibuprofen 600 mg Tablet 600 mg PO Q6H PRN (Reason: Cramping) Qty: 40 0RF Continued Classic 28 mg iron- 800 mcg tablet 1 tablet PO DAILY Baqsimi 3 mg/actuation spray,non-aerosol 3 mg intranasal PRN elvtynydtz-repihechztwfr-jdja [Fioricet] 50-300-40 mg capsule 1 cap PO Q6H PRN (Reason: pain) Qty: 30 0RF famotidine [Acid Controller] 20 mg tablet 20 mg PO DAILY diphenhydramine HCl [Allergy (diphenhydramine)] 25 mg capsule 25 mg PO HS ondansetron 8 mg tablet,disintegrating 8 mg PO Q8H Qty: 30 1RF Discontinued insulin glargine [Lantus Solostar U-100 Insulin] 100 unit/mL (3 mL) insulin pen 6 unit subcut HS (DME) blood-glucose meter [OneTouch Verio Flex meter] Misc See Rx Instructions .Route Qty: 1 0RF Rx Instructions: As directed (DME) lancets [Easy Touch Safety Lancets] 30 gauge misc See Rx Instructions .Route Qty: 200 3RF Rx Instructions: patient to test 4xs a day (DME) OneTouch Verio test strips Strip See Rx Instructions .ROUTE .COMPLEX Qty: 100 0RF Dose Instruction: TEST FOUR TIMES DAILY, FASTING AND 1 HR AFTER EVERY MEAL Rx Instructions: TEST FOUR TIMES DAILY, FASTING AND 1 HR AFTER EVERY MEAL Date of admission: 02/10/25 04:48 Primary Care Provider: UNKNOWN,DOCTOR Admitting Provider: Pardeep Smith Attending physician on admission: Pardeep Smith Condition: Stable
[2025-02-12 08:45] VITALS: BP 120/86; PULSE 99; RESP 16; TEMP 36.8; O2SAT 100
[2025-02-12] MEDS: DOCUSATE SODIUM 100 MG CAPSULE PO (09:00)
[2025-02-12] MEDS: MULTIVIT/MIN/PREN/FOL AC/IRON TABLET 1 TAB PO (09:00)
[2025-02-13 09:33] VITALS: BP 129/85; PULSE 78; RESP 18; TEMP 36.8; O2SAT 100
== END 2025-02-12 12:55 | disposition home or self-care (01) | DRG 807 ==
LOC: ANHOB2 02-11 19:29 → ANHLDR 02-15 09:29
PROVIDERS: Admitting Provider Student in an Organized Health Care Education/Training Program; Visit Provider Obstetrics & Gynecology
DX: O24.424 Gestational diabetes mellitus in childbirth, insulin controlled (principal); Z37.0 Single live birth; O70.0 First degree perineal laceration during delivery; O69.1XX0 Labor and delivery complicated by cord around neck, with compression, not applicable or unspecified; O77.0 Labor and delivery complicated by meconium in amniotic fluid; Z3A.38 38 weeks gestation of pregnancy
CPT/HCPCS: 36415; 80053; 82948; 84112; 85014; 85018; 85025; 86593; 86850; 86900; 86901; A9270; J2590; J2795; J3010; J7120

== ENCOUNTER 2025-03-24 16:23 | Outpatient (CLI) | payer OTHER, SELFPAY ==
--- OUTSIDE RECORDS SUMMARY | 2025-03-24 16:26 | XMS_ITS | Clinical Summary ---
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
--- OUTSIDE RECORDS SUMMARY | 2025-03-24 16:26 | XMS_ITS | Clinical Summary ---
Author Organization [facility] Address [address] [place] [address] Phone Care Team Providers Care Commercial Representative Name Role Phone Provider, None Primary Care Provider Unavailabl e Allergies Active Allergy Reactions Criticality Noted Date Comments Latex Hives 11/29/2024 Medications No known medications Social History Tobacco Use Types Packs/Day Years [...] CDT Plan of Treatment Not on file Insurance [facility] Care Teams Commercial Representative Relationship Specialty Start Date End Date Provider, None [place] PCP - General 11/29/24
--- OUTSIDE RECORDS SUMMARY | 2025-03-24 16:26 | XMS_ITS | Clinical Summary ---
Author Organization [facility] Address [address] [place] [address] Care Team Providers Care Burial Vault Setter Name Role Phone Mike Ugarte MD Unavailable [phone] Mike Ugarte MD Primary Care Provider Jessica Recinos PT Unavailable Unavailable Pineda, Isabel Johnston DIRECTOR OF REHABILITATION AND WELLNESS Unavailable Brandi Lambert PT Unavailable Unavailab le Allergies [...] on file Legal Sex Female 6:10 AM BOBBIN PAINTER Gender Identity Not on file Sexual Orientation Not on file Obstetrics History Para Term AB IAB SAB Ectopic Multiple Livin g Live Births 1 Date Outcome GA Total Labor Labor/2nd/3rd Weight Sex Type Anes PTL Christine A1 A5 Name Clin Current Last Filed Vital Signs Vital Sign Reading Time Taken Comments Blood Pressure 122/72 08/10/2024 8:37 AM BOBBIN PAINTER Pulse 100 08/10/2024 8:37 AM BOBBIN PAINTER Temperature 36.9 C (98.5 F) 08/10/2024 8:37 AM BOBBIN PAINTER Respiratory Rate 19 08/10/2024 8:37 AM BOBBIN PAINTER Oxygen Saturation 97% 08/10/2024 8:37 AM BOBBIN PAINTER Inhaled Oxygen Concentration - - Weight 65.6 kg (144 lb 9.6 oz) 08/10/2024 8:37 A M BOBBIN PAINTER Height 167.6 cm (5' 6) 08/10/2024 8:37 AM BOBBIN PAINTER Body Mass Index 23.34 08/10/2024 8:37 AM BOBBIN PAINTER Plan of Treatment Health Maintenance Due Date Last Done Comments Cervical Cancer Screening 1999 Depression Screening 1999 Hepatitis C Screening 1999 Regular Well Visit/Exam 18-64 12/15/2017 DTaP/Tdap/Td Vaccine (7 - Td or Tdap) 02/23/2021 02/23/2011, 03/01/2004, 03/03/2003, Additional history exists Covid-19 Vaccine ( season) 2024 08/17/2020, 07/27/2020 Influenza Vaccine (#1) 2025 , 05/20/2013, 06/03/2012 Hepatitis B Screening Completed 05/01/2001 , 01/13/2000, 1999 Varicella Vaccines Completed 03/13/2007, 11/04/2001 HPV Vaccines Completed 11/26/2013, 1112/2012, 06/03/2012 Pneumococcal vaccine <65 Aged Out No longer eligible based on patient's age to complete this topic Insurance [facility] MEDICAID [facility] MEDICAID [facility] [employer] [facility] MEDICAID [facility] MEDICAID Care Teams Burial Vault Setter Relationship Specialty Start Date End Date Mike Ugarte MD PCP - General 07/26/17 Mike Ugarte MD Pediatrics 07/25/17 Jessica Recinos, PT Physical Therapist Physical Therapy 07/26/17 Isabel Pineda NP [address] [place] [address] [place] [id number] Nurse Practitioner Nurse Practitioner 02/05/18 Brandi Lambert, PT Physical Therapist Physical Therapy 02/07/18
--- OUTSIDE RECORDS SUMMARY | 2025-03-24 16:26 | XMS_ITS | Clinical Summary ---
Author Organization [facility] Address [address] [place] [address] Care Team Providers Care Transverse Abdominal Muscle Surgeon Name Role Phone Jaylyn Andrade MD Primary Care Provider Source Comments [facility],non-owned Affiliates and Associated Physician Practices is amultiple site organization consisting of ambulatory clinics and hospital sitesin [place], [place], [place] and [place]. This disclosure is being madepursuant to the Care Everywhere program and may not contain all information available regarding this patient. Last updated 18.[facility] Allergies No known active allergies Medications * Be aware that medications may not be up to date on this document. Alwaysverify current medications with the patient. SUMAtriptan (IMITREX) 25 MG tablet 0 5 Active naproxen (NAPROSYN) 500 MG tabletIndicatio ns:Chronic daily headache Take 1 Tab by mouth 2 times daily as needed for Pain (moderate-severe headache). 12 Tab 2 5 Active nortriptyline (PAMELOR) 10 MG capsuleIndicati ons:Chronic daily headache 1 cap PO QHS x 2 weeks, then increase to 2 caps PO QHS 60 Cap 5 5 Active OneTouch Verio test strip 5 Active ONETOUCH DELICA PLUS 30G FINE LANCETS 4 times daily 5 Active ondansetron (Zofran) 4 MG tablet TAKE 1 TABLET BY MOUTH EVERY 6 HOURS NEEDED FOR NAUSEA OR VOMITING 5 Active Vit-Fe Fumarate-FA ( vitamin) 28-0.8 MG tablet Take 1 (one) tablet by mouth once daily Active Insulin Pen Needle 32G X 4 MM MISCIndications :31 weeks gestation of (HCC),Gestation al diabetes mellitus (GDM) affecting (HCC) Use 1 Each once daily 100 Each 2 5 Active Glucagon (Baqsimi Two Pack) 3 MG/DOSE POWD [place] 1 spray into the nose as needed 1 Each 5 Active insulin glargine (Lantus/Semglee ) 100 units/mL pen Inject 5 units at bedtime and increase as directed up to a max of 10 units per day. 3 mL 2 5 Active Additional Information Patient taking differently: Inject 6 units at bedtime and increase as directed up to a max of 10 units per day., Reason: Provider adjusted, Informant: Patient, Reported on 01/27/2025 butalbital-acet aminophen-caffe ine (Fioricet) 50-325-40 MG tablet Take 1 (one) tablet by mouth every 4 hours as needed for Headache Active famotidine (Pepcid) 20 MG tablet Take 1 (one) tablet by mouth once daily Active Active Problems Problem Noted Date Diagnosed Date 35 weeks gestation of 01/27/2025 Gestational diabetes mellitus (GDM) affecting pr egnancy 12/30/2024 Encounter for ultrasound to assess growth 12/30/2024 Choroid plexus cysts, , affecting care of mother, antepartum 12/30/2024 hydronephrosis in , antepartum co ndition 12/30/2024 Abdominal pain 08/22/2017 Nausea 08/22/2017 Depression 08/22/2017 Adjustment disorder with depressed [...] Comme nts Yes 02/25/2025 Based on last me nstrual period of 05/21/2024 Resolved Problems Problem Noted Date Diagnosed Date Resolved Date 31 weeks gestation of 12/30/2024 01/27/2025 Placenta previa without hemo rrhage, antepartum 12/30/2024 01/27/2025 Underweight 08/22/2017 01/27/2025 Encounters Date Type Department Care Team Description 02/08/2025 7:28 AM CDT - 02/08/2025 11:59 PM CDT Hospital Encounter [facility] [address] [place] [phone] Shelly Govea MD Discharge Disposition: Home or Self Care 02/05/2025 8:06 AM CDT - 02/05/2025 11:59 PM CDT Hospital Encounter [facility] [address] [place] [address] [phone] Noam Tao MD Discharge Disposition: Home or Self Care 02/02/2025 7:25 AM CDT - 02/02/2025 11:59 PM CDT Hospital Encounter [facility] [address] [place] [address] [phone] Gali Nguyen MD Discharge Disposition: Home or Self Care 01/29/2025 8:12 AM CDT - 01/29/2025 11:59 PM CDT Hospital Encounter [facility] [address] [place] [address] [phone] Noam Tao MD Discharge Disposition: Home or Self Care 01/27/2025 7:23 AM CDT - 01/27/2025 11:59 PM CDT Hospital Encounter [facility] [address] [place] [address] [phone] Gali Nguyen MD Discharge Disposition: Home or Self Care 01/22/2025 8:10 AM CDT - 01/22/2025 11:59 PM CDT Hospital Encounter [facility] [address] [place] [address] [phone] Debora Link MD HEALTH INFORMATION MANAGERS Discharge Disposition: Home or Self Care 01/19/2025 7:26 AM CDT - 01/19/2025 11:59 PM CDT Hospital Encounter [facility] [address] [place] [phone] Neto Bolden MD Boyle, Annelee C, MD Discharge Disposition: Home or Self Care 01/12/2025 2:27 PM CDT - 01/12/2025 11:59 PM CDT Hospital Encounter [facility] [address] [place] [address] [phone] Gali Nguyen MD Discharge Disposition: Home or Self Care 01/08/2025 8:09 AM CDT - 01/08/2025 11:59 PM CDT Hospital Encounter [facility] [address] [place] [address] [phone] Gali Nguyen MD Discharge Disposition: Home or Self Care 01/04/2025 7:27 AM CDT - 01/04/2025 11:59 PM CDT Hospital Encounter [facility] [address] [place] [address] [phone] Debora Link MD Discharge Disposition: Home or Self Care 12/30/2024 9:39 AM CDT - 12/30/2024 11:59 PM CDT Hospital Encounter [facility] [address] [place] [address] [phone] Noam Tao MD Discharge Disposition: Home or Self Care 12/24/2024 1:45 PM CDT - 12/24/2024 11:59 PM CDT Hospital Encounter [facility] [address] [place] [address] Noam Tao MD Discharge Disposition: Home or Self Care from Last 3 Months Social History Tobacco Use Types Packs/Day Years Used Date Smoking Tobacco: Never Assessed Estimated Date of Delivery Comme nts Yes 02/25/2025 Based on last me nstrual period of 05/21/2024 Sex and Gender Information Value Date Recorded Sex Assigned at Not on file Legal Sex Female 11:00 AM CDT Gender Identity Female 11/03/2024 5:38 PM CDT Sexual Orientation Not on file Last Filed Vital Signs Vital Sign Reading Time Taken Comments Blood Pressure 124/85 02/08/2025 8:36 AM CDT Pulse 95 02/08/2025 8:36 AM CDT Temperature 36.6 C (97.9 F) 07/25/2017 11:11 AM REMOTE SENSING PROGRAM MANAGER per pcp Respiratory Rate 16 07/25/2017 11:11 AM REMOTE SENSING PROGRAM MANAGER per pcp Oxygen Saturation - - Inhaled Oxygen Concentration - - Weight 73.9 kg (163 lb) 01/27/2025 7:50 AM CDT Height 167.6 cm (5' 6) 01/27/2025 7:50 AM CDT Body Mass Index 26.31 01/27/2025 7:50 AM CDT Plan of Treatment Health Maintenance Due Date Last Done Comments HIV SCREENING 12/15/2014 HPV VACCINE (1 - 3-dose series) 12/15/2014 HEPATITIS C SCREENING 12/11/2017 DTAP/TDAP/TD VACCINES (1 - Tdap) 12/15/2018 HEPATITIS B VACCINE (1 of 3 - 19+ 3-dose series) 12/15/2018 PAP SMEAR 12/15/2020 CHLAMYDIA/GONORRHEA SCREENING 12/03/2023 12/02/2022 DEPRESSION SCREENING 07/15/2024 OB-ONE HOUR GLUCOSE 11/19/2024 OB-TDAP CURRENT 11/26/2024 02/23/2011 OB-RHOGAM INJECTION 12/03/2024 OB-GROUP B STREP SCREEN 01/21/2025 COVID-19 VACCINE (2024-2 6 season) 2025 08/17/2020, 07/27/2020 INFLUENZA VACCINE (#1) 2025 , 05/20/2013, 06/03/2012 ZOSTER VACCINE (1 of 2) [...] Procedure Name Priority Date/Time Associated Diagnosis Comments BIOPHYSICAL PROFILE W [facility] Routine 02/08/2025 7:36 AM CDT Gestational diabetes mellitus (GDM) affecting (HCC) Placenta previa without hemorrhage, antepartum (HCC) hydronephrosis during , antepartum, single or unspecified fetus (HCC) Choroid plexus cyst of fetus affecting care of mother, antepartum, single or unspecified fetus (HCC) Encounter for ultrasound to assess growth (HCC) BIOPHYSICAL PROFILE W T Routine 02/02/2025 7:37 AM CDT 32 weeks gestation of (HCC) Gestational diabetes mellitus (GDM) affecting (HCC) Placenta previa without hemorrhage, antepartum (HCC) hydronephrosis during , antepartum, single or unspecified fetus (HCC) Choroid plexus cyst of fetus affecting care of mother, antepartum, single or unspecified fetus (HCC) Encounter for ultrasound (HCC) BIOPHYSICAL PROFILE W T Routine 01/27/2025 7:24 AM CDT 32 weeks gestation of (HCC) Gestational diabetes mellitus (GDM) affecting (HCC) Encounter for ultrasound (HCC) BIOPHYSICAL PROFILE W T Routine 01/19/2025 7:32 AM CDT 32 weeks gestation of (HCC) Gestational diabetes mellitus (GDM) affecting (HCC) Placenta previa without hemorrhage, antepartum (HCC) hydronephrosis during , antepartum, single or unspecified fetus (HCC) Choroid plexus cyst of fetus affecting care of mother, antepartum, single or unspecified fetus (HCC) Encounter for ultrasound (HCC) BIOPHYSICAL PROFILE W NST Routine 01/12/2025 3:08 PM CDT 32 weeks gestation of (HCC) Gestational diabetes mellitus (GDM) affecting (HCC) Placenta previa without hemorrhage, antepartum (HCC) hydronephrosis during , antepartum, single or unspecified fetus (HCC) Choroid plexus cyst of fetus affecting care of mother, antepartum, single or unspecified fetus (HCC) Encounter for ultrasound (HCC) BIOPHYSICAL PROFILE W NST Routine 01/04/2025 7:21 AM CDT 32 weeks gestation of (HCC) Gestational diabetes mellitus (GDM) affecting (HCC) Placenta previa without hemorrhage, antepartum (HCC) hydronephrosis during , antepartum, single or unspecified fetus (HCC) Choroid plexus cyst of fetus affecting care of mother, antepartum, single or unspecified fetus (HCC) Encounter for ultrasound (HCC) SONOGRAM - COMPLETE Routine 12/30/2024 1 1:29 AM CDT 31 weeks gestation of (HCC) Gestational diabetes mellitus (GDM) affecting (HCC) Placenta previa without hemorrhage, antepartum (HCC) Encounter for ultrasound to assess growth (HCC) Choroid plexus cyst of fetus affecting care of mother, antepartum, single or unspecified fetus (HCC) hydronephrosis during , antepartum, single or unspecified fetus (HCC) from Last 3 Months Results * Biophysical Profile w NST (02/08/2025 7:36 AM CDT) Only the most recent of6 resultswithin the time period is included. Linked Results Indication ======== Gestational diabetes mellitus in , insulin controlled History ====== OB History 2. Para 0 A1 Lab Tests Test Date Result NIPT Low risk, Male Maternal Assessment Physical Exam Height 168 cm, 5 ft 6 in. Weight 76 kg, 167 lb. Initial weight 65 kg, 144 lb. BMI 26.95 kg/m . Initial BMI 23.24 kg/m . Weight gain 10 kg, 23 lb Method ====== Transabdominal ultrasound examination. View: Sufficient ========= Pascual . Number of fetuses: 1 Dating ====== Date Details Gest. age NICHOLAS Stated NICHOLAS 37 w + 3 d 02/26/2025 Previous U/S 07/20/2024 GA, GA 8 w + 3 d 37 w + 3 d 02/26/2025 Assigned dating based on ultrasound (GA), selected on 11/02/2024 37 w + 3 d 02/26/2025 General Evaluation Cardiac activity present. FHR 149 bpm. Presentation: cephalic Placenta: Placental site: posterior. Accessory/succent uriate lobe: anterior Amniotic Fluid Assessment ==== Amount of AF: normal SULLY 18.1 cm. Q1 7.5 cm, Q2 3.6 cm, Q3 2.6 cm, Q4 4.5 cm Biophysical Profile 2: breathing movements 2: Gross body movements 2: tone 2: Amniotic fluid volume NST: reactive 10/10 Biophysical profile score Non Stress Test NST interpretation: reactive. Baseline FHR 140 bpm. Baseline variability: moderate. Decelerations: absent Growth Overview Exam date GA BPD (mm) HC (mm) AC (mm) FL (mm) HL (mm) EFW (g) 11/02/2024 23w 3d 59.7 78% 219.2 55% 194.1 64% 43.4 65% 40.6 76% 666 75% 11/30/2024 27w 3d 71.7 81% 264.5 66% 240.4 70% 54.8 78% 48.6 76% 1254 81% 12/30/2024 31w 5d 78.7 36% 295.5 38% 283.5 68% 65 83% 57.9 92% 2025 70% 01/27/2025 35w 5d 86.3 30% 322.1 34% 317.3 58% 71.7 71% 60.9 58% 2803 56% Anatomy The following structures appear normal: Abdomen Stomach. Kidneys. Bladder. sex: male. Impression ========= 1) Pascual gestation, 37w3d 2) The amniotic fluid volume is within normal limits 3) Reassuring biophysical profile Comment ======== ultrasound alone cannot detect all structural, genetic, or functional , placental, or maternal abnormalities Follow-up ======== Close maternal movement monitoring, weekly amniotic fluid assessment, and twice weekly NSTs Coding ====== Diagnoses O24.414: Gestational diabetes mellitus in , insulin controlled Procedures 20513: US Uterus Limited 85348: Biophysical Profile W NST [facility] PACS Anatomical Region Laterality Modality Other 02/08/2025 7:36 AM CDT Pardeep Smith MD [facility] ORDERABLES Edited Result - Final * SONOGRAM - COMPLETE (12/30/2024 11:29 AM CDT) Linked Results Indication ======== Low-lying placenta seen at hospital on Saturday12/25/24(patient went to hospital for migraine) GDM-A2 US 11/02- low-lying placenta, dilated kidneys, Left 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 Para 0 A1 Lab Tests Test Date Result NIPT Low risk, Male Maternal Assessment Physical Exam Height 168 cm, 5 ft 6 in. Weight 70 kg, 154 lb. Initial weight 65 kg, 144 lb. BMI 24.86 kg/m . Initial BMI 23.24 kg/m . Weight gain 5 kg, 10 lb Method ====== Transabdominal and transvaginal ultrasound. View: Sufficient ========= Pascual . Number of fetuses: 1 Dating ====== Date Details Gest. age NICHOLAS Stated NICHOLAS 31 w + 5 d 02/26/2025 Previous U/S 07/20/2024 GA, GA 8 w + 3 d 31 w + 5 d 02/26/2025 Assigned dating based on ultrasound (GA), selected on 11/02/2024 31 w + 5 d 02/26/2025 General Evaluation Cardiac activity present. FHR 158 bpm. Presentation: cephalic Placenta: Placental site: posterior, no previa. Placental [id number] os distance 28 mm Amniotic Fluid Assessment ==== Amount of AF: normal MVP 4.1 cm. SULLY 13.6 cm. Q1 4.1 cm, Q2 4.1 cm, Q3 2.1 cm, Q4 3.4 cm Biophysical Profile 2: breathing movements 2: Gross body movements 2: tone 2: Amniotic fluid volume NST: reactive 10/10 Biophysical profile score Non Stress Test NST interpretation: reactive. Baseline FHR 145 bpm. Baseline variability: moderate. Accelerations: present. Decelerations: absent. Uterine activity: absent Biometry BPD 78.7 mm 31w 4d 36% Hadlock HC 295.5 mm 32w 5d 38% Hadlock AC 283.5 mm 32w 3d 68% Hadlock Femur 65.0 mm 33w 4d 83% Hadlock Humerus 57.9 mm 33w 4d 92% Laisha HC / AC 1.04 Weight Calculation: EFW 2,026 g 70% Hadlock EFW (lb,oz) 4 lb 7 oz EFW by Hadlock ([id number]) appropriate Growth Overview Exam date GA BPD (mm) HC (mm) AC (mm) FL (mm) HL (mm) EFW (g) 11/02/2024 23w 3d 59.7 78% 219.2 55% 194.1 64% 43.4 65% 40.6 76% 666 75% 11/30/2024 27w 3d 71.7 81% 264.5 66% 240.4 70% 54.8 78% 48.6 76% 1254 81% 12/30/2024 31w 5d 78.7 36% 295.5 38% 283.5 68% 65 83% 57.9 92% 2025 70% Anatomy The following structures appear normal: Abdomen Stomach. Kidneys. Bladder. sex: male. Maternal Structures Cervix Normal Approach - Transvaginal: Cervical length 3.10 cm Funneling absent Impression ========= Single, live, intrauterine at 31w 5d The growth is appropriate. The amniotic fluid volume is normal. The biophysical profile is 10/10. Posterior placenta is not low-lying by transvaginal approach. Comment ======== ultrasound alone cannot detect all structural, genetic, or functional , placental, or maternal abnormalities Follow-up ======== for twice weekly NST, weekly biophysical profile Coding ====== Procedures 87671: [place] [address]: Biophysical Profile W NST 91223: US Preg Uterus Transvaginal [employer] PACS Anatomical Region Laterality Modality Other 12/30/2024 11:2 9 AM CDT Pardeep Smith MD [facility] ORDERABLES Edited Result - Final from Last 3 Months Insurance [employer] [facility] Care Teams Transverse Abdominal Muscle Surgeon Relationship Specialty Start Date End Date Jaylyn Adnrade MD [address] [place] [address] [place] [id number] PCP - General Pediatrics 11/05/14
[2025-03-24 17:00] LABS: Add Urine Microscopic? NO; Appearance Urine Clear (Clear); Glucose Urine UA Negative (Negative); Leukocyte Esterase Ur Negative LEU/UL (Negative); Nitrate Urine Negative (Negative); Specific Grav Ur 1.019 (1.001-1.035)
== END 2025-03-24 16:24 | disposition home or self-care (01) ==
LOC: ANHLAB 16:23
PROVIDERS: Visit Provider Obstetrics & Gynecology
DX: R30.0 Dysuria (principal)
CPT/HCPCS: 81003